=== PATIENT | male | born 1945 | race Caucasian/White ===

== ENCOUNTER 2023-10-08 08:02 | Outpatient (CLI) | payer MEDICARE, SELFPAY ==
--- NOTE | ~2023-10-08 | CT_ITS ---
EXAMINATION: CT abdomen pelvis wo/w con DATE: 10/08/2023 08:53 INDICATION: Kidney mass. TECHNIQUE: Computed tomography (CT) of the abdomen and pelvis was performed without and with 100 mL O mnipaque 350 intravenous contrast. Automated exposure control and iterative reconstruction technique were employed. The dose-length product was 1309.38 mGy-cm. COMPARISON: None. FINDINGS: The visualized portions of the lung bases demonstrate mild atelectasis. No pleural effusion . The heart is normal. There are coronary artery calcifications. No pericardial effusion. There is a small sliding hiatal hernia. There are cysts in the liver measuring up to 10 mm. There are gallstones in the gallbladder, which is normal in size. The spleen, pancreas, and right adrenal gland are maxx l. There is a 17 mm mass in left adrenal gland measuring low attenuation, consistent with an adenoma. Right kidney is normal. There is a 4.9 cm enhancing mass in left kidney. There is no urolithiasis. A penile prosthesis is noted. There is diverticulosis of the colon without evidence of diverticulitis. There are changes of appendectomy. There are no pathologically enlarged lymph nodes. There is no denia e intraperitoneal fluid. There are likely changes of left inguinal hernia repair. There is moderate l umbar stenosis. IMPRESSION: 1. 4.9 cm enhancing mass in left kidney, consistent with renal cell carcinoma versus urothelial carci noma. Reviewed, dictated and finalized at location A. IMPRESSION: 1. 4.9 cm enhancing mass in left kidney, consistent with renal cell carcinoma v ersus urothelial carcinoma.
[2023-10-08 08:37] LABS: Estimated Glomerular Filt Rate 49
== END 2023-10-08 08:03 | disposition home or self-care (01) ==
PROVIDERS: PCP Pediatrics; Visit Provider Urology
DX: N28.89 Other specified disorders of kidney and ureter (principal)
CPT/HCPCS: 74178; Q9967

== ENCOUNTER 2023-10-26 13:07 | Outpatient (CLI) | payer MEDICARE, SELFPAY ==
--- NOTE | 2023-10-26 14:28 | ECG_ITS ---
Test Date: 2023-10-26 14:44:33 Measurements Intervals [place] Rate: 71 P: 1 [place]: 195 QRS: -4 QRSD: 101 T: 28 QT: 378 QTc: 411 Interpretive Statements SINUS RHYTHM BORDERLINE R WAVE PROGRESSION, ANTERIOR LEADS CONSIDER INFERIOR INFARCT, AGE INDETERMINATE ABNORMAL ECG No previous ECG available for comparison Electronically Signed On 10-26-2023 14:54:32 CDT by Colton Boles D.O.
[2023-10-26 15:20] LABS: Hematocrit 50.9 % (42.0-52.0); Hemoglobin 17.2 g/dL (14.0-18.0); Mean Corpuscular HGB Conc 33.8 g/dl (32-36); Mean Corpuscular Volume 85.7 fl (80-100); Platelet Count Result 222 k/mm3 (150-375); Red Blood Count 5.94 M/mm3 (4.6-6.20); Red Cell Distribution Width 14.5 % (11.5-14.5); White Blood Count 8.4 K/mm3 (4.5-10.0)
[2023-10-26 15:21] LABS: Basophils Absolute Auto 0.1 K/mm3 (0.0-0.1); Basophils Percent Auto 0.8 % (0.2-1.2); Eosinophils Absolute Auto 0.2 K/mm3 (0-0.3); Eosinophils Percent Auto 2.1 % (0-4.4); Immature Granulocyte Absolute 0.05 K/mm3 (0.00-0.031); Immature Granulocyte Percent A 0.6 % (0-0.5); Lymphocytes Absolute Auto 2.68 K/mm3 (0.9-3.2); Mean Platelet Volume 10.4 fl (7.4-10.4); Monocytes Absolute Auto 0.9 K/mm3 (0.1-0.6); Monocytes Percent Auto 10.4 % (2.6-8.5); Neutrophils Absolute Auto 4.5 K/mm3 (1.3-6.7); Neutrophils Percent Auto 54.1 % (45.5-73.1)
[2023-10-26 15:28] LABS: Prothrombin Time 13.7 Seconds (11.1-14.7)
[2023-10-26 15:29] LABS: Partial Thromboplastin Time 28.2 Seconds (22.3-36.8)
[2023-10-26 15:39] LABS: Alanine Aminotransferase 22 U/L (6-50); Albumin Level 4.3 g/dL (3.5-5.1); Alkaline Phosphatase 71 U/L (38-126); Anion Gap 12 mmol/L (4-12); Aspartate Amino Transferase 26 U/L (17-59); Bilirubin,Total 1.6 mg/dL (0.2-1.3); Blood Urea Nitrogen 15 mg/dL (9-20); Calcium 9.1 mg/dL (8.4-10.2); Carbon Dioxide 24 mmol/L (22-30); Chloride 102 mmol/L (98-107); Estimated Glomerular Filt Rate > 60; Glucose 110 mg/dL (65-110); Potassium 3.4 mmol/L (3.4-5.0); Sodium 138 mmol/L (137-145)
== END 2023-10-26 13:08 | disposition home or self-care (01) ==
PROVIDERS: PCP Pediatrics; Visit Provider Urology
DX: Z01.818 Encounter for other preprocedural examination (principal); N28.89 Other specified disorders of kidney and ureter; I10 Essential (primary) hypertension; R94.31 Abnormal electrocardiogram [ECG] [EKG]
CPT/HCPCS: 36415; 80053; 85025; 85610; 85730; 86850; 86900; 86901; 87086; 93005

== ENCOUNTER 2023-11-02 12:59 | Inpatient (IN) | payer MEDICARE, SELFPAY ==
[2023-10-26 13:21] VITALS: BP 127/80; PULSE 94; RESP 16; TEMP 36.7; O2SAT 94
[2023-10-26 13:31] VITALS: BMI 27.8
--- NOTE | 2023-10-26 14:09 | PC.NURSE ---
Report to the Outpatient Waiting Room, entrance under the green pavilion located off [facility], at time __06:00am__on date 11/02/23 . Planned Procedure Time: __07:30am .? Time changes happen often and if your time is changed the preop area will call you the afternoon before. - You and your visitor will be asked to self-screen and do not enter if you have any COVID symptoms. Please call surgeon if you need to reschedule. - A mask is optional within the hospital at this time. Patients may have clear liquids (water, carbonated beverages, clear teas, apple juice) until 3 hours prior to surgery with a maximum of 20 ounces. - No food from midnight until time of surgery and no smoking - Infants may have breast milk until 4 hours before surgery, infant formula 6 hours prior to surgery. - Children will be allowed to drink immediately following surgery.? If applicable, please bring a bottle or sippy cup to assist with drinking. Juice, water, soda, and popsicles are readily available.? For infants on formula, please bring formula the day of surgery.? Pacifiers are allowed. Take only the following medications with a SIP of water on the morning of surgery: __Levothyroxine DO NOT STOP ANY OF YOUR OTHER PRESCRIPTION MEDICATIONS PRIOR TO SURGERY EXCEPT THE FOLLOWING Medications to discontinue per physician Hold all vitamins and Aspirin for [address] Ivory Date to take last dose___10/24/23 Please no make-up, nail citizen of [place], hairspray, perfume, deodorant, or body powder the day of surgery.? No jewelry (including any body piercings) or valuables the day of surgery, leave them at home.? Please take a shower or bath the night before, or the morning of, surgery with an antibacterial soap.? Wear comfortable, loose fitting clothing.? - Jewelry must be removed prior to entering the operating room.? Rings and piercings that are not removed may be cut off. - The hospital will not accept responsibility for valuables.? - Please leave all valuables, including medications, at home the day of surgery. If you are going home after surgery, a licensed limousine driver must drive you home.? - NO public transportation without another adult if you receive anesthesia. - We recommend that an adult stay with you for 24 hours following discharge. - We also recommend that you do not drive, make important decision, drink alcoholic beverages, or take any drugs that were not prescribed by your health care provider for at least 24 hours after your discharge time. Follow any additional instructions given to you from your surgeon. Pt to get a copy of Prep from Dr summers upon leaving here. Telephone instructions given to ___patient and asked if any additional questions and then verbalized understanding. Patient advised to call surgeon office or pre surgery nurse liaison [phone] if any additional questions.
[2023-11-02] VITALS (15 sets, daily range): BP systolic 124–155; BP diastolic 61–97; PULSE 67–98; RESP 11–19; TEMP 36.3–37.7; O2SAT 91–98
--- NOTE | ~2023-11-02 | US_ITS ---
US renal BI Ordering provider: Pasha Parsons MD History: . HUGH; s/p left nephrectomy . Comparison: None. Technique: Ultrasound bilateral kidneys. Findings: RIGHT KIDNEY: Measures 11.9x 5.1x 5.3 cm in length which is normal in size. No renal cysts. No renal mass or visualized echogenic stones. Otherwise, normal echotexture and contour. No hydronephrosis. No rmal renal cortical thickness. LEFT KIDNEY: Surgically removed. BLADDER: Not well distended. Penile reservoir is noted. IMPRESSION: No abnormality seen in the right kidney. Reviewed, dictated and finalized at location A.
--- NOTE | ~2023-11-02 | XR_ITS ---
EXAMINATION: XR chest 1V portable DATE: 11/04/2023 13:25 INDICATION: Acute kidney injury. TECHNIQUE: A single frontal view of the chest was obtained. COMPARISON: CT abdomen and pelvis 10/08/2023 FINDINGS: There is a small left pleural effusion. There are airspace opacities in the lower lung zone s. No pneumothorax. The heart size is normal. IMPRESSION: 1. Small left pleural effusion. 2. Airspace opacities in the lower lung zones, likely atelectasis. Reviewed, dictated and finalized at location A.
--- NOTE | 2023-11-02 07:09 | WPDHPUPDATE1 ---
History and Physical Update Update Date/Time: 11/02/23 07:09 History and Physical has been reviewed, including an updated exam of the patient. There are NO changes in the patient's condition. Risks, benefits, and alternatives have been discussed and questions answered. Patient agrees to proceed with procedure. Proceed with hand assist left nephrectomy, possible tur of orifice, ureteroscopy.
--- NOTE | 2023-11-02 07:33 | WPDANESEPP ---
Anes - Eval Pre Procedure Procedure: Operation Date: 11/02/23 07:30 Proposed Procedures p Hand-Assisted Laparoscopic Left Nephrectomy, Possible Left Nephroureterectomy with Trans Uretheral Resection of Orifice, Left Ureteroscopy - Jairon Ivory MD Date/Time: 11/02/23 07:33 Surgeon: Dianelys Pre Op Diagnosis: left renal mass Patient Data Age: 78 Gender: M Height: 1.75 m Weight: 85.7 kg Last Vital Signs Temp 36.7 C 10/26/23 13:21 Pulse 94 10/26/23 13:21 Resp 16 10/26/23 13:21 BP 127/80 10/26/23 13:21 Pulse Ox 94 10/26/23 13:21 O2 Del Method Room Air 10/26/23 13:21 Allergies Allergy/AdvReac Type Severity Reaction Status Date / Time cyclobenzaprine AdvReac Intermediate Diarrhea Verified 10/26/23 13:29 Home Medications Medication Instructions Recorded Confirmed Type Baby Aspirin 81 mg PO DAILY 10/26/23 10/26/23 History enalapril maleate 20 mg tablet 20 mg PO DAILY 10/26/23 10/26/23 History levothyroxine 75 mcg tablet 75 mcg PO DAILY 10/26/23 10/26/23 History omeprazole 40 mg capsule,delayed 40 mg PO DAILY 10/26/23 10/26/23 History release rosuvastatin 10 mg tablet 10 mg PO DAILY 10/26/23 10/26/23 History ECG: [id number] Patient hx anesthesia problems: none Family hx anesthesia problems: none Prior surgeries: prostatectomy Results Review: All pre-operative results and documents have been reviewed as part of the pre-operative evaluation. [facility] Social History Social History Smoking status: Never smoker Alcohol intake: current Drinks per week: 1 Substance use: never Living arrangements: alone Spiritual care concerns: No Comments HTN, HLD, GERD, hypothyroid, hiatal hernia, hx of TIA (no residual) Exam Day of Procedure 11/02/23 07:33 Heart: regular rate and rhythm Lungs: normal air movement Airway: Mallampati scale class II Neurological: alert and oriented
[2023-11-02] MEDS: ceFAZolin 2 GM/D5W 50 ML 2 GM/50 ML BAG IVPB (07:43)
[2023-11-02] MEDS: BUPivacaine HCL 0.5% PF 30 ML VIAL INFILTRATE (08:47)
--- NOTE | 2023-11-02 10:41 | W.PM.PROC2 ---
Procedure Note - Detailed Date of Procedure 11/02/23 Pre-op Diagnosis left renal mass Post-op Diagnosis Same Procedure Performed Hand assisted laparoscopic left nephrectomy Surgeon Jairon Ivory MD Anesthesia General Description of Procedure Patient was taken to the operative suite correctly identified. Once anesthesia was obtained was placed in a decubitus position with all pressure points padded. Saavedra catheter had been placed. Incision was made just lateral to the midline and carried down to the rectus fascia. The peritoneum was entered. GelPort was inserted. Working ports were then placed in standard fashion. White line of [place] was taken down. The colon was reflected. The gonadal vein was visualized and tracked up to the renal hilar area. The ureter was also visualized. Patient also has a 17 mm lesion in the left adrenal. Although it states it is an adenoma the adrenal was very adhered to the kidney. It was decided to take it with the specimen. At this point the renal vein was dissected out. Was transected with the endovascular stapler. The artery was also transected with endovascular stapler. Ureter was dissected down as far as I could take it. Patient does have a penile prosthesis with a reservoir present. I did not want to run the risk of disrupting anything anything in the pelvis where his reservoir was. The kidney was freed posteriorly and laterally. Hemostasis was adequate. We did place Tisseel along the renal hilar area. Surgicel was placed on top of it. All lap counts needle counts were correct. Specimen was then brought out through the hand port. The wound was irrigated. Peritoneum was closed using 3-0 chromic. Fascia was closed using 0 PDS double looped in a running fashion. Skin was closed using Monocryl. 3-0 chromic was also placed underneath the skin in the midline incision. Patient tolerated procedure well without any complications was taken recovery stable condition. This completes dictation. Please send a copy of note to my office. Estimated Blood Loss 100 Drains Yes (Saavedra) Packing No Pathology Yes Complications No immediate complications Condition Stable Disposition PACU
[2023-11-02] MEDS: LACTATED RINGERS 1,000 ML 30 ML IV CONT ×2 (11:01)
[2023-11-02 11:43] LABS: Hematocrit 48.4 % (42.0-52.0); Hemoglobin 16.1 g/dL (14.0-18.0)
[2023-11-02 11:56] LABS: Anion Gap 9 mmol/L (4-12); Blood Urea Nitrogen 11 mg/dL (9-20); Calcium 8.9 mg/dL (8.4-10.2); Carbon Dioxide 25 mmol/L (22-30); Chloride 103 mmol/L (98-107); Estimated CRCL calculation 38 ml/min; Estimated Glomerular Filt Rate 49; Glucose 147 mg/dL (65-110); Potassium 4.5 mmol/L (3.4-5.0); Sodium 137 mmol/L (137-145)
[2023-11-02] MEDS: fentaNYL CITRATE INJ (*CRX) 100 MCG/2 ML VIAL 25 MCG IV PUSH ×4 (12:36→12:52)
--- NOTE | 2023-11-02 13:11 | PC.NURSE ---
This patient, Helder Concepcion, was admitted to [facility] Surg Room 300-01 at 13:05. Patient/family oriented to hospital policies and general routines including ID bracelet, bed and alarms, visiting hours, pain management, procedures, bathroom and other care routines, personal items, smoking policy, room service/diet, and visiting hours. Information on how to activate the Rapid Response Team has been discussed. Patient/Family are encouraged to report perceived risks to care and to ask questions if they do not understand what they are told or what they should do.
[2023-11-02] MEDS: HYDROmorphone HCL INJ (*CRX) 1 MG/ML SYR 0.5 MG IV PUSH ×3 (13:44→22:23)
[2023-11-02] MEDS: SODIUM CHLORIDE 0.9% IV 1,000 ML 100 ML IV CONT (13:45)
[2023-11-02] MEDS: ONDANSETRON INJ 4 MG/2 ML VIAL IV PUSH (13:45)
[2023-11-02] MEDS: ceFAZolin 1 GM/NS 50 ML 1 GM/50 ML BAG IVPB ×2 (14:29→22:23)
[2023-11-02] MEDS: DOCUSATE SODIUM 100 MG CAPSULE PO (16:19)
[2023-11-02] MEDS: BENZOCAINE/MENTHOL (*BKC) 18 EA LOZENGE 1 LOZENGE PO (18:26)
[2023-11-02] MEDS: FAMOTIDINE 20 MG/2 ML VIAL IV PUSH (20:32)
[2023-11-02] MEDS: DEXTROSE 5%/LACTATED RINGERS 1,000 ML 150 ML IV CONT ×2 (20:32→20:40)
[2023-11-03 00:28] LABS: Glucose Point of Care 160 mg/dl (65-105)
[2023-11-03] MEDS: DEXTROSE 5%/LACTATED RINGERS 1,000 ML 150 ML IV CONT (04:55)
[2023-11-03 05:42] LABS: Basophils Percent Auto 0.2 % (0.2-1.2); Hematocrit 42.5 % (42.0-52.0); Immature Granulocyte Absolute 0.07 K/mm3 (0.00-0.031); Immature Granulocyte Percent A 0.5 % (0-0.5); Lymphocytes Absolute Auto 1.65 K/mm3 (0.9-3.2); Lymphocytes Percent Auto 12.7 % (18.3-44.2); Mean Corpuscular HGB Conc 32.9 g/dl (32-36); Mean Corpuscular Hemoglobin 28.3 pg (26-34); Mean Platelet Volume 10.6 fl (7.4-10.4); Monocytes Absolute Auto 1.5 K/mm3 (0.1-0.6); Monocytes Percent Auto 11.6 % (2.6-8.5); Neutrophils Absolute Auto 9.8 K/mm3 (1.3-6.7); Platelet Count Result 184 k/mm3 (150-375); Red Blood Count 4.94 M/mm3 (4.6-6.20); Red Cell Distribution Width 14.4 % (11.5-14.5)
[2023-11-03 05:53] LABS: Anion Gap 7 mmol/L (4-12); Blood Urea Nitrogen 17 mg/dL (9-20); Calcium 8.5 mg/dL (8.4-10.2); Carbon Dioxide 25 mmol/L (22-30); Chloride 102 mmol/L (98-107); Estimated CRCL calculation 28 ml/min; Estimated Glomerular Filt Rate 34; Glucose 114 mg/dL (65-110); Sodium 134 mmol/L (137-145)
[2023-11-03 05:56] VITALS: BP 114/69; PULSE 71; RESP 18; TEMP 37.4; O2SAT 97
[2023-11-03] MEDS: LEVOTHYROXINE SODIUM 75 MCG TABLET PO (06:03)
[2023-11-03] MEDS: ceFAZolin 1 GM/NS 50 ML 1 GM/50 ML BAG IVPB (06:04)
[2023-11-03 07:43] VITALS: BP 113/68; PULSE 73; RESP 16; TEMP 37.3; O2SAT 93
[2023-11-03] MEDS: DOCUSATE SODIUM 100 MG CAPSULE PO ×2 (08:23→16:06)
[2023-11-03] MEDS: ROSUVASTATIN 10 MG TABLET PO (08:23)
[2023-11-03] MEDS: FAMOTIDINE 20 MG/2 ML VIAL IV PUSH ×2 (08:23→20:47)
[2023-11-03] MEDS: ENALAPRIL MALEATE 10 MG TABLET 20 MG PO (08:24)
[2023-11-03 12:00] VITALS: BP 128/70; PULSE 84; RESP 16; TEMP 37; O2SAT 96
[2023-11-03] MEDS: HYDROcodone/acetaminophen (*CRX) 5-325 MG TABLET 2 TAB PO (12:02)
[2023-11-03 12:13] LABS: Glucose Point of Care 100 mg/dl (65-105)
--- NOTE | 2023-11-03 12:41 | P.PNUR_ITS ---
Progress Note: A&P Assessment and Plan (1) Left renal mass: Code(s): N28.89 - Other specified disorders of kidney and ureter Status: Acute Assessment and Plan: S/p left nephrectomy 11/02/23. POD#1 doing well. Continue to monitor. Advance diet. Plan for ayala removal tomorrow morning. Repeat BMP in morning. Subjective Subjective Date/Time Seen: 11/03/23 12:41 Interval history: Feeling fair today. Complains of some abdominal fullness. He is passing flatus b ut feels he needs to have a bowel movement. Denies flank pain or back pain. No incisional pain. Denies nausea, vomiting, fever, or chills. Tolerating his diet. No issues with ayala catheter. Review of Systems Review of Systems: All systems reviewed & are unremarkable except as noted in HPI and below Exam Narrative: General: Awake, alert, comfortable, no acute distress HEENT: Normocephalic, atraumatic, sclerae anicteric Respiratory: Normal respiratory effort, no accessory muscle use Abdomen: Nondistended, soft, nontender, incisions clean and dry : ayala catheter draining clear yellow urine Skin: Normal coloration, warm and dry Neurologic: No focal neuro deficits noted Psychiatric: Appropriate mood and affect, judgment and insight intact Objective Data Vital Signs Vital Signs: Vital Signs - 24 hr 11/02/23 12:50 11/02/23 13:15 11/02/23 13:30 Temperature 97.4 F L 98.0 F Pulse Rate 89 94 98 Respiratory Rate 11 L 12 14 Blood Pressure 150/88 H 141/90 H 127/89 Pulse Oximetry 95 96 95 Oxygen Delivery Nasal Cannula Oxygen Flow Rate 2 11/02/23 14:09 11/02/23 14:00 11/02/23 20:10 Temperature 98.5 F 99.8 F H Pulse Rate 97 91 Respiratory Rate 12 18 Blood Pressure 150/91 H 138/61 Pulse Oximetry 93 96 94 Oxygen Delivery Nasal Cannula Oxygen Flow Rate 2 11/02/23 23:40 11/03/23 05:56 11/03/23 07:43 Temperature 99.3 F 99.4 F 99.1 F Pulse Rate 97 71 73 Respiratory Rate 18 18 16 Blood Pressure 133/65 114/69 113/68 Pulse Oximetry 93 97 93 Oxygen Delivery Oxygen Flow Rate 11/03/23 08:23 11/03/23 12:00 Temperature 98.6 F Pulse Rate 84 Respiratory Rate 16 Blood Pressure 128/70 Pulse Oximetry 96 Oxygen Delivery Room Air Oxygen Flow Rate Intake/Output Intake/Output: Intake & Output 10/31/23 11/01/23 11/02/23 11/03/23 23:59 23:59 23:59 23:59 Intake Total 1046.7 1400 Output Total 775 Balance 1046.7 625 Meds/Results Medications: Active Medications Generic Name Dose Route Start Last Admin Trade Name Freq PRN Reason Stop Dose Admin Hydrocodone Bitart/Acetaminophen 1 tab 11/03/23 05:00 Hydrocodone/Acetaminophen (*Crx) 5-325 Mg Tablet PO Q4H PRN Pain Rated 1-3 Hydrocodone Bitart/Acetaminophen 2 tab 11/03/23 05:00 11/03/23 12:02 Hydrocodone/Acetaminophen (*Crx) 5-325 Mg Tablet PO 2 tab Q4H PRN Administration Pain Rated 4-6 Benzocaine 1 lozenge 11/02/23 18:04 11/02/23 18:26 Benzocaine/Menthol (*Bkc) 18 Ea Lozenge PO 1 lozenge PRN PRN Administration Sore Throat Docusate Sodium 100 mg 11/02/23 17:00 11/03/23 08:23 Docusate Sodium 100 Mg Capsule PO 100 mg BID JUANJO Administration Enalapril Maleate 20 mg 11/03/23 09:00 11/03/23 08:24 Enalapril Maleate 10 Mg Tablet PO 20 mg DAILY JUANJO Administration Famotidine 20 mg 11/02/23 21:00 11/03/23 08:23 Famotidine 20 Mg/2 Ml Vial IV PUSH 11/04/23 09:01 20 mg Q12HR JUANJO Administration Hydromorphone HCl 0.5 mg 11/02/23 12:59 11/02/23 22:23 Hydromorphone Hcl Inj (*Crx) 1 Mg/Ml Syr IV PUSH 0.5 mg Q4H PRN Administration Pain Rated 7-10 Dextrose/Lactated Ringer's 1,000 mls @ 150 mls/hr 11/02/23 12:59 11/03/23 04:55 Dextrose 5%/Lactated Ringers IV CONT 150 mls/hr .Q6H40M JUANJO Administration Sodium Chloride 1,000 mls @ 100 mls/hr 11/02/23 12:59 11/02/23 20:31 Normal Saline Iv IV CONT 0 mls/hr .Q10H JUANJO Infusion Levothyroxine Sodium 75 mcg 11/03/23 06:30 11/03/23 06:03 Levothyroxine Sodium 75 Mcg Tablet PO 75 mcg DAILY@0630 JUANJO Administration Morphine Sulfate 1 mg 11/02/23 12:59 Morphine Sulfate (*Crx) 2 Mg/Ml Inj IV PUSH Q2H PRN Pain Rated 4-6 Naloxone HCl 0.1 mg 11/02/23 12:59 Naloxone Hcl 0.4 Mg/Ml Vial IV PUSH Q2M PRN Opiate Reversal Ondansetron HCl 4 mg 11/02/23 12:59 11/02/23 13:45 Ondansetron Inj 4 Mg/2 Ml Vial IV PUSH 4 mg Q6H PRN Administration Nausea And Vomiting Rosuvastatin Calcium 10 mg 11/03/23 09:00 11/03/23 08:23 Rosuvastatin 10 Mg Tablet PO 10 mg DAILY JUANJO Administration Labs Labs: Laboratory Results - last 24 hr 11/02/23 11/03/23 11/03/23 23:43 05:15 12:11 WBC 13.0 H RBC 4.94 Hgb 14.0 Hct 42.5 MCV 86.0 MCH 28.3 MCHC 32.9 RDW 14.4 Plt Count 184 MPV 10.6 H Immature Gran % (Auto) 0.5 Neut % (Auto) 75.0 H Lymph % (Auto) 12.7 L [place] % (Auto) 11.6 H Eos % (Auto) 0.0 Baso % (Auto) 0.2 Lymph # (Auto) 1.65 [place] # (Auto) 1.5 H Eos # (Auto) 0.0 Baso # (Auto) 0.0 Abs Immat Gran (auto) 0.07 H Absolute Neuts (auto) 9.8 H Absolute Nucleated RBC 0.000 Nucleated RBC % 0.0 Sodium 134 L Potassium 4.0 Chloride 102 Carbon Dioxide 25 Anion Gap 7 BUN 17 Creatinine 1.90 H Estim Creat Clear Calc 28 Estimated GFR 34 L Glucose 114 H POC Capillary Glucose 160 H 100 Calcium 8.5
[2023-11-03 18:13] LABS: Glucose Point of Care 109 mg/dl (65-105)
[2023-11-03 20:48] VITALS: BP 118/70; PULSE 88; RESP 16; TEMP 37.4; O2SAT 94
[2023-11-04 01:16] VITALS: BP 117/66; PULSE 96; RESP 16; TEMP 37.7; O2SAT 93
[2023-11-04] MEDS: DEXTROSE 5%/LACTATED RINGERS 1,000 ML 75 ML IV CONT ×2 (01:30→09:05)
[2023-11-04 03:26] LABS: Glucose Point of Care 123 mg/dl (65-105)
[2023-11-04 05:00] VITALS: BP 136/68; PULSE 87; RESP 16; TEMP 37.5; O2SAT 93
[2023-11-04] MEDS: LEVOTHYROXINE SODIUM 75 MCG TABLET PO (06:32)
[2023-11-04] MEDS: HYDROcodone/acetaminophen (*CRX) 5-325 MG TABLET 2 TAB PO (06:36)
[2023-11-04 07:08] LABS: Hematocrit 40.6 % (42.0-52.0); Hemoglobin 13.8 g/dL (14.0-18.0); Mean Corpuscular Hemoglobin 29.2 pg (26-34); Mean Platelet Volume 10.8 fl (7.4-10.4); Platelet Count Result 153 k/mm3 (150-375); Red Blood Count 4.72 M/mm3 (4.6-6.20); Red Cell Distribution Width 14.4 % (11.5-14.5); White Blood Count 10.4 K/mm3 (4.5-10.0)
[2023-11-04 07:19] LABS: Anion Gap 6 mmol/L (4-12); Blood Urea Nitrogen 15 mg/dL (9-20); Calcium 8.3 mg/dL (8.4-10.2); Carbon Dioxide 24 mmol/L (22-30); Chloride 103 mmol/L (98-107); Estimated CRCL calculation 24 ml/min; Estimated Glomerular Filt Rate 29; Glucose 109 mg/dL (65-110); Potassium 3.6 mmol/L (3.4-5.0); Sodium 133 mmol/L (137-145)
[2023-11-04 08:00] VITALS: BP 134/76; PULSE 83; RESP 18; TEMP 37.3; O2SAT 91
[2023-11-04] MEDS: DOCUSATE SODIUM 100 MG CAPSULE PO ×2 (09:05→16:51)
[2023-11-04] MEDS: ENALAPRIL MALEATE 10 MG TABLET 20 MG PO (09:05)
[2023-11-04] MEDS: ROSUVASTATIN 10 MG TABLET PO (09:05)
[2023-11-04] MEDS: FAMOTIDINE 20 MG/2 ML VIAL IV PUSH (09:05)
--- NOTE | 2023-11-04 09:31 | P.PNUR_ITS ---
Progress Note: A&P Assessment and Plan (1) Left renal mass: Code(s): N28.89 - Other specified disorders of kidney and ureter Status: Acute Assessment and Plan: S/p left nephrectomy 11/02/23. POD#2, doing well. Continue to monitor. Will plan for ayala removal today. Urine output is good. (2) Acute kidney injury: Code(s): N17.9 - Acute kidney failure, unspecified Status: Acute Assessment and Plan: Creatinine trending up to 2.2 today. Will request nephrology consultation for further evaluation; appreciate recommendations. (3) Constipation: Code(s): K59.00 - Constipation, unspecified Status: Acute Assessment and Plan: Will continue miralax and stool softeners Subjective Subjective Date/Time Seen: 11/04/23 09:31 Interval history: Doing well today. Complains of constipation. Denies abdominal fullness/distension. Denies flank pain or back pain. No nausea, vomiting, fever, or chills. Tolerating his diet. Review of Systems Review of Systems: All systems reviewed & are unremarkable except as noted in HPI and below Exam 2 Narrative: General: Awake, alert, comfortable, no acute distress HEENT: Normocephalic, atraumatic, sclerae anicteric Respiratory: Normal respiratory effort, no accessory muscle use Abdomen: Nondistended, soft, nontender, incisions clean and dry : ayala catheter draining clear yellow urine Skin: Normal coloration, warm and dry Neurologic: No focal neuro deficits noted Psychiatric: Appropriate mood and affect, judgment and insight intact Objective Data Vital Signs Vital Signs: Vital Signs - 24 hr 11/03/23 12:00 11/03/23 20:48 11/04/23 01:16 Temperature 98.6 F 99.4 F 99.8 F H Pulse Rate 84 88 96 Respiratory Rate 16 16 16 Blood Pressure 128/70 118/70 117/66 Pulse Oximetry 96 94 93 Oxygen Delivery 11/04/23 05:00 11/04/23 08:00 11/04/23 08:00 Temperature 99.5 F 99.1 F Pulse Rate 87 83 Respiratory Rate 16 18 Blood Pressure 136/68 134/76 Pulse Oximetry 93 91 Oxygen Delivery Room Air Intake/Output Intake/Output: Intake & Output 11/01/23 11/02/23 11/03/23 11/04/23 23:59 23:59 23:59 23:59 Intake Total 1046.7 1760 2663.7 Output Total 775 1100 Balance 1046.7 985 1563.7 Meds/Results Medications: Active Medications Generic Name Dose Route Start Last Admin Trade Name Freq PRN Reason Stop Dose Admin Hydrocodone Bitart/Acetaminophen 1 tab 11/03/23 05:00 Hydrocodone/Acetaminophen (*Crx) 5-325 Mg Tablet PO Q4H PRN Pain Rated 1-3 Hydrocodone Bitart/Acetaminophen 2 tab 11/03/23 05:00 11/04/23 06:36 Hydrocodone/Acetaminophen (*Crx) 5-325 Mg Tablet PO 2 tab Q4H PRN Administration Pain Rated 4-6 Benzocaine 1 lozenge 11/02/23 18:04 11/02/23 18:26 Benzocaine/Menthol (*Bkc) 18 Ea Lozenge PO 1 lozenge PRN PRN Administration Sore Throat Docusate Sodium 100 mg 11/02/23 17:00 11/04/23 09:05 Docusate Sodium 100 Mg Capsule PO 100 mg BID JUANJO Administration Enalapril Maleate 20 mg 11/03/23 09:00 11/04/23 09:05 Enalapril Maleate 10 Mg Tablet PO 20 mg DAILY JUANJO Administration Hydromorphone HCl 0.5 mg 11/02/23 12:59 11/02/23 22:23 Hydromorphone Hcl Inj (*Crx) 1 Mg/Ml Syr IV PUSH 0.5 mg Q4H PRN Administration Pain Rated 7-10 Dextrose/Lactated Ringer's 1,000 mls @ 75 mls/hr 11/02/23 12:59 11/04/23 09:05 Dextrose 5%/Lactated Ringers IV CONT 75 mls/hr .[id number] JUANJO Administration Sodium Chloride 1,000 mls @ 100 mls/hr 11/02/23 12:59 11/02/23 20:31 Normal Saline Iv IV CONT 0 mls/hr .Q10H JUANJO Infusion Levothyroxine Sodium 75 mcg 11/03/23 06:30 11/04/23 06:32 Levothyroxine Sodium 75 Mcg Tablet PO 75 mcg DAILY@0630 JUANJO Administration Morphine Sulfate 1 mg 11/02/23 12:59 Morphine Sulfate (*Crx) 2 Mg/Ml Inj IV PUSH Q2H PRN Pain Rated 4-6 Naloxone HCl 0.1 mg 11/02/23 12:59 Naloxone Hcl 0.4 Mg/Ml Vial IV PUSH Q2M PRN Opiate Reversal Ondansetron HCl 4 mg 11/02/23 12:59 11/02/23 13:45 Ondansetron Inj 4 Mg/2 Ml Vial IV PUSH 4 mg Q6H PRN Administration Nausea And Vomiting Polyethylene Glycol 17 gm 11/03/23 12:57 Polyethylene Glycol 3350 17 Gm Powd.Pack PO QAM PRN Constipation Rosuvastatin Calcium 10 mg 11/03/23 09:00 11/04/23 09:05 Rosuvastatin 10 Mg Tablet PO 10 mg DAILY JUANJO Administration Labs Labs: Laboratory Results - last 24 hr 11/03/23 11/03/23 11/04/23 12:11 18:08 01:09 WBC RBC Hgb Hct MCV MCH MCHC RDW Plt Count MPV Sodium Potassium Chloride Carbon Dioxide Anion Gap BUN Creatinine Estim Creat Clear Calc Estimated GFR Glucose POC Capillary Glucose 100 109 H 123 H Calcium 11/04/23 06:18 WBC 10.4 H RBC 4.72 Hgb 13.8 L Hct 40.6 L MCV 86.0 MCH 29.2 MCHC 34.0 RDW 14.4 Plt Count 153 MPV 10.8 H Sodium 133 L Potassium 3.6 Chloride 103 Carbon Dioxide 24 Anion Gap 6 BUN 15 Creatinine 2.20 H Estim Creat Clear Calc 24 Estimated GFR 29 L Glucose 109 POC Capillary Glucose Calcium 8.3 L
[2023-11-04] MEDS: polyethylene glycoL 3350 17 GM POWD.PACK PO (10:09)
[2023-11-04 12:00] VITALS: BP 118/74; PULSE 69; RESP 18; TEMP 36.8; O2SAT 94
--- NOTE | 2023-11-04 12:05 | PM.CNNEP ---
Assessment and Plan Assessment and plan (1) Acute kidney injury: Code(s): N17.9 - Acute kidney failure, unspecified Status: Acute Assessment and Plan: baseline creatinine seems to run ~ 1.1 - 1.4mg/dl up to 1.9 yesterday, and now 2.2mg/dl by AM labs no associated critical electrolytes, acid-base disorder or volume overload making good urine output etiology not clear... no apparent issues with hypotension post procedure or during operation check UA, urine studies, CPK and renal ultrasound hold SATISH-I follow trend of repeat labs and UOP (2) Left renal mass: Code(s): N28.89 - Other specified disorders of kidney and ureter Status: Acute Assessment and Plan: s/p hand assisted laparoscopic left nephrectomy (on 11/02/23) Urology following (3) Hypertension: Code(s): I10 - Essential (primary) hypertension Status: Chronic Assessment and Plan: reasonable control at this time plan on holding SATISH-I may need another temporary BP agent (i.e. hydralazine or amlodipine) if BP rises off enalapril follow trend of hemodynamics I will continue to follow the patient with you while he remains hospitalized and make further recommendations as deemed necessary. Thank you for allowing me to participate in the care of this patient. History of Present Illness Reason for Consult Consult date: 11/04/23 Reason for consult: acute renal failure Chief Complaint Chief complaint: left renal mass History of Present Illness Narrative: The patient is an 78-year-old male with a past medical history as outlined below who was directly admitted to [facility] following his scheduled left nephrectomy done on 11/02/2023. The patient was noted to have a left renal mass by outpatient testing that was concerning for possible malignancy. He was referred to Urology for further evaluation of this issue and options were discussed with the patient in terms of treatment and he elected to proceed with a hand assisted laparoscopic left nephrectomy for definitive treatment of this issue. He underwent this procedure on 11/02/2023 without any issues or problems and was admitted to the hospital for routine postoperative care. It was noted by labs the following day after his surgery that his creatinine increased to 1.9 and subsequently up to 2.2 mg/dL by labs done this morning. In spite of this change in his renal function, he has no critical electrolyte abnormalities and continues to make fairly good urine output as well. He was initially on IV fluids but he has been eating and drinking reasonably well so these were discontinued today. Renal consultation was requested due to his acute kidney injury/acute renal failure. From review his records, his baseline creatinine seems run around 1.1 - 1.4mg/dl. His creatinine on admission was 1.4 mg/dL prior to the recent decline. As already mentioned, despite the rise in his creatinine, he continues to make fairly good urine output and has not had any issues or problems with critical electrolyte abnormalities, metabolic acidosis, or volume overload. His IV fluids were discontinued today as he has been eating and drinking reasonably well and has not had any issues or problems with postoperative nausea/vomiting. Currently, at the time my visit, he feels reasonably well. Review of Systems Review of Systems: As per HPI. [facility] Past Medical History Medical History (Updated 11/05/23 @ 10:13 by Pasha Parsons MD) Benign hypertension with chronic kidney disease GERD (gastroesophageal reflux disease) Hyperlipidemia Hypothyroidism Social History Social History Smoking status: Never smoker Alcohol intake: current Drinks per week: 0 Substance use: never Do You Feel Safe in your Home?: Yes Lack of Transportation: No Lack of Food: Never True Current Housing: I Have Housing Concerned About Future Housing: No Difficulty Paying Gas/Electric Bills: No Difficulty Paying for Meds: No Currently Unemployed: No Education: Decline to Answer Difficulty w/ Childcare or Family Care: No Living arrangements: alone Spiritual care concerns: No Meds Home Medications and Allergies Home Medications Medication Instructions Recorded Confirmed Type Baby Aspirin 81 mg PO DAILY 10/26/23 10/26/23 History enalapril maleate 20 mg tablet 20 mg PO DAILY 10/26/23 10/26/23 History levothyroxine 75 mcg tablet 75 mcg PO DAILY 10/26/23 11/02/23 History omeprazole 40 mg capsule,delayed 40 mg PO DAILY 10/26/23 10/26/23 History release rosuvastatin 10 mg tablet 10 mg PO DAILY 10/26/23 10/26/23 History Allergies Allergy/AdvReac Type Severity Reaction Status Date / Time cyclobenzaprine AdvReac Intermediate Diarrhea Verified 11/02/23 07:43 Vital Signs Vital Signs Temp Pulse Resp BP Pulse Ox O2 Del Method 11/04/23 12:00 98.3 F 69 18 118/74 94 11/04/23 08:00 Room Air 11/04/23 08:00 99.1 F 83 18 134/76 91 11/04/23 05:00 99.5 F 87 16 136/68 93 11/04/23 01:16 99.8 F H 96 16 117/66 93 11/03/23 20:48 99.4 F 88 16 118/70 94 Exam Narrative: GENERAL APPEARANCE: elderly but well developed well nourished male in no acute distress HEENT: normocephalic, atraumatic, normal conjunctiva and sclera, nares patient NECK: no lymphadenopathy, thyromegaly, or JVD MOUTH: normal lips, teeth, and gums CARDIOVASCULAR: RRR, normal S1 and S2, no rub RESPIRATORY: clear to auscultation bilaterally ABDOMEN: soft, nontender, nondistended, positive bowel sounds present; incision c/d/i EXTREMITIES: no evidence of cyanosis, clubbing, or edema NEUROLOGICAL: alert and oriented x 3; CN II - XII intact bilaterally; no focal deficits noted Results Lab Results 11/05/23 05:30 11/05/23 05:30 Lab results: Most recent lab results Calcium 8.3 mg/dL (8.4-10.2) L 11/04/23 06:18 Urine Creatinine 63.3 mg/dL 11/04/23 14:07
[2023-11-04 14:50] LABS: Creatinine Urine 63.3 mg/dL; Total Protein Urine Random 48 mg/dL; Urea Random Urine 243 MG/DL
[2023-11-04 14:52] LABS: Creatinine Urine 63.1 mg/dL; Total Protein Urine Random 48 mg/dL; Ur Ttl Prot Creatinine Ratio 0.76 mg/mg (0-0.20)
[2023-11-04 14:53] LABS: Sodium Urine Random 26 meq/L
[2023-11-04 15:08] LABS: Bacteria Urine None Seen /hpf; Bilirubin Urine Negative (Negative); Blood Urine 2+ (Negative); Color Urine Yellow (Yellow); Glucose Urine UA Negative (Negative); Ketones Urine Negative (Negative); Leukocyte Esterase Ur Trace LEU/UL (Negative); Nitrate Urine Negative (Negative); Non Pathogenic Casts 0-2; Protein Urine Trace mg/dL (Negative); Specific Grav Ur 1.006 (1.001-1.035); Squamous Epithelial Cell Urine None Seen /hpf (Few); Urobilinogen Urine 0.2 mg/dL (<2.0); WBC Urine 0-5 /hpf (0-3); pH Urine 6.5 (5.0-9.0)
[2023-11-04 15:20] LABS: Eosinophil Urine None Seen % (None Seen); Urine Eos QC 2nd Tech Confirmed
[2023-11-04 15:22] LABS: Add Urine Microscopic? YES; Appearance Urine Clear (Clear)
[2023-11-04 16:00] VITALS: BP 124/68; PULSE 74; RESP 18; TEMP 36.8; O2SAT 96
[2023-11-04 20:00] VITALS: BP 150/84; PULSE 84; RESP 16; TEMP 36.8; O2SAT 94
[2023-11-04] MEDS: HYDROcodone/acetaminophen (*CRX) 5-325 MG TABLET 1 TAB PO (21:40)
[2023-11-04] MEDS: SODIUM CHLORIDE 0.9% IV 1,000 ML 100 ML IV CONT (21:42)
[2023-11-05 00:40] VITALS: BP 115/62; PULSE 86; RESP 16; TEMP 36.7; O2SAT 94
[2023-11-05] MEDS: LEVOTHYROXINE SODIUM 75 MCG TABLET PO (05:44)
[2023-11-05 06:10] VITALS: BP 154/83; PULSE 71; RESP 16; TEMP 36.3; O2SAT 91
[2023-11-05 06:14] LABS: Basophils Percent Auto 0.4 % (0.2-1.2); Eosinophils Absolute Auto 0.2 K/mm3 (0-0.3); Eosinophils Percent Auto 2.6 % (0-4.4); Hematocrit 39.6 % (42.0-52.0); Hemoglobin 13.2 g/dL (14.0-18.0); Immature Granulocyte Absolute 0.05 K/mm3 (0.00-0.031); Immature Granulocyte Percent A 0.6 % (0-0.5); Lymphocytes Absolute Auto 1.51 K/mm3 (0.9-3.2); Lymphocytes Percent Auto 17.6 % (18.3-44.2); Mean Corpuscular HGB Conc 33.3 g/dl (32-36); Mean Corpuscular Hemoglobin 28.9 pg (26-34); Mean Corpuscular Volume 86.7 fl (80-100); Mean Platelet Volume 10.5 fl (7.4-10.4); Monocytes Percent Auto 11.3 % (2.6-8.5); Neutrophils Absolute Auto 5.8 K/mm3 (1.3-6.7); Neutrophils Percent Auto 67.5 % (45.5-73.1); Platelet Count Result 152 k/mm3 (150-375); Red Blood Count 4.57 M/mm3 (4.6-6.20); Red Cell Distribution Width 14.4 % (11.5-14.5); White Blood Count 8.6 K/mm3 (4.5-10.0)
[2023-11-05 06:27] LABS: Alanine Aminotransferase 11 U/L (6-50); Alkaline Phosphatase 50 U/L (38-126); Anion Gap 1 mmol/L (4-12); Aspartate Amino Transferase 30 U/L (17-59); Bilirubin,Total 2.6 mg/dL (0.2-1.3); Blood Urea Nitrogen 17 mg/dL (9-20); Calcium 8.3 mg/dL (8.4-10.2); Carbon Dioxide 24 mmol/L (22-30); Chloride 103 mmol/L (98-107); Creatine Kinase 332 U/L (55-170); Estimated CRCL calculation 23 ml/min; Estimated Glomerular Filt Rate 27; Glucose 90 mg/dL (65-110); Potassium 3.8 mmol/L (3.4-5.0); Sodium 128 mmol/L (137-145)
[2023-11-05] MEDS: DOCUSATE SODIUM 100 MG CAPSULE PO ×2 (08:05→16:54)
[2023-11-05] MEDS: polyethylene glycoL 3350 17 GM POWD.PACK PO (08:05)
[2023-11-05] MEDS: ROSUVASTATIN 10 MG TABLET PO (08:05)
--- NOTE | 2023-11-05 09:18 | WPDUROPN2 ---
Progress Note: A&P Assessment and Plan (1) Left renal mass: Code(s): N28.89 - Other specified disorders of kidney and ureter Status: Acute Assessment and Plan: S/p left nephrectomy 11/02/23. POD#3, doing well. Continue to monitor. (2) Acute kidney injury: Code(s): N17.9 - Acute kidney failure, unspecified Status: Acute Assessment and Plan: Creatinine trending up to 2.3 today. Appreciate Nephrology consultation. Laboratory workup so for unrevealing. Continue to monitor renal function closely (3) Constipation: Code(s): K59.00 - Constipation, unspecified Status: Acute Assessment and Plan: Will continue miralax and stool softeners (4) Hyponatremia: Code(s): E87.1 - Hypo-osmolality and hyponatremia Status: Acute Assessment and Plan: Slight decline in sodium today to 128. Will request hospitalist consultation for further evaluation; appreciate recommendations Subjective Subjective Date/Time Seen: 11/05/23 09:18 Interval history: Doing well today. Has been up walking around the halls. Saavedra removed yesterday and he has been voiding without difficulty. Continues to complain of constipation but now passing flatus. Tolerating his diet. No N/V/F/C. No abdominal pain or flank pain. Review of Systems Review of Systems: All systems reviewed & are unremarkable except as noted in HPI and below Exam Narrative: General: Awake, alert, comfortable, no acute distress HEENT: Normocephalic, atraumatic, sclerae anicteric Respiratory: Normal respiratory effort, no accessory muscle use Abdomen: Nondistended, soft, nontender Skin: Normal coloration, warm and dry Neurologic: No focal neuro deficits noted Psychiatric: Appropriate mood and affect, judgment and insight intact Objective Data Vital Signs Vital Signs: Vital Signs - 24 hr 11/04/23 12:00 11/04/23 16:00 11/04/23 20:00 Temperature 98.3 F 98.3 F 98.2 F Pulse Rate 69 74 84 Respiratory Rate 18 18 16 Blood Pressure 118/74 124/68 150/84 H Pulse Oximetry 94 96 94 Oxygen Delivery 11/04/23 20:00 11/05/23 00:40 11/05/23 06:10 Temperature 98.0 F 97.4 F L Pulse Rate 86 71 Respiratory Rate 16 16 Blood Pressure 115/62 154/83 H Pulse Oximetry 94 91 Oxygen Delivery Room Air 11/05/23 08:05 Temperature Pulse Rate Respiratory Rate Blood Pressure Pulse Oximetry Oxygen Delivery Room Air Intake/Output Intake/Output: Intake & Output 11/02/23 11/03/23 11/04/23 11/05/23 23:59 23:59 23:59 23:59 Intake Total 1046.7 1760 3403.7 Output Total 775 1750 950 Balance 1046.7 985 1653.7 -950 Meds/Results Medications: Active Medications Generic Name Dose Route Start Last Admin Trade Name Freq PRN Reason Stop Dose Admin Hydrocodone Bitart/Acetaminophen 1 tab 11/03/23 05:00 11/04/23 21:40 Hydrocodone/Acetaminophen (*Crx) 5-325 Mg Tablet PO 1 tab Q4H PRN Administration Pain Rated 1-3 Hydrocodone Bitart/Acetaminophen 2 tab 11/03/23 05:00 11/04/23 06:36 Hydrocodone/Acetaminophen (*Crx) 5-325 Mg Tablet PO 2 tab Q4H PRN Administration Pain Rated 4-6 Benzocaine 1 lozenge 11/02/23 18:04 11/02/23 18:26 Benzocaine/Menthol (*Bkc) 18 Ea Lozenge PO 1 lozenge PRN PRN Administration Sore Throat Docusate Sodium 100 mg 11/02/23 17:00 11/05/23 08:05 Docusate Sodium 100 Mg Capsule PO 100 mg BID JUANJO Administration Enalapril Maleate 20 mg 11/03/23 09:00 11/04/23 09:05 Enalapril Maleate 10 Mg Tablet PO 20 mg DAILY JUANJO Administration Hydromorphone HCl 0.5 mg 11/02/23 12:59 11/02/23 22:23 Hydromorphone Hcl Inj (*Crx) 1 Mg/Ml Syr IV PUSH 0.5 mg Q4H PRN Administration Pain Rated 7-10 Sodium Chloride 1,000 mls @ 100 mls/hr 11/02/23 12:59 11/02/23 20:31 Normal Saline Iv IV CONT 0 mls/hr .Q10H JUANJO Infusion Levothyroxine Sodium 75 mcg 11/03/23 06:30 11/05/23 05:44 Levothyroxine Sodium 75 Mcg Tablet PO 75 mcg DAILY@0630 JUANJO Administration Morphine Sulfate 1 mg 11/02/23 12:59 Morphine Sulfate (*Crx) 2 Mg/Ml Inj IV PUSH Q2H PRN Pain Rated 4-6 Naloxone HCl 0.1 mg 11/02/23 12:59 Naloxone Hcl 0.4 Mg/Ml Vial IV PUSH Q2M PRN Opiate Reversal Ondansetron HCl 4 mg 11/02/23 12:59 11/02/23 13:45 Ondansetron Inj 4 Mg/2 Ml Vial IV PUSH 4 mg Q6H PRN Administration Nausea And Vomiting Polyethylene Glycol 17 gm 11/04/23 09:45 11/05/23 08:05 Polyethylene Glycol 3350 17 Gm Powd.Pack PO 17 gm QAM JUANJO Administration Rosuvastatin Calcium 10 mg 11/03/23 09:00 11/05/23 08:05 Rosuvastatin 10 Mg Tablet PO 10 mg DAILY JUANJO Administration Radiology Results: ITS Impressions Chest X-Ray 11/04/23 14:04 IMPRESSION: 1. Small left pleural effusion. 2. Airspace opacities in the lower lung zones, likely atelectasis. Labs Labs: Laboratory Results - last 24 hr 11/04/23 11/04/23 11/05/23 14:06 14:07 05:30 WBC 8.6 RBC 4.57 L Hgb 13.2 L Hct 39.6 L MCV 86.7 MCH 28.9 MCHC 33.3 RDW 14.4 Plt Count 152 MPV 10.5 H Immature Gran % (Auto) 0.6 H Neut % (Auto) 67.5 Lymph % (Auto) 17.6 L [place] % (Auto) 11.3 H Eos % (Auto) 2.6 Baso % (Auto) 0.4 Lymph # (Auto) 1.51 [place] # (Auto) 1.0 H Eos # (Auto) 0.2 Baso # (Auto) 0.0 Abs Immat Gran (auto) 0.05 H Absolute Neuts (auto) 5.8 Absolute Nucleated RBC 0.000 Nucleated RBC % 0.0 Sodium 128 L Potassium 3.8 Chloride 103 Carbon Dioxide 24 Anion Gap 1 L BUN 17 Creatinine 2.30 H Estim Creat Clear Calc 23 Estimated GFR 27 L Glucose 90 Calcium 8.3 L Total Bilirubin 2.6 H AST 30 ALT 11 Alkaline Phosphatase 50 Total Creatine Kinase 332 H Total Protein 6.0 L Albumin 3.0 L Urine Color Yellow Urine Appearance Clear Urine pH 6.5 Ur Specific [place] 1.006 Urine Protein Trace Urine Glucose (UA) Negative Urine Ketones Negative Ur Blood (Man) 2+ H Urine Nitrate Negative Urine Bilirubin Negative Urine Urobilinogen 0.2 Leukocyte Esterase Rfl Trace H Urine RBC 3-5 H Urine WBC 0-5 Ur Squamous Epith Cells None seen Urine Bacteria None seen Urine Casts 0-2 Urine Eosinophils None seen U Random Total Protein 48 48 Ur Random Sodium 26 Ur Random Urea 243 Urine Creatinine 63.1 63.3 Protein/Creat Ratio 2 0.76 H
--- NOTE | 2023-11-05 09:33 | P.PNNP_ITS ---
Progress Note: A&P Assessment and Plan (1) Acute kidney injury: Code(s): N17.9 - Acute kidney failure, unspecified Status: Acute Assessment and Plan: * baseline creatinine seems to run ~ 1.1 - 1.4mg/dl * up to 1.9 day before yesterday, up to 2.2mg/dl yesterday, and now 2.3mg/dl * hence, rate of rise appears to be slowing... * continues to make good urine output * etiology not clear...evaluation to date: * no apparent issues with hypotension post procedure or during operation * UA not suggestive of infection * CPK normal * urine eosinophils negative * urine electrolytes look prerenal * renal ultrasound pending * holding SATISH-I at this time * follow trend of repeat labs and UOP (2) Hyponatremia: Code(s): E87.1 - Hypo-osmolality and hyponatremia Status: Acute Assessment and Plan: * noted by labs done this AM * possible causes: * acute kidney injury * pain * pain medications/narcotics * check TSH, cortisol, SPEP and UPEP along with serum/urine osmolality * follow trend of sodium (3) Hypertension: Code(s): I10 - Essential (primary) hypertension Status: Chronic Assessment and Plan: * reasonable control at this time * holding SATISH-I due to #1 * may need another temporary BP agent (i.e. 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 Subjective Date/time seen: 11/05/23 9:33 Interval history: Follow-up for acute kidney injury/acute renal failure. Renal function/creatinine a tad higher by labs done today; continues to make reasonably urine output; noted sodium a bit low by AM labs as well; tolerated trial of IVFs overnight and this AM; no apparent distress noted at the time of my visit; eating and drinking fairly well. Exam Narrative: General: elderly but WD/WN male in NAD Heart: normal S1 and S2; no rub Lungs: clear to auscultation Abdomen: soft, nontender, nondistended, positive bowel sounds; incision c/d/i Extremities: no cyanosis or clubbing; no edema Skin: warm and dry Objective Data Vital Signs Vital Signs: Vital Signs Temp Pulse Resp BP Pulse Ox O2 Del Method 11/05/23 08:05 Room Air 11/05/23 06:10 97.4 F L 71 16 154/83 H 91 11/05/23 00:40 98.0 F 86 16 115/62 94 11/04/23 20:00 Room Air 11/04/23 20:00 98.2 F 84 16 150/84 H 94 11/04/23 16:00 98.3 F 74 18 124/68 96 Intake/Output Intake/Output: Intake & Output 11/02/23 11/03/23 11/04/23 11/05/23 23:59 23:59 23:59 23:59 Intake Total 1046.7 1760 3403.7 1100 Output Total 775 1750 1525 Balance 1046.7 985 1653.7 -425 Meds/Results Medications: Active Medications Generic Name Dose Route Start Last Admin Trade Name Freq PRN Reason Stop Dose Admin Hydrocodone Bitart/Acetaminophen 1 tab 11/03/23 05:00 11/04/23 21:40 Hydrocodone/Acetaminophen (*Crx) 5-325 Mg Tablet PO 1 tab Q4H PRN Administration Pain Rated 1-3 Hydrocodone Bitart/Acetaminophen 2 tab 11/03/23 05:00 11/04/23 06:36 Hydrocodone/Acetaminophen (*Crx) 5-325 Mg Tablet PO 2 tab Q4H PRN Administration Pain Rated 4-6 Benzocaine 1 lozenge 11/02/23 18:04 11/02/23 18:26 Benzocaine/Menthol (*Bkc) 18 Ea Lozenge PO 1 lozenge PRN PRN Administration Sore Throat Docusate Sodium 100 mg 11/02/23 17:00 11/05/23 08:05 Docusate Sodium 100 Mg Capsule PO 100 mg BID JUANJO Administration Enalapril Maleate 20 mg 11/03/23 09:00 11/04/23 09:05 Enalapril Maleate 10 Mg Tablet PO 20 mg DAILY JUANJO Administration Hydromorphone HCl 0.5 mg 11/02/23 12:59 11/02/23 22:23 Hydromorphone Hcl Inj (*Crx) 1 Mg/Ml Syr IV PUSH 0.5 mg Q4H PRN Administration Pain Rated 7-10 Sodium Chloride 1,000 mls @ 100 mls/hr 11/02/23 12:59 11/02/23 20:31 Normal Saline Iv IV CONT 0 mls/hr .Q10H JUANJO Infusion Levothyroxine Sodium 75 mcg 11/03/23 06:30 11/05/23 05:44 Levothyroxine Sodium 75 Mcg Tablet PO 75 mcg DAILY@0630 JUANJO Administration Morphine Sulfate 1 mg 11/02/23 12:59 Morphine Sulfate (*Crx) 2 Mg/Ml Inj IV PUSH Q2H PRN Pain Rated 4-6 Naloxone HCl 0.1 mg 11/02/23 12:59 Naloxone Hcl 0.4 Mg/Ml Vial IV PUSH Q2M PRN Opiate Reversal Ondansetron HCl 4 mg 11/02/23 12:59 11/02/23 13:45 Ondansetron Inj 4 Mg/2 Ml Vial IV PUSH 4 mg Q6H PRN Administration Nausea And Vomiting Polyethylene Glycol 17 gm 11/04/23 09:45 11/05/23 08:05 Polyethylene Glycol 3350 17 Gm Powd.Pack PO 17 gm QAM JUANJO Administration Rosuvastatin Calcium 10 mg 11/03/23 09:00 11/05/23 08:05 Rosuvastatin 10 Mg Tablet PO 10 mg DAILY JUANJO Administration Radiology Results: ITS Impressions Chest X-Ray 11/04/23 14:04 IMPRESSION: 1. Small left pleural effusion. 2. Airspace opacities in the lower lung zones, likely atelectasis. Labs Labs: Laboratory Tests 11/05/23 05:30 11/05/23 05:30 Calcium 8.3 L Total Bilirubin 2.6 H AST 30 ALT 11 Alkaline Phosphatase 50 Total Creatine Kinase 332 H Total Protein 6.0 L Albumin 3.0 L
--- NOTE | 2023-11-05 12:12 | PC.NURSE ---
Pt is A&O4 male who participates and contributes in plan of care. Pt reports pain has gotten better and incisions have started itching. Pt reports that he is passing gas, but still no BM. Pt has been given miralax and colace to help stimulate BM. Pt ambulating well and walking around unit. Pt will continue to be monitored. Urology in with pt.
--- NOTE | 2023-11-05 12:20 | P.CONIM_ITS ---
Assessment and Plan Assessment and plan (1) Left renal mass: Code(s): N28.89 - Other specified disorders of kidney and ureter Status: Acute (2) Acute kidney injury: Code(s): N17.9 - Acute kidney failure, unspecified Status: Acute (3) Constipation: Code(s): K59.00 - Constipation, unspecified Status: Acute (4) Hyponatremia: Code(s): E87.1 - Hypo-osmolality and hyponatremia Status: Acute Plan Helder Concepcion is a 78 year old male presented for elective left nephrectomy which done on 11/02/2023. Post surgery his creatinine bumped up to 2.2. Nephrology has been consulted. He has also been complaining of constipation. He has been started on stool softeners however has not had any bowel movement yet. Because of abdominal discomfort because of the surgery. Overall feeling better compared to yesterday per hospice consulted for pleural effusion is sodium level dropped down to 127 today. Chest x-ray showed some small pleural effusion with airspace opacities. He denies any cough or shortness of breath. Left pleural effusion and airspace opacity likely due to atelectasis due to recent surgery left nephrectomy. Pleural effusion likely reactive related to eat. I do not suspect underlying pneumonia. His white cell count is also normal he needs to continue on spirometry which I recommended. HUGH on CKD stage 3 baseline creatinine 0.1. Bumped up to 2.3. 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 Approved on hold. Good urine output. Continue to monitor renal parameters. Hyponatremia likely due to HUGH which is being managed and monitored by Nephrol ogy team. Enalapril on hold. Urinalysis with 3-5 RBC no signs of infection. Urine sodium is 26. Constipation already on bowel regimen Hypothyroidism on levothyroxine Hyperlipidemia on rosuvastatin DVT prophylaxis SCDs Code status full code HPI Date of Consult Consult date: 11/05/23 Requesting Physician: Jairon Ivory MD Primary Care Provider: Jericho Dorsey MD Consult Narrative Narrative: Helder Concepcion is a 78 year old male presented for elective left nephrectomy which done on 11/02/2023. Post surgery his creatinine bumped up to 2.2. Nephrology has been consulted. He has also been complaining of constipation. He has been started on stool softeners however has not had any bowel movement yet. Because of abdominal discomfort because of the surgery. Overall feeling better compared to yesterday per hospice consulted for pleural effusion is sodium level dropped down to 127 today. Chest x-ray showed some small pleural effusion with airspace opacities. He denies any cough or shortness of breath. Review of Systems Review of Systems: - CONSTITUTIONAL: Denies weight loss, fe ricky and chills. - HEENT: Denies changes in vision and he aring - RESPIRATORY: Denies SOB and cough. - CV: Denies palpitations and CP. - GI: Reports abdominal pain, denies na usea, vomiting and diarrhea. Constipation - : Denies dysuria and urinary frequen cy. - MSK: Denies myalgia and joint pain. - SKIN: Denies rash and pruritus. - NEUROLOGICAL: Denies headache and sync ope. - PSYCHIATRIC: Denies recent changes in mood. Denies anxiety and depression. [facility] Past Medical History Medical History (Updated 11/05/23 @ 10:13 by Pasha Parsons MD) Benign hypertension with chronic kidney disease GERD (gastroesophageal reflux disease) Hyperlipidemia Hypothyroidism Social History Social History Smoking status: Never smoker Alcohol intake: current Drinks per week: 0 Substance use: never Do You Feel Safe in your Home?: Yes Lack of Transportation: No Lack of Food: Never True Current Housing: I Have Housing Concerned About Future Housing: No Difficulty Paying Gas/Electric Bills: No Difficulty Paying for Meds: No Currently Unemployed: No Education: Decline to Answer Difficulty w/ Childcare or Family Care: No Living arrangements: alone Spiritual care concerns: No Meds Home Medications and Allergies Home Medications Medication Instructions Recorded Confirmed Type Baby Aspirin 81 mg PO DAILY 10/26/23 10/26/23 History enalapril maleate 20 mg tablet 20 mg PO DAILY 10/26/23 10/26/23 History levothyroxine 75 mcg tablet 75 mcg PO DAILY 10/26/23 11/02/23 History omeprazole 40 mg capsule,delayed 40 mg PO DAILY 10/26/23 10/26/23 History release rosuvastatin 10 mg tablet 10 mg PO DAILY 10/26/23 10/26/23 History Allergies Allergy/AdvReac Type Severity Reaction Status Date / Time cyclobenzaprine AdvReac Intermediate Diarrhea Verified 11/02/23 07:43 Vital Signs Vital Signs - 24 hr 11/04/23 16:00 11/04/23 20:00 11/04/23 20:00 Temperature 98.3 F 98.2 F Pulse Rate 74 84 Respiratory Rate 18 16 Blood Pressure 124/68 150/84 H Pulse Oximetry 96 94 Oxygen Delivery Room Air 11/05/23 00:40 11/05/23 06:10 11/05/23 08:05 Temperature 98.0 F 97.4 F L Pulse Rate 86 71 Respiratory Rate 16 16 Blood Pressure 115/62 154/83 H Pulse Oximetry 94 91 Oxygen Delivery Room Air Exam Narrative: General: Awake, alert, comfortable, no acute distress HEENT: Normocephalic, atraumatic, sclerae anicteric Respiratory: Normal respiratory effort, no accessory muscle use Abdomen: Nondistended, soft, nontender incision site clean and dry Skin: Normal coloration, warm and dry Neurologic: No focal neuro deficits noted Psychiatric: Appropriate mood and affect, judgment and insight intact Results Labs 11/05/23 05:30 11/05/23 05:30 Labs: Short CBC 11/05/23 Range/Units 05:30 WBC 8.6 (4.5-10.0) K/mm3 Hgb 13.2 L (14.0-18.0) g/dL Hct 39.6 L (42.0-52.0) % Plt Count 152 (150-375) k/mm3 BMP 11/05/23 05:30 Sodium 128 L Potassium 3.8 Chloride 103 Carbon Dioxide 24 BUN 17 Creatinine 2.30 H Glucose 90 Calcium 8.3 L Cardiac Enzymes 11/05/23 Range/Units 05:30 Total Creatine Kinase 332 H (55-170) U/L Liver Function 11/05/23 Range/Units 05:30 Total Bilirubin 2.6 H (0.2-1.3) mg/dL AST 30 (17-59) U/L ALT 11 (6-50) U/L Alkaline Phosphatase 50 (38-126) U/L Albumin 3.0 L (3.5-5.1) g/dL Urine 11/04/23 Range/Units 14:07 Urine Color Yellow (Yellow) Urine Appearance Clear (Clear) Urine pH 6.5 (5.0-9.0) Ur Specific [place] 1.006 (1.001-1.035) Urine Protein Trace (Negative) mg/dL Urine Glucose (UA) Negative (Negative) mg/dL
[2023-11-05 14:00] VITALS: BP 146/91; PULSE 85; RESP 20; TEMP 36.9; O2SAT 95
[2023-11-05] MEDS: BISACODYL 10 MG SUPPOSITORY RECTAL (15:23)
[2023-11-05 20:52] VITALS: BP 164/85; PULSE 80; RESP 16; TEMP 37.4; O2SAT 94
[2023-11-06 01:03] VITALS: BP 140/77; PULSE 83; RESP 16; TEMP 37.5; O2SAT 94
[2023-11-06 05:46] LABS: Basophils Percent Auto 0.5 % (0.2-1.2); Eosinophils Absolute Auto 0.3 K/mm3 (0-0.3); Eosinophils Percent Auto 3.4 % (0-4.4); Hematocrit 39.9 % (42.0-52.0); Hemoglobin 13.5 g/dL (14.0-18.0); Immature Granulocyte Absolute 0.07 K/mm3 (0.00-0.031); Immature Granulocyte Percent A 0.8 % (0-0.5); Lymphocytes Absolute Auto 1.35 K/mm3 (0.9-3.2); Lymphocytes Percent Auto 16.4 % (18.3-44.2); Mean Corpuscular HGB Conc 33.8 g/dl (32-36); Mean Corpuscular Hemoglobin 28.8 pg (26-34); Mean Corpuscular Volume 85.3 fl (80-100); Mean Platelet Volume 10.4 fl (7.4-10.4); Monocytes Percent Auto 12.1 % (2.6-8.5); Neutrophils Absolute Auto 5.5 K/mm3 (1.3-6.7); Neutrophils Percent Auto 66.8 % (45.5-73.1); Platelet Count Result 176 k/mm3 (150-375); Red Blood Count 4.68 M/mm3 (4.6-6.20); Red Cell Distribution Width 14.2 % (11.5-14.5); White Blood Count 8.3 K/mm3 (4.5-10.0)
[2023-11-06 05:58] LABS: Alanine Aminotransferase 15 U/L (6-50); Albumin Level 3.2 g/dL (3.5-5.1); Alkaline Phosphatase 51 U/L (38-126); Anion Gap 8 mmol/L (4-12); Aspartate Amino Transferase 30 U/L (17-59); Bilirubin,Total 2.3 mg/dL (0.2-1.3); Blood Urea Nitrogen 17 mg/dL (9-20); Calcium 8.6 mg/dL (8.4-10.2); Carbon Dioxide 23 mmol/L (22-30); Chloride 103 mmol/L (98-107); Estimated CRCL calculation 26 ml/min; Estimated Glomerular Filt Rate 31; Glucose 101 mg/dL (65-110); Potassium 3.7 mmol/L (3.4-5.0); Sodium 134 mmol/L (137-145)
[2023-11-06 06:00] VITALS: BP 155/90; PULSE 70; RESP 16; TEMP 37.4; O2SAT 94
[2023-11-06 06:38] LABS: Thyroid Stimulating Hormone Reflex 0.801 uIU/mL (0.465-4.68)
[2023-11-06] MEDS: LEVOTHYROXINE SODIUM 75 MCG TABLET PO (06:44)
[2023-11-06 08:00] VITALS: BP 148/85; PULSE 70; RESP 16; TEMP 36.8; O2SAT 96
[2023-11-06] MEDS: DOCUSATE SODIUM 100 MG CAPSULE PO ×2 (10:20→17:56)
[2023-11-06] MEDS: ROSUVASTATIN 10 MG TABLET PO (10:20)
[2023-11-06 12:00] VITALS: BP 148/86; PULSE 68; RESP 16; TEMP 37.1; O2SAT 97
--- NOTE | 2023-11-06 13:36 | P.PNNP_ITS ---
Progress Note: A&P Assessment and Plan (1) Acute kidney injury: Code(s): N17.9 - Acute kidney failure, unspecified Status: Acute Assessment and Plan: * baseline creatinine seems to run ~ 1.1 - 1.4mg/dl * up to 1.9 day before yesterday, up to 2.2mg/dl then 2.3mg/dl and now down to 2.1 * continues to make good urine output * etiology not clear...evaluation to date: * no apparent issues with hypotension post procedure or during operation * UA not suggestive of infection * CPK normal * urine eosinophils negative * urine electrolytes look prerenal * renal ultrasound pending * it is unclear how much better that the creatinine will get. * It would be nice to see his creatinine tomorrow morning to make sure that it is getting better or at least the same. * Will check a renal panel in the morning * long discussion with the patient about how much better his kidney function will get since he had 1 kidney removed. We do not know what his new baseline is going to be. (2) Hyponatremia: Code(s): E87.1 - Hypo-osmolality and hyponatremia Status: Acute Assessment and Plan: * noted by labs done this AM * possible causes: * acute kidney injury * pain * pain medications/narcotics * TSH is okay. * cortisol is only 11.2. * Sodium level is better so if okay tomorrow then we do not need to do the Cortrosyn stim. * SPEP and UPEP along with serum/urine osmolality * If the sodium is persistently low then we will need to do a Cortrosyn stim test bubbly as an outpatient. (3) Hypertension: Code(s): I10 - Essential (primary) hypertension Status: Chronic Assessment and Plan: * Systolic running between 140 and 160. 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 He is feeling better. no shortness of breath. He is not hungry. He is very constipated Exam Narrative: General: elderly but WD/WN male in NAD Heart: normal S1 and S2; no rub or gallop Lungs: clear to auscultation Abdomen: soft, nontender, nondistended, positive bowel sounds; incision c/d/i Extremities: no cyanosis or clubbing; no edema Skin: no rash or subcu not Objective Data Vital Signs Vital Signs: Vital Signs - 24 hr 11/05/23 14:00 11/05/23 20:52 11/06/23 01:03 Temperature 98.4 F 99.4 F 99.5 F Pulse Rate 85 80 83 Respiratory Rate 20 16 16 Blood Pressure 146/91 H 164/85 H 140/77 Pulse Oximetry 95 94 94 11/06/23 06:00 11/06/23 08:00 11/06/23 12:00 Temperature 99.3 F 98.2 F 98.7 F Pulse Rate 70 70 68 Respiratory Rate 16 16 16 Blood Pressure 155/90 H 148/85 H 148/86 H Pulse Oximetry 94 96 97 Intake/Output Intake/Output: Intake & Output 11/03/23 11/04/23 11/05/23 11/06/23 23:59 23:59 23:59 23:59 Intake Total 1760 3403.7 1340 0 Output Total 775 1750 1725 400 Balance 985 1653.7 -385 -400 Meds/Results Medications: Active Medications Generic Name Dose Route Start Last Admin Trade Name Freq PRN Reason Stop Dose Admin Hydrocodone Bitart/Acetaminophen 1 tab 11/03/23 05:00 11/04/23 21:40 Hydrocodone/Acetaminophen (*Crx) 5-325 Mg Tablet PO 1 tab Q4H PRN Administration Pain Rated 1-3 Hydrocodone Bitart/Acetaminophen 2 tab 11/03/23 05:00 11/04/23 06:36 Hydrocodone/Acetaminophen (*Crx) 5-325 Mg Tablet PO 2 tab Q4H PRN Administration Pain Rated 4-6 Benzocaine 1 lozenge 11/02/23 18:04 11/02/23 18:26 Benzocaine/Menthol (*Bkc) 18 Ea Lozenge PO 1 lozenge PRN PRN Administration Sore Throat Docusate Sodium 100 mg 11/02/23 17:00 11/06/23 10:20 Docusate Sodium 100 Mg Capsule PO 100 mg BID JUANJO Administration Enalapril Maleate 20 mg 11/03/23 09:00 11/04/23 09:05 Enalapril Maleate 10 Mg Tablet PO 20 mg DAILY JUANJO Administration Hydromorphone HCl 0.5 mg 11/02/23 12:59 11/02/23 22:23 Hydromorphone Hcl Inj (*Crx) 1 Mg/Ml Syr IV PUSH 0.5 mg Q4H PRN Administration Pain Rated 7-10 Sodium Chloride 1,000 mls @ 100 mls/hr 11/02/23 12:59 11/02/23 20:31 Normal Saline Iv IV CONT 0 mls/hr .Q10H JUANJO Infusion Levothyroxine Sodium 75 mcg 11/03/23 06:30 11/06/23 06:44 Levothyroxine Sodium 75 Mcg Tablet PO 75 mcg DAILY@0630 JUANJO Administration Morphine Sulfate 1 mg 11/02/23 12:59 Morphine Sulfate (*Crx) 2 Mg/Ml Inj IV PUSH Q2H PRN Pain Rated 4-6 Naloxone HCl 0.1 mg 11/02/23 12:59 Naloxone Hcl 0.4 Mg/Ml Vial IV PUSH Q2M PRN Opiate Reversal Ondansetron HCl 4 mg 11/02/23 12:59 11/02/23 13:45 Ondansetron Inj 4 Mg/2 Ml Vial IV PUSH 4 mg Q6H PRN Administration Nausea And Vomiting Polyethylene Glycol 17 gm 11/04/23 09:45 11/05/23 08:05 Polyethylene Glycol 3350 17 Gm Powd.Pack PO 17 gm QAM JUANJO Administration Rosuvastatin Calcium 10 mg 11/03/23 09:00 11/06/23 10:20 Rosuvastatin 10 Mg Tablet PO 10 mg DAILY JUANJO Administration Radiology Results: ITS Impressions Chest X-Ray 11/04/23 14:04 IMPRESSION: 1. Small left pleural effusion. 2. Airspace opacities in the lower lung zones, likely atelectasis. Renal Ultrasound 11/06/23 00:40 IMPRESSION: No abnormality seen in the right kidney. Labs Labs: Laboratory Results - last 24 hr 11/06/23 05:31 WBC 8.3 RBC 4.68 Hgb 13.5 L Hct 39.9 L MCV 85.3 MCH 28.8 MCHC 33.8 RDW 14.2 Plt Count 176 MPV 10.4 Immature Gran % (Auto) 0.8 H Neut % (Auto) 66.8 Lymph % (Auto) 16.4 L [place] % (Auto) 12.1 H Eos % (Auto) 3.4 Baso % (Auto) 0.5 Lymph # (Auto) 1.35 [place] # (Auto) 1.0 H Eos # (Auto) 0.3 Baso # (Auto) 0.0 Abs Immat Gran (auto) 0.07 H Absolute Neuts (auto) 5.5 Absolute Nucleated RBC 0.000 Nucleated RBC % 0.0 Sodium 134 L Potassium 3.7 Chloride 103 Carbon Dioxide 23 Anion Gap 8 BUN 17 Creatinine 2.10 H Estim Creat Clear Calc 26 Estimated GFR 31 L Glucose 101 Calcium 8.6 Magnesium 2.0 Total Bilirubin 2.3 H AST 30 ALT 15 Alkaline Phosphatase 51 Total Protein 6.0 L Albumin 3.2 L TSH (Reflex) 0.801 Random Cortisol 11.20
--- NOTE | 2023-11-06 13:48 | P.PNIM_ITS ---
Progress Note: A&P Assessment and Plan (1) Left renal mass: Code(s): N28.89 - Other specified disorders of kidney and ureter Status: Acute (2) Acute kidney injury: Code(s): N17.9 - Acute kidney failure, unspecified Status: Acute (3) Constipation: Code(s): K59.00 - Constipation, unspecified Status: Acute (4) Hyponatremia: Code(s): E87.1 - Hypo-osmolality and hyponatremia Status: Acute Plan Helder Concepcion is a 78 year old male presented for elective left nephrectomy which done on 11/02/2023. Post surgery his creatinine bumped up to 2.2. Nephrology has been consulted. He has also been complaining of constipation. He has been started on stool softeners however has not had any bowel movement yet. Because of abdominal discomfort because of the surgery. Overall feeling better compared to yesterday per hospice consulted for pleural effusion is sodium level dropped down to 127 today. Chest x-ray showed some small pleural effusion with airspace opacities. He denies any cough or shortness of breath. Left pleural effusion and airspace opacity likely due to atelectasis due to recent surgery left nephrectomy. Pleural effusion likely reactive related to eat. I do not suspect underlying pneumonia. His white cell count is also normal he needs to continue on spirometry which I recommended. HUGH on CKD stage 3 baseline creatinine 0.1. Bumped up to 2.3. 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 Approved on hold. Good urine output. Continue to monitor renal parameters. Creatinine improving Hyponatremia likely due to HUGH which is being managed and monitored by Nephrology team. Enalapril on hold. Urinalysis with 3-5 RBC no signs of infection. Urine sodium is 26. Hyponatremia is Constipation already on bowel regimen. Will give enema today Hypothyroidism on levothyroxine Hyperlipidemia on rosuvastatin DVT prophylaxis SCDs Code status full code Subjective Date/time seen: 11/06/23 13:48 Interval history: No overnight events. Abdominal soreness present had a very small bowel movement today. No nausea vomiting Review of Systems Review of Systems: All systems reviewed & are unremarkable except as noted in HPI and below Exam Narrative: General: Awake, alert, comfortable, no acute distress HEENT: Normocephalic, atraumatic, sclerae anicteric Respiratory: Normal respiratory effort, no accessory muscle use Abdomen: Nondistended, soft, nontender incision site clean and dry Skin: Normal coloration, warm and dry Neurologic: No focal neuro deficits noted Psychiatric: Appropriate mood and affect, judgment and insight intact Objective Data Vital Signs Vital Signs: Vital Signs - 24 hr 11/05/23 14:00 11/05/23 20:52 11/06/23 01:03 Temperature 98.4 F 99.4 F 99.5 F Pulse Rate 85 80 83 Respiratory Rate 20 16 16 Blood Pressure 146/91 H 164/85 H 140/77 Pulse Oximetry 95 94 94 11/06/23 06:00 11/06/23 08:00 11/06/23 12:00 Temperature 99.3 F 98.2 F 98.7 F Pulse Rate 70 70 68 Respiratory Rate 16 16 16 Blood Pressure 155/90 H 148/85 H 148/86 H Pulse Oximetry 94 96 97 Intake/Output Intake/Output: Intake & Output 11/03/23 11/04/23 11/05/23 11/06/23 23:59 23:59 23:59 23:59 Intake Total 1760 3403.7 1340 0 Output Total 775 1750 1725 400 Balance 985 1653.7 -385 -400 Meds/Results Medications: Active Medications Generic Name Dose Route Start Last Admin Trade Name Freq PRN Reason Stop Dose Admin Hydrocodone Bitart/Acetaminophen 1 tab 11/03/23 05:00 11/04/23 21:40 Hydrocodone/Acetaminophen (*Crx) 5-325 Mg Tablet PO 1 tab Q4H PRN Administration Pain Rated 1-3 Hydrocodone Bitart/Acetaminophen 2 tab 11/03/23 05:00 11/04/23 06:36 Hydrocodone/Acetaminophen (*Crx) 5-325 Mg Tablet PO 2 tab Q4H PRN Administration Pain Rated 4-6 Benzocaine 1 lozenge 11/02/23 18:04 11/02/23 18:26 Benzocaine/Menthol (*Bkc) 18 Ea Lozenge PO 1 lozenge PRN PRN Administration Sore Throat Docusate Sodium 100 mg 11/02/23 17:00 11/06/23 10:20 Docusate Sodium 100 Mg Capsule PO 100 mg BID JUANJO Administration Enalapril Maleate 20 mg 11/03/23 09:00 11/04/23 09:05 Enalapril Maleate 10 Mg Tablet PO 20 mg DAILY JUANJO Administration Hydromorphone HCl 0.5 mg 11/02/23 12:59 11/02/23 22:23 Hydromorphone Hcl Inj (*Crx) 1 Mg/Ml Syr IV PUSH 0.5 mg Q4H PRN Administration Pain Rated 7-10 Sodium Chloride 1,000 mls @ 100 mls/hr 11/02/23 12:59 11/02/23 20:31 Normal Saline Iv IV CONT 0 mls/hr .Q10H JUANJO Infusion Levothyroxine Sodium 75 mcg 11/03/23 06:30 11/06/23 06:44 Levothyroxine Sodium 75 Mcg Tablet PO 75 mcg DAILY@0630 JUANJO Administration Morphine Sulfate 1 mg 11/02/23 12:59 Morphine Sulfate (*Crx) 2 Mg/Ml Inj IV PUSH Q2H PRN Pain Rated 4-6 Naloxone HCl 0.1 mg 11/02/23 12:59 Naloxone Hcl 0.4 Mg/Ml Vial IV PUSH Q2M PRN Opiate Reversal Ondansetron HCl 4 mg 11/02/23 12:59 11/02/23 13:45 Ondansetron Inj 4 Mg/2 Ml Vial IV PUSH 4 mg Q6H PRN Administration Nausea And Vomiting Polyethylene Glycol 17 gm 11/04/23 09:45 11/05/23 08:05 Polyethylene Glycol 3350 17 Gm Powd.Pack PO 17 gm QAM JUANJO Administration Rosuvastatin Calcium 10 mg 11/03/23 09:00 11/06/23 10:20 Rosuvastatin 10 Mg Tablet PO 10 mg DAILY JUANJO Administration Radiology Results: ITS Impressions Chest X-Ray 11/04/23 14:04 IMPRESSION: 1. Small left pleural effusion. 2. Airspace opacities in the lower lung zones, likely atelectasis. Renal Ultrasound 11/06/23 00:40 IMPRESSION: No abnormality seen in the right kidney. Labs Labs: Laboratory Results - last 24 hr 11/06/23 05:31 WBC 8.3 RBC 4.68 Hgb 13.5 L Hct 39.9 L MCV 85.3 MCH 28.8 MCHC 33.8 RDW 14.2 Plt Count 176 MPV 10.4 Immature Gran % (Auto) 0.8 H Neut % (Auto) 66.8 Lymph % (Auto) 16.4 L [place] % (Auto) 12.1 H Eos % (Auto) 3.4 Baso % (Auto) 0.5 Lymph # (Auto) 1.35 [place] # (Auto) 1.0 H Eos # (Auto) 0.3 Baso # (Auto) 0.0 Abs Immat Gran (auto) 0.07 H Absolute Neuts (auto) 5.5 Absolute Nucleated RBC 0.000 Nucleated RBC % 0.0 Sodium 134 L Potassium 3.7 Chloride 103 Carbon Dioxide 23 Anion Gap 8 BUN 17 Creatinine 2.10 H Estim Creat Clear Calc 26 Estimated GFR 31 L Glucose 101 Calcium 8.6 Magnesium 2.0 Total Bilirubin 2.3 H AST 30 ALT 15 Alkaline Phosphatase 51 Total Protein 6.0 L Albumin 3.2 L TSH (Reflex) 0.801 Random Cortisol 11.20
--- NOTE | 2023-11-06 14:29 | P.PNUR_ITS ---
Progress Note: A&P Assessment and Plan (1) Left renal mass: Code(s): N28.89 - Other specified disorders of kidney and ureter Status: Acute Assessment and Plan: Doing well pathology reviewed Likely home in am (2) Acute kidney injury: Code(s): N17.9 - Acute kidney failure, unspecified Status: Acute Assessment and Plan: stable and recheck tomorrow am Nephrology following Likely home in am if renal function stable (3) Constipation: Code(s): K59.00 - Constipation, unspecified Status: Acute Assessment and Plan: Passing flatus--no nausea--regular diet bowel regimen noted (4) Hyponatremia: Code(s): E87.1 - Hypo-osmolality and hyponatremia Status: Acute Assessment and Plan: per nephrology Plan SP hand assi Subjective Subjective Date/Time Seen: 11/06/23 14:29 Exam Narrative: Incision intact abdomen soft Const: General: cooperative, healthy appearing and comfortable Eyes: General: appearance normal, both eyes and all related structures Chest: Chest palpation & inspection: normal inspection of the chest Resp: Effort & Inspection: normal respiratory effort GI: Inspection: normal to inspection GI Palp: Yes abdominal tenderness (minimal at incision) Objective Data Vital Signs Vital Signs: Vital Signs - 24 hr 11/05/23 20:52 11/06/23 01:03 11/06/23 06:00 Temperature 37.4 C 37.5 C 37.4 C Pulse Rate 80 83 70 Respiratory Rate 16 16 16 Blood Pressure 164/85 H 140/77 155/90 H Pulse Oximetry 94 94 94 11/06/23 08:00 11/06/23 12:00 Temperature 36.8 C 37.1 C Pulse Rate 70 68 Respiratory Rate 16 16 Blood Pressure 148/85 H 148/86 H Pulse Oximetry 96 97 Intake/Output Intake/Output: Intake & Output 11/03/23 11/04/23 11/05/23 11/06/23 23:59 23:59 23:59 23:59 Intake Total 1760 3403.7 1340 0 Output Total 775 1750 1725 400 Balance 985 1653.7 -385 400 Meds/Results Medications: Active Medications Generic Name Dose Route Start Last Admin Trade Name Freq PRN Reason Stop Dose Admin Hydrocodone Bitart/Acetaminophen 1 tab 11/03/23 05:00 11/04/23 21:40 Hydrocodone/Acetaminophen (*Crx) 5-325 Mg Tablet PO 1 tab Q4H PRN Administration Pain Rated 1-3 Hydrocodone Bitart/Acetaminophen 2 tab 11/03/23 05:00 11/04/23 06:36 Hydrocodone/Acetaminophen (*Crx) 5-325 Mg Tablet PO 2 tab Q4H PRN Administration Pain Rated 4-6 Benzocaine 1 lozenge 11/02/23 18:04 11/02/23 18:26 Benzocaine/Menthol (*Bkc) 18 Ea Lozenge PO 1 lozenge PRN PRN Administration Sore Throat Docusate Sodium 100 mg 11/02/23 17:00 11/06/23 10:20 Docusate Sodium 100 Mg Capsule PO 100 mg BID JUANJO Administration Enalapril Maleate 20 mg 11/03/23 09:00 11/04/23 09:05 Enalapril Maleate 10 Mg Tablet PO 20 mg DAILY JUANJO Administration Hydromorphone HCl 0.5 mg 11/02/23 12:59 11/02/23 22:23 Hydromorphone Hcl Inj (*Crx) 1 Mg/Ml Syr IV PUSH 0.5 mg Q4H PRN Administration Pain Rated 7-10 Sodium Chloride 1,000 mls @ 100 mls/hr 11/02/23 12:59 11/02/23 20:31 Normal Saline Iv IV CONT 0 mls/hr .Q10H JUANJO Infusion Levothyroxine Sodium 75 mcg 11/03/23 06:30 11/06/23 06:44 Levothyroxine Sodium 75 Mcg Tablet PO 75 mcg DAILY@0630 JUANJO Administration Morphine Sulfate 1 mg 11/02/23 12:59 Morphine Sulfate (*Crx) 2 Mg/Ml Inj IV PUSH Q2H PRN Pain Rated 4-6 Naloxone HCl 0.1 mg 11/02/23 12:59 Naloxone Hcl 0.4 Mg/Ml Vial IV PUSH Q2M PRN Opiate Reversal Ondansetron HCl 4 mg 11/02/23 12:59 11/02/23 13:45 Ondansetron Inj 4 Mg/2 Ml Vial IV PUSH 4 mg Q6H PRN Administration Nausea And Vomiting Polyethylene Glycol 17 gm 11/04/23 09:45 11/05/23 08:05 Polyethylene Glycol 3350 17 Gm Powd.Pack PO 17 gm QAM JUANJO Administration Rosuvastatin Calcium 10 mg 11/03/23 09:00 11/06/23 10:20 Rosuvastatin 10 Mg Tablet PO 10 mg DAILY JUANJO Administration Radiology Results: ITS Impressions Chest X-Ray 11/04/23 14:04 IMPRESSION: 1. Small left pleural effusion. 2. Airspace opacities in the lower lung zones, likely atelectasis. Renal Ultrasound 11/06/23 00:40 IMPRESSION: No abnormality seen in the right kidney. Labs Labs: Laboratory Results - last 24 hr 11/06/23 05:31 WBC 8.3 RBC 4.68 Hgb 13.5 L Hct 39.9 L MCV 85.3 MCH 28.8 MCHC 33.8 RDW 14.2 Plt Count 176 MPV 10.4 Immature Gran % (Auto) 0.8 H Neut % (Auto) 66.8 Lymph % (Auto) 16.4 L [place] % (Auto) 12.1 H Eos % (Auto) 3.4 Baso % (Auto) 0.5 Lymph # (Auto) 1.35 [place] # (Auto) 1.0 H Eos # (Auto) 0.3 Baso # (Auto) 0.0 Abs Immat Gran (auto) 0.07 H Absolute Neuts (auto) 5.5 Absolute Nucleated RBC 0.000 Nucleated RBC % 0.0 Sodium 134 L Potassium 3.7 Chloride 103 Carbon Dioxide 23 Anion Gap 8 BUN 17 Creatinine 2.10 H Estim Creat Clear Calc 26 Estimated GFR 31 L Glucose 101 Calcium 8.6 Magnesium 2.0 Total Bilirubin 2.3 H AST 30 ALT 15 Alkaline Phosphatase 51 Total Protein 6.0 L Albumin 3.2 L TSH (Reflex) 0.801 Random Cortisol 11.20
[2023-11-06 16:00] VITALS: BP 138/90; PULSE 76; RESP 14; TEMP 37.4; O2SAT 96
--- NOTE | 2023-11-06 18:40 | PC.NURSE ---
On 11/06/23, the SWITCHBOARD TROUBLESHOOTER, Jane, provided care and completed [employer] documentation on this patient. I have reviewed the SWITCHBOARD TROUBLESHOOTER's documentation and agree with the findings.
[2023-11-06 20:00] VITALS: BP 149/85; PULSE 77; RESP 16; TEMP 36.7; O2SAT 93
[2023-11-07] VITALS: BP 152/90; PULSE 72; RESP 16; TEMP 37.6; O2SAT 95
[2023-11-07 04:00] VITALS: BP 138/86; PULSE 72; RESP 18; TEMP 37.3; O2SAT 94
[2023-11-07] MEDS: LEVOTHYROXINE SODIUM 75 MCG TABLET PO (05:58)
[2023-11-07 06:27] LABS: Basophils Absolute Auto 0.1 K/mm3 (0.0-0.1); Basophils Percent Auto 0.6 % (0.2-1.2); Eosinophils Absolute Auto 0.3 K/mm3 (0-0.3); Immature Granulocyte Percent A 1.2 % (0-0.5); Lymphocytes Absolute Auto 1.99 K/mm3 (0.9-3.2); Lymphocytes Percent Auto 23.3 % (18.3-44.2); Mean Corpuscular HGB Conc 34.1 g/dl (32-36); Mean Corpuscular Hemoglobin 29.4 pg (26-34); Mean Platelet Volume 10.8 fl (7.4-10.4); Monocytes Percent Auto 11.5 % (2.6-8.5); Neutrophils Absolute Auto 5.1 K/mm3 (1.3-6.7); Neutrophils Percent Auto 59.4 % (45.5-73.1); Platelet Count Result 205 k/mm3 (150-375); Red Blood Count 4.77 M/mm3 (4.6-6.20); Red Cell Distribution Width 14.1 % (11.5-14.5); White Blood Count 8.6 K/mm3 (4.5-10.0)
[2023-11-07 06:41] LABS: Anion Gap 5 mmol/L (4-12); Blood Urea Nitrogen 17 mg/dL (9-20); Calcium 8.6 mg/dL (8.4-10.2); Carbon Dioxide 26 mmol/L (22-30); Chloride 104 mmol/L (98-107); Estimated CRCL calculation 26 ml/min; Estimated Glomerular Filt Rate 31; Glucose 99 mg/dL (65-110); Magnesium 2.1 mg/dL (1.6-2.3); Potassium 3.8 mmol/L (3.4-5.0); Sodium 135 mmol/L (137-145)
[2023-11-07 08:00] VITALS: BP 144/85; PULSE 61; RESP 16; TEMP 37.2; O2SAT 95
--- NOTE | 2023-11-07 08:30 | P.PNNP_ITS ---
Progress Note: A&P Assessment and Plan (1) Acute kidney injury: Code(s): N17.9 - Acute kidney failure, unspecified Status: Acute Assessment and Plan: * baseline creatinine seems to run ~ 1.1 - 1.4mg/dl * up to 1.9 day before yesterday, up to 2.2mg/dl then 2.3mg/dl and then 2.1 yesterday and now again 2.1 * continues to make good urine output * etiology not clear...evaluation to date: * no apparent issues with hypotension post procedure or during operation * UA not suggestive of infection * CPK normal * urine eosinophils negative * urine electrolytes look prerenal * renal ultrasound pending * it is unclear how much better that the creatinine will get. I suspect that this may be his new baseline. * Is okay from the renal standpoint that he goes home today. * Long discussion with the patient. * Continue holding the enalapril until he sees Dr. Parsons. * Please order labs for Wednesday * I asked the patient to call on Wednesday for the results of the labs and also to make an appointment within 2-3 weeks. * we discussed that he should drink if thirsty and not if not thirsty. Do not push the fluids. * He should avoid salt and salty foods. Do not use a salt shaker at all. Watch the content of the sodium in foods that you eat. Limit sodium to about 2400mg per day or 800mg per meal. * He does not need to be on a renal diet. (2) Hyponatremia: Code(s): E87.1 - Hypo-osmolality and hyponatremia Status: Acute Assessment and Plan: * noted by labs done this AM * possible causes: * acute kidney injury * pain * pain medications/narcotics * TSH is okay. * cortisol is only 11.2. * Sodium level is better so if okay tomorrow then we do not need to do the Cortrosyn stim. * SPEP and UPEP along with serum/urine osmolality * Sodium level continues to rise * will follow this up as an outpatient (3) Hypertension: Code(s): I10 - Essential (primary) hypertension Status: Chronic Assessment and Plan: * Systolic running between 140 and 160. * Holding SATISH-inhibitor due to acute kidney injury * will add amlodipine until he can get back on the SATISH-inhibitor. This starts today. 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 Eating well. He is up and around. He eager for discharge. Exam Narrative: General: elderly but WD/WN male in NAD Heart: normal S1 and S2; no rub or gallop Lungs: clear bilaterally Abdomen: soft, nontender, nondistended, positive bowel sounds; incision c/d/i Extremities: no cyanosis or clubbing; no edema Skin: no rash Objective Data Vital Signs Vital Signs: Vital Signs - 24 hr 11/06/23 12:00 11/06/23 10:20 11/06/23 16:00 Temperature 98.7 F 99.3 F Pulse Rate 68 76 Respiratory Rate 16 14 Blood Pressure 148/86 H 138/90 Pulse Oximetry 97 96 Oxygen Delivery Room Air 11/06/23 20:00 11/07/23 00:00 11/07/23 04:00 Temperature 98.1 F 99.7 F H 99.1 F Pulse Rate 77 72 72 Respiratory Rate 16 16 18 Blood Pressure 149/85 H 152/90 H 138/86 Pulse Oximetry 93 95 94 Oxygen Delivery 11/07/23 08:00 Temperature 99.0 F Pulse Rate 61 Respiratory Rate 16 Blood Pressure 144/85 H Pulse Oximetry 95 Oxygen Delivery Intake/Output Intake/Output: Intake & Output 11/04/23 11/05/23 11/06/23 11/07/23 23:59 23:59 23:59 23:59 Intake Total 3403.7 1340 1340 250 Output Total 1750 1725 1250 950 Balance 1653.7 -385 90 -700 Meds/Results Medications: Active Medications Generic Name Dose Route Start Last Admin Trade Name Freq PRN Reason Stop Dose Admin Hydrocodone Bitart/Acetaminophen 1 tab 11/03/23 05:00 11/04/23 21:40 Hydrocodone/Acetaminophen (*Crx) 5-325 Mg Tablet PO 1 tab Q4H PRN Administration Pain Rated 1-3 Hydrocodone Bitart/Acetaminophen 2 tab 11/03/23 05:00 11/04/23 06:36 Hydrocodone/Acetaminophen (*Crx) 5-325 Mg Tablet PO 2 tab Q4H PRN Administration Pain Rated 4-6 Benzocaine 1 lozenge 11/02/23 18:04 11/02/23 18:26 Benzocaine/Menthol (*Bkc) 18 Ea Lozenge PO 1 lozenge PRN PRN Administration Sore Throat Docusate Sodium 100 mg 11/02/23 17:00 11/06/23 17:56 Docusate Sodium 100 Mg Capsule PO 100 mg BID JUANJO Administration Enalapril Maleate 20 mg 11/03/23 09:00 11/04/23 09:05 Enalapril Maleate 10 Mg Tablet PO 20 mg DAILY JUANJO Administration Hydromorphone HCl 0.5 mg 11/02/23 12:59 11/02/23 22:23 Hydromorphone Hcl Inj (*Crx) 1 Mg/Ml Syr IV PUSH 0.5 mg Q4H PRN Administration Pain Rated 7-10 Sodium Chloride 1,000 mls @ 100 mls/hr 11/02/23 12:59 11/02/23 20:31 Normal Saline Iv IV CONT 0 mls/hr .Q10H JUANJO Infusion Levothyroxine Sodium 75 mcg 11/03/23 06:30 11/07/23 05:58 Levothyroxine Sodium 75 Mcg Tablet PO 75 mcg DAILY@0630 JUANJO Administration Morphine Sulfate 1 mg 11/02/23 12:59 Morphine Sulfate (*Crx) 2 Mg/Ml Inj IV PUSH Q2H PRN Pain Rated 4-6 Naloxone HCl 0.1 mg 11/02/23 12:59 Naloxone Hcl 0.4 Mg/Ml Vial IV PUSH Q2M PRN Opiate Reversal Ondansetron HCl 4 mg 11/02/23 12:59 11/02/23 13:45 Ondansetron Inj 4 Mg/2 Ml Vial IV PUSH 4 mg Q6H PRN Administration Nausea And Vomiting Polyethylene Glycol 17 gm 11/04/23 09:45 11/06/23 10:20 Polyethylene Glycol 3350 17 Gm Powd.Pack PO Not Given QAM JUANJO Rosuvastatin Calcium 10 mg 11/03/23 09:00 11/06/23 10:20 Rosuvastatin 10 Mg Tablet PO 10 mg DAILY JUANJO Administration Radiology Results: ITS Impressions Chest X-Ray 11/04/23 14:04 IMPRESSION: 1. Small left pleural effusion. 2. Airspace opacities in the lower lung zones, likely atelectasis. Renal Ultrasound 11/06/23 00:40 IMPRESSION: No abnormality seen in the right kidney. Labs Labs: Laboratory Results - last 24 hr 11/07/23 05:19 WBC 8.6 RBC 4.77 Hgb 14.0 Hct 41.0 L MCV 86.0 MCH 29.4 MCHC 34.1 RDW 14.1 Plt Count 205 MPV 10.8 H Immature Gran % (Auto) 1.2 H Neut % (Auto) 59.4 Lymph % (Auto) 23.3 [place] % (Auto) 11.5 H Eos % (Auto) 4.0 Baso % (Auto) 0.6 Lymph # (Auto) 1.99 [place] # (Auto) 1.0 H Eos # (Auto) 0.3 Baso # (Auto) 0.1 Abs Immat Gran (auto) 0.10 H Absolute Neuts (auto) 5.1 Absolute Nucleated RBC 0.000 Nucleated RBC % 0.0 Sodium 135 L Potassium 3.8 Chloride 104 Carbon Dioxide 26 Anion Gap 5 BUN 17 Creatinine 2.10 H Estim Creat Clear Calc 26 Estimated GFR 31 L Glucose 99 Calcium 8.6 Magnesium 2.1
[2023-11-07] MEDS: amLODIPine BESYLATE 2.5 MG TABLET PO (09:49)
[2023-11-07] MEDS: ROSUVASTATIN 10 MG TABLET PO (09:49)
[2023-11-07] MEDS: DOCUSATE SODIUM 100 MG CAPSULE PO (09:49)
--- NOTE | 2023-11-07 11:36 | P.PNIM_ITS ---
Progress Note: A&P Assessment and Plan (1) Left renal mass: Code(s): N28.89 - Other specified disorders of kidney and ureter Status: Acute (2) Acute kidney injury: Code(s): N17.9 - Acute kidney failure, unspecified Status: Acute (3) Constipation: Code(s): K59.00 - Constipation, unspecified Status: Acute (4) Hyponatremia: Code(s): E87.1 - Hypo-osmolality and hyponatremia Status: Acute Plan Helder Concepcion is a 78 year old male presented for elective left nephrectomy which done on 11/02/2023. Post surgery his creatinine bumped up to 2.2. Nephrology has been consulted. He has also been complaining of constipation. He has been started on stool softeners however has not had any bowel movement yet. Because of abdominal discomfort because of the surgery. Overall feeling better compared to yesterday per hospice consulted for pleural effusion is sodium level dropped down to 127 today. Chest x-ray showed some small pleural effusion with airspace opacities. He denies any cough or shortness of breath. Left pleural effusion and airspace opacity likely due to atelectasis due to recent surgery left nephrectomy. Pleural effusion likely reactive related to eat. I do not suspect underlying pneumonia. His white cell count is also normal he needs to continue on spirometry which I recommended. HUGH on CKD stage 3 baseline creatinine 0.1. Bumped up to 2.3. 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 Approved on hold. Good urine output. Continue to monitor renal parameters. Creatinine improving and settled at 2.1 Hyponatremia likely due to HUGH which is being managed and monitored by Nephrology team. Enalapril on hold. Urinalysis with 3-5 RBC no signs of infection. Urine sodium is 26. Hyponatremia is improved Constipation already on bowel regimen. Received an enema. Continue bowel regimen at discharge. Hypertension: Enalapril on hold due to renal dysfunction. Has been switched to amlodipine which will be ordered at discharge. Hypothyroidism on levothyroxine Hyperlipidemia on rosuvastatin DVT prophylaxis SCDs Code status full code Subjective Date/time seen: 11/07/23 11:36 Interval history: He had a good bowel movement yesterday. No nausea vomiting. Feels good. Labs reviewed. Planned to be discharged today. Review of Systems Review of Systems: All systems reviewed & are unremarkable except as noted in HPI and below Exam Narrative: General: Awake, alert, comfortable, no acute distress HEENT: Normocephalic, atraumatic, sclerae anicteric Respiratory: Normal respiratory effort, no accessory muscle use Abdomen: Nondistended, soft, nontender incision site clean and dry Skin: Normal coloration, warm and dry Neurologic: No focal neuro deficits noted Psychiatric: Appropriate mood and affect, judgment and insight intact Objective Data Vital Signs Vital Signs: Vital Signs - 24 hr 11/06/23 12:00 11/06/23 16:00 11/06/23 20:00 Temperature 98.7 F 99.3 F 98.1 F Pulse Rate 68 76 77 Respiratory Rate 16 14 16 Blood Pressure 148/86 H 138/90 149/85 H Pulse Oximetry 97 96 93 11/07/23 00:00 11/07/23 04:00 11/07/23 08:00 Temperature 99.7 F H 99.1 F 99.0 F Pulse Rate 72 72 61 Respiratory Rate 16 18 16 Blood Pressure 152/90 H 138/86 144/85 H Pulse Oximetry 95 94 95 Intake/Output Intake/Output: Intake & Output 11/04/23 11/05/23 11/06/23 11/07/23 23:59 23:59 23:59 23:59 Intake Total 3403.7 1340 1340 610 Output Total 1750 1725 1250 950 Balance 1653.7 -385 90 -340 Meds/Results Medications: Active Medications Generic Name Dose Route Start Last Admin Trade Name Freq PRN Reason Stop Dose Admin Hydrocodone Bitart/Acetaminophen 1 tab 11/03/23 05:00 11/04/23 21:40 Hydrocodone/Acetaminophen (*Crx) 5-325 Mg Tablet PO 1 tab Q4H PRN Administration Pain Rated 1-3 Hydrocodone Bitart/Acetaminophen 2 tab 11/03/23 05:00 11/04/23 06:36 Hydrocodone/Acetaminophen (*Crx) 5-325 Mg Tablet PO 2 tab Q4H PRN Administration Pain Rated 4-6 Amlodipine Besylate 2.5 mg 11/07/23 09:00 11/07/23 09:49 Amlodipine Besylate 2.5 Mg Tablet PO 2.5 mg QAM JUANJO Administration Benzocaine 1 lozenge 11/02/23 18:04 11/02/23 18:26 Benzocaine/Menthol (*Bkc) 18 Ea Lozenge PO 1 lozenge PRN PRN Administration Sore Throat Docusate Sodium 100 mg 11/02/23 17:00 11/07/23 09:49 Docusate Sodium 100 Mg Capsule PO 100 mg BID JUANJO Administration Enalapril Maleate 20 mg 11/03/23 09:00 11/04/23 09:05 Enalapril Maleate 10 Mg Tablet PO 20 mg DAILY JUANJO Administration Hydromorphone HCl 0.5 mg 11/02/23 12:59 11/02/23 22:23 Hydromorphone Hcl Inj (*Crx) 1 Mg/Ml Syr IV PUSH 0.5 mg Q4H PRN Administration Pain Rated 7-10 Sodium Chloride 1,000 mls @ 100 mls/hr 11/02/23 12:59 11/02/23 20:31 Normal Saline Iv IV CONT 0 mls/hr .Q10H [facility] Infusion Levothyroxine Sodium 75 mcg 11/03/23 06:30 11/07/23 05:58 Levothyroxine Sodium 75 Mcg Tablet PO 75 mcg DAILY@0630 [facility] Administration Morphine Sulfate 1 mg 11/02/23 12:59 Morphine Sulfate (*Crx) 2 Mg/Ml Inj IV PUSH Q2H PRN Pain Rated 4-6 Naloxone HCl 0.1 mg 11/02/23 12:59 Naloxone Hcl 0.4 Mg/Ml Vial IV PUSH Q2M PRN Opiate Reversal Ondansetron HCl 4 mg 11/02/23 12:59 11/02/23 13:45 Ondansetron Inj 4 Mg/2 Ml Vial IV PUSH 4 mg Q6H PRN Administration Nausea And Vomiting Polyethylene Glycol 17 gm 11/04/23 09:45 11/07/23 09:51 Polyethylene Glycol 3350 17 Gm Powd.Pack PO Not Given QAM [facility] Rosuvastatin Calcium 10 mg 11/03/23 09:00 11/07/23 09:49 Rosuvastatin 10 Mg Tablet PO 10 mg DAILY JUANJO Administration Radiology Results: ITS Impressions Chest X-Ray 11/04/23 14:04 IMPRESSION: 1. Small left pleural effusion. 2. Airspace opacities in the lower lung zones, likely atelectasis. Renal Ultrasound 11/06/23 00:40 IMPRESSION: No abnormality seen in the right kidney. Labs Labs: Laboratory Results - last 24 hr 11/07/23 05:19 WBC 8.6 RBC 4.77 Hgb 14.0 Hct 41.0 L MCV 86.0 MCH 29.4 MCHC 34.1 RDW 14.1 Plt Count 205 MPV 10.8 H Immature Gran % (Auto) 1.2 H Neut % (Auto) 59.4 Lymph % (Auto) 23.3 [place] % (Auto) 11.5 H Eos % (Auto) 4.0 Baso % (Auto) 0.6 Lymph # (Auto) 1.99 [place] # (Auto) 1.0 H Eos # (Auto) 0.3 Baso # (Auto) 0.1 Abs Immat Gran (auto) 0.10 H Absolute Neuts (auto) 5.1 Absolute Nucleated RBC 0.000 Nucleated RBC % 0.0 Sodium 135 L Potassium 3.8 Chloride 104 Carbon Dioxide 26 Anion Gap 5 BUN 17 Creatinine 2.10 H Estim Creat Clear Calc 26 Estimated GFR 31 L Glucose 99 Calcium 8.6 Magnesium 2.1
[2023-11-07 11:39] VITALS: BP 135/82; PULSE 68; RESP 16; TEMP 37.1; O2SAT 91
[2023-11-08 15:57] LABS: Creatinine, Random Urine 43 mg/dL (20-320); Total Prot/Creat ratio mg/mg 0.465 (0.025-0.148); Total Protein/Creatinine Ratio 465 mg/g creat (25-148)
[2023-11-09 04:19] LABS: Protein, Total 5.2 g/dL (6.1-8.1)
[2023-11-09 15:24] LABS: Osmolality, Urine 435 mOsm/kg (50-1200)
[2023-11-15 13:18] LABS: Albumin 2.7 g/dL (3.8-4.8); Alpha 1 Globulin 0.4 g/dL (0.2-0.3); Alpha 2 Globulin 0.8 g/dL (0.5-0.9); Beta 1 Globulin 0.4 g/dL (0.4-0.6); Gamma Globulin 0.7 g/dL (0.8-1.7)
--- NOTE | 2023-12-01 12:54 | P.DS_ITS ---
DS: Admitting Diagnosis Discharge Date 11/07/23 Admitting Diagnosis Left renal mass DS: Discharge Diagnosis Discharge Diagnosis Plan left renal mass. Proceed with left hand assisted laparoscopic nephrectomy DS: Summary Hospital Course Hospital Course: patient was admitted on 11/02/2023 for a hand assisted laparoscopic left radical nephrectomy. He did well postoperatively from a urologic standpoint although his renal function increased. Nephrology was consulted and is managing that at the present time. At the time of discharge patient ambulating tolerating a diet and having bowel movements. 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 Time Spent with Patient Time attestation: Total time spent providing and/or coordinating discharge services: DS: Data Data Completed and Pending Completed studies during hospitalization: Pending at discharge 11/02/23 10:28 Surgical [PTH] Routine Discharge Plan Discharge Consulting providers: Pasha Parsons; Nhan Azul; Teofilo Tejeda ; Rody Barkley; Edwardo Upton; Kaz Covington V.; Flory Jimenez Discharging Clinician: Burak Castillo Patient Disposition: Home, Self-Care Activity: may shower and no straining Diet: as tolerated Discharge Instructions: Do not lift more than 20lbs for [address] if not taking narcotic pain medication Nephrology discharge notes: *Continue holding the enalapril until he sees Dr. Parsons. *Drink if thirsty and not if not thirsty. Do not push the fluids. * Avoid salt and salty foods. Do not use a salt shaker at all. Watch the content of the sodium in foods that you eat. Limit sodium to about 2400mg per day or 800mg per meal. Patient Instructions: Low-Sodium Diet (DC), Nephrectomy (DC) Stand Alone Forms: General Discharge Information Follow-up/Referrals: Pasha Parsons MD [Physician] - Other (Call Dr. Parsons's office on Thursday 11/09 to obtain results from bloodwork and to schedule a follow-up appointment for 2-3 weeks) Jairon Ivory MD [Physician] - Call for Appointment Discharge Medications: New tramadol 50 mg tablet 50 mg PO Q6H PRN (Reason: pain) Qty: 20 0RF polyethylene glycol 3350 [Miralax] 17 gram Powder In Packet 17 g PO QAM PRN (Reason: Constipation) Qty: 30 0RF docusate sodium 100 mg Capsule 100 mg PO BID PRN (Reason: Constipation) Qty: 60 0RF Continued levothyroxine 75 mcg tablet 75 mcg PO DAILY omeprazole 40 mg capsule,delayed release(DR/EC) 40 mg PO DAILY rosuvastatin 10 mg tablet 10 mg PO DAILY Baby Aspirin 81 mg PO DAILY Patient Comments: pt stopped it 10/24/23 Discontinued enalapril maleate 20 mg tablet 20 mg PO DAILY No Action cholecalciferol (vitamin D3) 25 mcg (1,000 unit) capsule 25 mcg PO DAILY magnesium 250 mg tablet 250 mg PO DAILY omega 9-fjz-ecs-fish oil [Fish Oil] 300-1,000 mg capsule 1 cap PO BID vitamin B complex Capsule 1 cap PO DAILY coenzyme Q10 200 mg capsule 200 mg PO DAILY albuterol sulfate [Ventolin HFA] 90 mcg/actuation HFA aerosol inhaler 2 puff inhalation Q4-6H PRN triamcinolone acetonide 0.1 % cream 1 applic topical BID-TID zinc acetate 50 mg (zinc) capsule 50 mg PO DAILY amlodipine 2.5 mg tablet 2.5 mg PO QAM Qty: 90 3RF Date of admission: 11/02/23 12:59 Primary Care Provider: Jerciho oDrsey Admitting Provider: Jairon Ivory Attending physician on admission: Burak Castillo Condition: Improved
== END 2023-11-07 12:20 | disposition home or self-care (01) | DRG 657 ==
LOC: ANH3MEDSUR 13:04
PROVIDERS: Internal Medicine; Internal Medicine Nephrology; Physician Assistant; Admitting Provider Urology; PCP Pediatrics; Visit Provider Urology
PROC: 0TT14ZG Resection of Left Kidney, Percutaneous Endoscopic Approach, Hand-Assisted (ICD-10-PCS; principal; 2023-11-02 07:30)
DX: C64.2 Malignant neoplasm of left kidney, except renal pelvis (principal); E22.2 Syndrome of inappropriate secretion of antidiuretic hormone; N17.9 Acute kidney failure, unspecified; J91.8 Pleural effusion in other conditions classified elsewhere; J98.11 Atelectasis; J95.89 Other postprocedural complications and disorders of respiratory system, not elsewhere classified; K59.00 Constipation, unspecified; N18.30 Chronic kidney disease, stage 3 unspecified; I12.9 Hypertensive chronic kidney disease with stage 1 through stage 4 chronic kidney disease, or unspecified chronic kidney disease; E03.9 Hypothyroidism, unspecified; E78.5 Hyperlipidemia, unspecified
CPT/HCPCS: 36415; 71045; 76775; 80048; 80053; 81001; 81050; 82533; 82550; 82570; 82948; 83735; 83930; 83935; 84155; 84156; 84165; 84166; 84300; 84443; 84540; 85014; 85018; 85025; 85027; 85999; 88307; A9270; J0690; J1100; J1170; J2405; J2704; J3010; J7030; J7120; J7121

== ENCOUNTER 2023-11-09 11:10 | Outpatient (CLI) | payer MEDICARE, SELFPAY ==
[2023-11-09 12:02] LABS: Anion Gap 11 mmol/L (4-12); Blood Urea Nitrogen 21 mg/dL (9-20); Calcium 9.1 mg/dL (8.4-10.2); Carbon Dioxide 23 mmol/L (22-30); Chloride 103 mmol/L (98-107); Estimated Glomerular Filt Rate 31; Glucose 110 mg/dL (65-110); Potassium 4.1 mmol/L (3.4-5.0); Sodium 137 mmol/L (137-145)
== END 2023-11-09 11:11 | disposition home or self-care (01) ==
LOC: ANHLAB 11:14
PROVIDERS: PCP Pediatrics; Visit Provider Internal Medicine Nephrology
DX: N17.9 Acute kidney failure, unspecified (principal); E87.1 Hypo-osmolality and hyponatremia
CPT/HCPCS: 36415; 80048

== ENCOUNTER 2023-11-16 15:20 | Outpatient (CLI) | payer MEDICARE, SELFPAY ==
[2023-11-16 16:22] LABS: Albumin Level 4.4 g/dL (3.5-5.1); Anion Gap 13 mmol/L (4-12); Blood Urea Nitrogen 25 mg/dL (9-20); Calcium 9.4 mg/dL (8.4-10.2); Carbon Dioxide 22 mmol/L (22-30); Chloride 103 mmol/L (98-107); Estimated Glomerular Filt Rate 29; Glucose 114 mg/dL (65-110); Phosphorus 4.1 mg/dL (2.5-4.5); Potassium 4.3 mmol/L (3.4-5.0); Sodium 138 mmol/L (137-145)
== END 2023-11-16 15:21 | disposition home or self-care (01) ==
LOC: ANHLAB 15:24
PROVIDERS: PCP Pediatrics; Visit Provider Internal Medicine Nephrology
DX: N17.9 Acute kidney failure, unspecified (principal)
CPT/HCPCS: 36415; 80069

== ENCOUNTER 2024-02-22 10:27 | Outpatient (RCR) | payer MEDICARE, SELFPAY ==
[2024-02-22 10:45] VITALS: BMI 27.8
[2024-02-22 10:47] VITALS: BMI 27.8
== END 2024-05-22 10:00 | disposition home or self-care (01) ==
LOC: ANHDMC 10:27
PROVIDERS: PCP Pediatrics; Visit Provider Internal Medicine Nephrology
DX: N18.32 Chronic kidney disease, stage 3b (principal); Z71.3 Dietary counseling and surveillance
CPT/HCPCS: 97802

== ENCOUNTER 2024-03-21 14:29 | Outpatient (CLI) | payer MEDICARE, SELFPAY ==
--- OUTSIDE RECORDS SUMMARY | 2024-03-21 14:37 | XMS_ITS | Referral Summary ---
Author Organization [facility] Address [address] [place] [address] Care Team Providers Care Veterinary Bacteriologist Name Role Phone Karlos Dorsey MD Primary Care Provider [phone] Source Comments [facility],non-owned Affiliates and Associated Physician Practices is amultiple site organization consisting of ambulatory clinics and hospital sitesin [place], [place], [place] and [place]. This disclosure is being madepursuant to the Care Everywhere program and may not contain all information available regarding this patient. Last updated 17.[facility] Encounters Date Type Department Care Team Description 01/07/2024 Lab Requisition [facility] - DermPath Lab [address], [place] [id number] Sergey Gonzalez MD Neoplasm of uncertain behavior of skin from Last 3 Months Allergies Active Allergy Reactions Criticality Noted Date Comments Doxycycline Diarrhea 06/29/2017 severe diarrhea -- I had to stop taking it Medications * Be aware that medications may not be up to date on this document. Alwaysverify current medications with the patient. Medication Sig Dispensed Refills Start Date End Date Status enalapril (VASOTEC) 20 MG tablet Take 20 mg by mouth 05/17/2017 Active omeprazole (PRILOSEC) 40 MG capsule Take 40 mg by mouth 1 05/08/2017 Active rosuvastatin (CRESTOR) 10 MG tablet Take 10 mg by mouth 04/08/2017 Active levothyroxine (SYNTHROID) 75 MCG tablet Take 75 mcg by mouth 04/08/2017 Active nabumetone (RELAFEN) 500 MG tablet Take 500 mg by mouth 2 times daily Active chlorthalidone (HYGROTON) 25 MG tablet Take 25 mg by mouth once daily Active Coenzyme Q10 (COQ10) 100 MG Take 100 mg by mouth Active Cholecalciferol (D3 ADULT PO) Take 1,000 mg by mouth Active vitamin C (ASCORBIC ACID) 1000 MG tablet Take 1,000 mg by mouth once daily Active aspirin (ASPIRIN) 81 MG tablet Take 81 mg by mouth once daily Active Tracy-3 Fatty Acids (FISH OIL) 1000 MG capsule Active HYDROcodone-acetaminop hen (NORCO) 5-325 MG tablet Take 1 tablet by mouth every 4 hours as needed for Pain 20 tablet 06/29/2017 Active doxycycline monohydrate 100 MG capsule 05/14/2017 Active Active Problems Problem Noted Date Diagnosed Date Malignant melanoma of left forearm 06/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 Cancer Staging:Clinical:Stage IA(cT1a, cN0, cM0) - Unsigned Pathologic stage from 05/14/2018:Stage Unknown(pT1a, pNX, cM0) - Signed by Angelo Madrigal MD on 05/14/2018 Basal cell carcinoma, trunk Social History Tobacco Use Types Packs/Day Years Used Date Smoking Tobacco: Never Smokeless Tobacco: Never Alcohol Use Standard Drinks/Week Comments No 0 (1 standard drink = 0.6 oz pur e alcohol) Sex and Gender Information Value Date Recorded Sex Assigned at Not on file Gender Identity Not on file Sexual Orientation Not on file Last Filed Vital Signs Vital Sign Reading Time Taken Comments Blood Pressure 130/82 07/14/2017 12:50 PM CDT Pulse 54 07/14/2017 12:50 PM CDT Temperature 37.1 ??C (98.8 ??F) 06/29/2017 12:12 PM C DT Respiratory Rate 16 06/29/2017 2:45 PM CDT Oxygen Saturation 95% 06/29/2017 3:15 PM CDT Inhaled Oxygen Concentration - - Weight 83.9 kg (185 lb) 06/29/2017 12:12 PM CDT Height 175.3 cm (5' 9 ) 06/29/2017 12:12 PM CDT Body Mass Index 27.32 06/29/2017 12:12 PM CDT Plan of Treatment Not on file Procedures Procedure Name Priority Date/Time Associated Diagnosis Comments DERMATOPATHOLOGY Routine 01/07/2024 3:33 AM [facility] Neoplasm of uncertain behavior of skin from Last 3 Months Results * DERMATOPATHOLOGY (01/07/2024 3:33 AM [facility]) Case Report Dermatopathology Report ? Case: [id number] ? Authorizing Provider: ??Sergey Gonzalez MD ? Collected: ? 01/07/2024 03:33 AM ? Ordering Location: ? [facility] - ??Received: ?01/10/2024 12:00 PM ? DermPath Lab ? Pathologist: ? Chelo Kenyon, ? MD ? Specimen: ?Skin, left mid upper back ? 4 12:43 PM [facility] DERMATOPATHOLOGY LABORATORY Final Diagnosis Specimen A. SKIN, left mid upper back: JUNCTIONAL MELANOCYTIC PROLIFERATION, INFLAMED; NOT PRESENT AT SAMPLED MARGIN (D48.5) (see microscopic description and comment) 4 12:43 PM [facility] DERMATOPATHOLOGY LABORATORY Clinical History Malignant melanoma 12:43 PM [facility] DERMATOPATHOLOGY LABORATORY Gross Description Specimen A: Received is one formalin filled container labeled with the patient's name and designated left mid upper back. The specimen consists of a shave biopsy measuring 8x8x1 mm. Jar 0. 12:43 PM [facility] DERMATOPATHOLOGY LABORATORY Microscopic Description Specimen A. SKIN, left mid upper back: Sections show a junctional melanocytic proliferation. There is a lentiginous proliferation of melanocytes between irregular nests. Scattered melanocytes show evidence of upward migration within the epidermis. The melanocytes are large and have a jerzy cytoplasm. The melanocytes are highlighted by MART-1/Melan-A. PRAME demonstrates 1+ positivity. There is a lymphohistiocytic infiltrate within the dermis. This lesion is not present at the sampled margin of the specimen. COMMENT: Although the architecture of this lesion is reassuring, the cytology is worrisome. As this lesion appears completely excised in the sampled sections, clinicopathologic correlation is recommended as to complete removal. This case was also reviewed by Dr. Mandi Riddle who agrees with the diagnosis. 12:43 PM [facility] DERMATOPATHOLOGY LABORATORY Disclaimer An external and internal positive and negative controls are appropriate for the histochemical, immunohistochemical and immunofluorescence stain(s) in this case (if any), except where stated explicitly. The performance characteristics of the stain(s) cited in this report were developed and its performance characteristic determined by the Dermatopathology Laboratory at [facility], directed by Dr. Lobito Veliz. These tests need not be, and therefore are not, approved by the [place] Food and Drug Administration. The tests are used for clinical purposes. Billing Codes Specimen Charges Stain Charges 81342 1 [id number] 1 1 12:43 PM [facility] DERMATOPATHOLOGY LABORATORY Embedded Images 12:43 PM [facility] DERMATOPATHOLOGY LABORATORY Pathology/Cytolo gy TISSUE SPECIMEN FROM SKIN / Unknown 01/07/2024 3:33 AM [facility] 01/10/2024 12:00 PM [facility] Sergey Gonzalez MD LAB - PATHOLOGY/CYTO LOGY ORDERABLES DERMATOPATHOLOGY LABORATORY [facility] - Department of Dermatology [address], [address] [phone] from Last 3 Months Advance Directives * Full Code (Latest Code Status on File) Date Activated Date Inactivated Comments 06/29/2017 11:33 AM 06/29/2017 5:07 PM Care Teams Veterinary Bacteriologist Relationship Specialty Start Date End Date Karlos Dorsey MD [address] [place] [address] PCP - General 11/30/08
--- OUTSIDE RECORDS SUMMARY | 2024-03-21 14:37 | XMS_ITS | Clinical Summary ---
Author Organization [facility] Address [address] [place] [address] Care Team Providers Care Core Sticker Name Role Phone Jericho Dorsey MD Primary Care Provider [phone] Allergies Active Allergy Reactions Criticality Noted Date Comments Cyclobenzaprine Rash Medium 03/21/2022 Medications aspirin-calcium carbonate 81 mg-300 mg calcium(777 mg) tablet Take 81 mg by mouth daily. Active cholecalciferol , vitamin D3, (Vitamin D3) 1,000 unit tablet,chewable Take 1,000 mg by mouth daily Active coenzyme Q10 100 mg capsule Take 1 capsule (100 mg total) by mouth daily Active enalapril (VASOTEC) 20 mg tablet Take 1 tablet (20 mg total) by mouth daily 8 Active levothyroxine (SYNTHROID, LEVOTHROID) 75 mcg tablet Take 1 tablet (75 mcg total) by mouth daily 8 Active nabumetone (RELAFEN) 500 mg tablet Take 500 mg by mouth daily. Active omega-3 fatty acids (LOVAZA) 1 gram capsule Take by mouth daily. Active omeprazole (PriLOSEC) 40 mg capsule Take 1 capsule (40 mg total) by mouth daily 8 Active rosuvastatin (CRESTOR) 10 mg tablet Take 1 tablet (10 mg total) by mouth daily 8 Active ascorbic acid (VITAMIN C) 1,000 mg tablet Take 1 tablet (1,000 mg total) by mouth daily Active oxyCODONE-aceta minophen (PERCOCET) 5-325 mg per tabletIndicatio ns:Pain Take 1-2 tablets by mouth every 4 (four) hours as needed for pain. 20 tablet 07/14/201 8 Active Additional Information Patient not taking.Reported on 09/07/2023 hydroCHLOROthia zide 12.5 mg tablet Take 1 tablet (12.5 mg total) by mouth business applications analyst before breakfast Active magnesium oxide (MAG-OX) 250 mg (150.8 mg elemental) tablet Take 1 tablet (250 mg total) by mouth daily Active Active Problems Problem Noted Date Diagnosed Date Gastroesophageal reflux disease 09/07/2023 Personal history of colonic polyps 09/07/2023 Encounter for screening colonoscopy 09/07/2023 Gastroesophageal reflux disease without esophagi tis 06/05/2019 Overview (06/05/2019): Added automatically from request for surgery [id number] Screen for colon cancer 08/10/2018 Overview (08/10/2018): Added automatically from request for surgery [id number] Acute appendicitis with localized peritonitis Malignant neoplasm of prostate 12/31/2010 Overview (05/28/2017): Description: s/p RRP 2003 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 Overview (05/28/2017): Description: s/p IPP 2006 Male urinary stress incontinence 12/31/2010 Overview (05/28/2017): Description: s/p sling 2007 Surgical History Surgery Date Site/Laterality Comments [place] UNLISTED PROCEDURE ABDOME N PERITONEUM & OMENTUM Hernia Repair - x2 (Added by TW Conv) [place] HEMORRHOIDECTOMY INTERNAL RUBBER BAND LIGATIONS Hemorrhoidectomy - (Added by TW Conv) RADICAL PROSTATECTOMY Prostatect Retropubic Radical W/ Bilat Pelv Lymphadenectomy - 2002 Dr Mendoza in [place] (Added by TW Conv) [place] INSJ MULTI-COMPONENT INFLATABLE PENILE PROSTH Surg Penis Insertion Of Penile Prosthesis - Dr. Ramos 2006 (Added by TW Conv) BLADDER SUSPENSION Suprapubic Sling Operation - Dr Ramos 2006 (Added by TW Conv) SKIN BIOPSY APPENDECTOMY 08/28/2017 Dr. Stevenson Medical History Medical History Date Comments Anxiety disorder Anxiety - (Adde d by TW Conv) Personal history of other di seases of the circulatory system History of hypertension - (A dded by TW Conv) Personal history of other en docrine, nutritional and metabolic disease History of hypothyro idism - (Added by TW Conv) Personal history of transien t ischemic attack (TIA), and cerebral infarction without residual deficits History of transient cerebra l ischemia - (Added by TW Conv) Personal history of other me ntal and behavioral disorders History of depression - (Add ed by TW Conv) GERD (gastroesophageal reflux disease) Hypertension Hyperlipidemia Hypothyroidism Stroke (HCC) Social History Tobacco Use Types Packs/Day Years Used Date Smoking Tobacco: Never Smokeless Tobacco: Never Alcohol Use Standard Drinks/Week Comments No 0 (1 standard drink = 0.6 oz pur e alcohol) AUDIT-C Answer Date Recorded Q1: How often do you have a drink containing alc ohol? 2-4 times a month 09/07/2023 Q2: How many drinks containi ng alcohol do you have on a typical day when you are drinking? 1 or 2 09/07/2023 Q3: How often do you have si x or more drinks on one occasion? 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 Gender Identity Not on file Sexual Orientation Not on file Obstetrics History Last Filed Vital Signs Vital Sign Reading Time Taken Comments Blood Pressure 130/84 09/07/2023 2:18 PM CDT Pulse 66 09/07/2023 2:18 PM CDT Temperature 36.8 ??C (98.3 ??F) 08/21/2019 10:35 AM C DT Respiratory Rate 16 08/21/2019 10:35 AM CDT Oxygen Saturation 96% 09/07/2023 2:18 PM CDT Inhaled Oxygen Concentration - - Weight 85.4 kg (188 lb 4.8 oz) 09/07/2023 2:18 P M CDT Height 175.3 cm (5' 9 ) 08/21/2019 9:17 AM CDT Body Mass Index 27.81 08/21/2019 9:17 AM CDT Plan of Treatment Upcoming Encounters Date Type Department Care Team (Latest Contact Info) Description 05/31/2024 10:30 AM CDT Hospital Encounter [facility] [address] [place] [address] Harriet Grover MD [address] [place] [address] [address] 05/31/2024 10:30 AM CDT - 05/31/2024 11:00 AM CDT Surgery [facility] [address] [place] [address] Harriet Grover MD [address] [place] [address] [place] [address] ESOPHAGOGASTRODUODENOSCOPY Scheduled Procedures Name Priority Associated Diagnoses Date/Ti me ESOPHAGOGASTRODUODENOSCOPY Gastroesophageal reflux disease, unspecified whether esophagitis present Personal history of colonic polyps Encounter for screening colonoscopy 05/31/2024 10:30 AM CDT COLONOSCOPY Gastroesophageal reflux disease, unspecified whether esophagitis present Personal history of colonic polyps Encounter for screening colonoscopy 05/31/2024 10:30 AM CDT Health Maintenance Due Date Last Done Comments Depression Screening 1945 DTaP/Tdap/Td Vaccine (1 - Tdap) 10/31/1954 Zoster Vaccine (1 of 2) 10/31/1993 Pneumococcal vaccine 65+ (1 of 1 - PCV) 10/31/2008 Well Visit 65+ 10/31/2008 Fall Risk Assessment 08/20/2020 08/21/2019 Influenza Vaccine (#1) 2023 Colon Cancer Screening-CT Colonography Discontinued , 07/27/2013 Colon Cancer Screening-Colonoscopy Discontinued 2018, 07/27/2013 Colon Cancer Screening-DNA Stool Discontinued 09/27/19 19, 07/27/2013 Colon Cancer Screening-FIT Discontinued 09/26/2018, Colon Cancer Screening-FOBT Discontinued 09/26/2018, 0 07/27/2013 Colon Cancer Screening-Sigmoidoscopy Discontinued 09/15, 07/27/2013 Colorectal Cancer Screening Discontinued Procedures Procedure Name Priority Date/Time Associated Diagnosis Comments COLONOSCOPY 09/26/2018 11:06 AM CDT from Last 3 Months or Most Recently Relevant to Health Maintenance Results * COLONOSCOPY (09/26/2018 11:06 AM CDT) Anatomical Region Laterality Modality Other Narrative Procedure Note Gerald Romano MD - 09/26/2018 11:[address] [facility] Patient Name: Helder Concepcion Procedure Date: 09/26/2018 11:06 AM Date of : 1945 Admit Type: Outpatient Age: 72 Gender: Male Attending MD: Gerald Romano M.D. Room: [facility] ENDOSCOPY ROOM 2 Note Status: Finalized Patient Profile: Refer to note in patient chart for documentation of history and physical. Procedure: Colonoscopy Indications: High risk colon cancer surveillance: Personalhistory of colonic polyps, Last colonoscopy: July 2013 Referring MD: Jericho Dorsey M.D. Providers: Gerald Romano M.D. Impression: - Hemorrhoids found on perianal exam. - Diverticulosis in the sigmoid colon. - The examination was otherwise normal. - No specimens collected. Recommendation: - Discharge patient to home. - Resume previous diet. - Continue present medications. - Repeat colonoscopy in 5 years for surveillance. - Return to primary care physician as previously scheduled. Medicines: Propofol per Anesthesia Complications: No immediate complications. Estimated Blood Loss: Estimated blood loss: none. Procedure: Pre-Anesthesia Assessment: - This assessment was completed prior to the administration of sedation. The benefits, risks and alternatives of theprocedure and sedation were discussed and informed consent was obtained. All questions were answered. Please referto the signed informed consent document in the medical record. Bowel prep was administered using a single dose. The scope was passed under direct vision. The Colonoscope [id number] was introducedthrough the anus and advanced to the the cecum, identifiedby appendiceal orifice and ileocecal valve. The qualityof the bowel preparation was excellent. The bowel preparation used was polyethylene glycol (PEG). Findings: Hemorrhoids were found on perianal exam. Multiple small and large-mouthed diverticula were found in thesigmoid colon. The exam was otherwise without abnormality. Electronically signed by Gerald Romano M.D. Gerald Romano M.D. 09/26/2018 12:05:12 PM Number of Addenda: 0 Note Initiated On: 09/26/2018 11:06 AM Procedure Code(s): --- Professional --- G0105, Colorectal cancer screening; colonoscopy on individual at high risk Diagnosis Code(s): --- Professional --- K57.30, Diverticulosis of large intestine without perforation orabscess without bleeding K64.9, Unspecified hemorrhoids Z86.010, Personal history of colonic polyps CPT copyright 2017 [employer]. All rights reserved. The codes documented in this report are preliminary and upon sports broadcasting internship reviewmay be revised to meet current compliance requirements. Recognized by the [employer] [place] [employer] for promoting quality in endoscopy Gerald Romano MD ENDOSCOPY PROCEDURES Final Re sult from Last 3 Months or Most Recently Relevant to Health Maintenance Insurance [employer] MEDICARE MEDICARE Member Subscriber Plan / Payer (Ef fective 2017-Present) Name:Juan Jose Concepcionmarychuy [place] Member ID:[id number] Relation to Subscriber:Self Name:Juan Jose Concepcionmarychuy [place] Subscriber ID:[id number] Payer ID:[id number] ([facility]) Type:AETNA MEDICARE Address: [address] [address] MEDICARE Advance Directives For more information, please contact: [phone] * Full Code (Latest Code Status on File) Date Activated Date Inactivated Comments 08/21/2019 9:02 AM 08/21/2019 3:15 PM * Full Code Date Activated Date Inactivated Comments 09/26/2018 11:06 AM 09/26/2018 5:34 PM * Full Code Date Activated Date Inactivated Comments 09/26/2018 11:06 AM 09/26/2018 11:06 AM Care Teams Core Sticker Relationship Specialty Start Date End Date Jericho Dorsey MD [address] [place] [id number] PCP - General 08/28/17
--- OUTSIDE RECORDS SUMMARY | 2024-03-21 14:37 | XMS_ITS | Clinical Summary ---
Author Organization [facility] [employer] Address [address] [place] [address] Care Team Providers Care Biological Chemist Name Role Phone Karlos Dorsey MD Primary Care Provider [phone] Source Comments [facility] [employer],non-owned Affiliates and Associated Physician Practices is amultiple site organization consisting of ambulatory clinics and hospital sitesin [place], [place], [place] and [place]. This disclosure is being madepursuant to the Care Everywhere program and may not contain all information available regarding this patient. Last updated 17.[facility] [employer] Allergies Active Allergy Reactions Criticality Noted Date [...] 81 mg by mouth once daily Active Burnside-3 Fatty Acids (FISH OIL) 1000 MG capsule [...] MD on 05/14/2018 Basal cell carcinoma, trunk Encounters Date Type Department Care Team Description 01/07/2024 Lab Requisition [facility] - DermPath Lab [address] [place] [address] Sergey Gonzalez MD Neoplasm of uncertain behavior of skin from Last 3 Months Social History Tobacco Use Types Packs/Day Years [...] 06/29/2017 12:12 PM CDT Plan of Treatment Health Maintenance Due Date Last Done Comments DTAP/TDAP/TD VACCINES (1 - Tdap) 10/31/1962 PNEUMOCOCCAL VACCINE 50+ (1 of 1 - PCV) 10/31/1993 ZOSTER VACCINE (1 of 2) 10/31/1993 Respiratory Syncytial Virus (RSV) Vaccine Pt: or over 60 yrs (1 - 1-dose 75+ series) 10/31/2018 COVID-19 VACCINE (2023-2 5 season) 2023 INFLUENZA VACCINE (#1) 2023 DEPRESSION SCREENING 02/16/2024 MEDICARE AWV ? CALENDAR YEAR 2024 HEPATITIS B VACCINE Aged Out No longe r eligible based on patient's age to complete this topic HIB VACCINE Aged Out No longer eligi ble based on patient's age to complete this topic HPV VACCINE Aged Out No longer eligi ble based on patient's age to complete this topic MENINGOCOCCAL (Group B) VACCINE Aged Out No longer eligible based on patient's age to complete this topic MENINGOCOCCAL VACCINE Aged Out No keri pita eligible based on patient's age to complete this topic Procedures Procedure Name Priority Date/Time Associated Diagnosis Comments DERMATOPATHOLOGY Routine 01/07/2024 3:33 AM NAIL SETTER Neoplasm of uncertain behavior of skin from Last 3 Months Results * DERMATOPATHOLOGY (01/07/2024 3:33 AM NAIL SETTER) Case Report Dermatopathology Report ? Case: [id number] ? Authorizing Provider: ??Sergey Gonzalez MD ? Collected: ? 01/07/2024 03:33 AM ? Ordering Location: ? [facility] - ??Received: ?01/10/2024 12:00 PM ? DermPath Lab ? Pathologist: ? Chelo Kenyon, ? MD ? Specimen: ?Skin, left mid upper back ? 4 12:43 PM [facility] DERMATOPATHOLOGY LABORATORY Final Diagnosis Specimen A. SKIN, left mid upper back: JUNCTIONAL MELANOCYTIC PROLIFERATION, INFLAMED; NOT PRESENT AT SAMPLED MARGIN (D48.5) (see microscopic description and comment) 4 12:43 PM [facility] DERMATOPATHOLOGY LABORATORY Clinical History Malignant melanoma 4 12:43 PM [facility] DERMATOPATHOLOGY LABORATORY Gross Description Specimen A: Received is one formalin filled container labeled with the patient's name and designated left mid upper back. The specimen consists of a shave biopsy measuring 8x8x1 mm. Jar 0. 4 12:43 PM [facility] DERMATOPATHOLOGY LABORATORY Microscopic Description Specimen A. SKIN, [...] who agrees with the diagnosis. 12:43 PM [facility] DERMATOPATHOLOGY LABORATORY Disclaimer An external and internal positive and negative controls are appropriate for the histochemical, immunohistochemical and immunofluorescence stain(s) in this case (if any), except where stated explicitly. The performance characteristics of the stain(s) cited in this report were developed and its performance characteristic determined by the Dermatopathology Laboratory at [facility], directed by Dr. Lobito Veliz. These tests need not be, and therefore are not, approved by the [place] Food and Drug Administration. The tests are used for clinical purposes. Billing Codes Specimen Charges Stain Charges 87670 1 81535 85257 1 1 4 12:43 PM NAIL SETTER DERMATOPATHOLOGY LABORATORY Embedded Images 4 12:43 PM [facility]TER DERMATOPATHOLOGY LABORATORY Pathology/Cytolo gy TISSUE SPECIMEN FROM SKIN / Unknown 01/07/2024 3:33 AM NAIL SETTER 01/10/2024 12:00 PM NAIL SETTER Sergey Gonzalez MD LAB - PATHOLOGY/CYTO LOGY ORDERABLES DERMATOPATHOLOGY LABORATORY [facility] - Department of Dermatology [facility] Medicine [address] [place] [address], [address] [phone] from Last 3 Months Advance Directives * Full Code (Latest Code Status on File) Date Activated Date Inactivated Comments 06/29/2017 11:33 AM 06/29/2017 5:07 PM Care Teams Biological Chemist Relationship Specialty Start Date End Date Karlos Dorsey MD [address] [place] [address] PCP - General 11/30/08
--- OUTSIDE RECORDS SUMMARY | 2024-03-21 14:37 | XMS_ITS | Encounter Summary ---
Author Organization [facility] Address [address] [place] [address] Care Team Providers Care Tablet Machine Operator Name Role Phone Karlos Dorsey MD Primary Care Provider [phone] Encounter Details Date Type Department Care Team (Late st Contact Info) Description 12/31/2022 Lab Requisition [facility] - DermPath Lab [address] [facility] [place] [id number] Toan Du MD [address] [place] [address] Social History Tobacco Use Types Packs/Day Years Used Date Smoking Tobacco: Never Smokeless Tobacco: Never Alcohol Use Standard Drinks/Week Comments No 0 (1 standard drink = 0.6 oz pur e alcohol) Sex and Gender Information Value Date Recorded Sex Assigned at Not on file Gender Identity Not on file Sexual Orientation Not on file documented as of this encounter Plan of Treatment Not on file documented as of this encounter Procedures Procedure Name Priority Date/Time Associated Diagnosis Comments DERMATOPATHOLOGY Routine 12/29/2022 12:0 0 AM BACTERIOLOGY TECHNICIAN documented in this encounter Results * DERMATOPATHOLOGY (12/29/2022 12:00 AM BACTERIOLOGY TECHNICIAN) Case Report Dermatopathology Report ? Case: [id number] ? Authorizing Provider: ??Toan Du MD ?Collected: ? 12/29/2022 12:00 AM ? Ordering Location: ? [facility] DermPath Lab ? Received: ?12/31/2022 09:21 AM ? Pathologist: ? Hailey Swanson MD ? Specimen: ?Skin, right sup shoulder ? 3 3:17 PM [facility] DERMATOPATHOLOGY LABORATORY Final Diagnosis Specimen A. SKIN, right sup shoulder: DERMAL SCAR RESIDUAL BASAL CELL CARCINOMA NOT IDENTIFIED (L90.5) 3 3:17 PM [facility] DERMATOPATHOLOGY LABORATORY Clinical History Bx Proven BCC Check Margin and Prior Biopsy 3 3:17 PM [facility] DERMATOPATHOLOGY LABORATORY Gross Description Specimen A: Received is one formalin filled container labeled with the patient's name and designated right sup shoulder. The specimen consists of a non-oriented ellipse of skin measuring 69d82e1 mm. Also, there lesion measuring 4x2 mm. The margin is inked green. The 12 o'clock and 6 o'clock tips are submitted in cassette 1. The remainder of the ellipse is serially sectioned and submitted in cassette 2 - 3. Jar 0. 3 3:17 PM [facility] DERMATOPATHOLOGY LABORATORY Microscopic Description Specimen A. SKIN, right sup shoulder: There are fibroblasts and collagen bundles oriented parallel to the skin surface. There are elongated blood vessels, some of which are oriented perpendicular to the skin surface. No basal cell carcinoma is identified. 3 3:17 PM [facility] DERMATOPATHOLOGY LABORATORY Disclaimer An external and internal positive and negative controls are appropriate for the histochemical, immunohistochemical and immunofluorescence stain(s) in this case (if any), except where stated explicitly. The performance characteristics of the stain(s) cited in this report were developed and its performance characteristic determined by the Dermatopathology Laboratory at [facility], directed by Dr. Lobito Veliz. These tests need not be, and therefore are not, approved by the [place] Food and Drug Administration. The tests are used for clinical purposes. Billing Codes Specimen Charges Stain Charges 86210 1 3 3:17 PM BACTERIOLOGY TECHNICIAN DERMATOPATHOLOGY LABORATORY Embedded Images 3 3:17 PM BACTERIOLOGY TECHNICIAN DERMATOPATHOLOGY LABORATORY Pathology/Cytolog y TISSUE SPECIMEN FROM SKIN / Unknown 12/29/2022 12/31/2022 9:21 AM BACTERIOLOGY TECHNICIAN Toan Du MD LAB - PATHOLOGY/CYTO LOGY ORDERABLES DERMATOPATHOLOGY LABORATORY [facility] - Department of Dermatology [facility] Medicine [address] [place] [address], [address] [phone] documented in this encounter Visit Diagnoses Not on filedocumented in this encounter Care Teams Tablet Machine Operator Relationship Specialty Start Date End Date Karlos Dorsey MD [address] [place] [id number] PCP - General 11/30/08 documented as of this encounter
--- OUTSIDE RECORDS SUMMARY | 2024-03-21 14:37 | XMS_ITS | Encounter Summary ---
Author Organization [facility] Address [address] [facility] [place] [address] Care Team Providers Care Craft Artist Name Role Phone Karlos Dorsey MD Primary Care Provider [phone] Encounter Details Date Type Department Care Team (Late st Contact Info) Description 12/04/2022 Lab Requisition [facility] - DermPath Lab [address] [facility] [place] [id number] Toan Du MD [address] [place] [address] Social History Tobacco Use Types [...] Priority Date/Time Associated Diagnosis Comments DERMATOPATHOLOGY Routine 12/02/2022 12:0 0 AM CDT documented in this encounter Results * DERMATOPATHOLOGY (12/02/2022 12:00 AM CDT) Case Report Dermatopathology Report ? Case: [id number] ? Authorizing Provider: ??Toan Du MD ?Collected: ? 12/02/2022 12:00 AM ? Ordering Location: ? [facility] DermPath Lab ? Received: ?12/04/2022 09:21 AM ? Pathologist: ? Mandi Riddle MD ? Specimen: ?Skin, right sup shoulder ? 3 2:21 PM T DERMATOPATHOLOGY LABORATORY Final Diagnosis Specimen A. SKIN, right sup shoulder: BASAL CELL CARCINOMA, NODULAR TYPE (C44.612) PRESENT AT MARGIN 3 2:21 PM T DERMATOPATHOLOGY LABORATORY Clinical History R/O Sm BCC. Check Margins. 3 2:21 PM T DERMATOPATHOLOGY LABORATORY Gross Description Specimen A: Received is one formalin filled container labeled with the patient's name and designated right sup shoulder. The specimen consists of a shave biopsy measuring 6x5x1 mm. Jar 0. 3 2:21 PM CDT DERMATOPATHOLOGY LABORATORY Microscopic Description Specimen A. SKIN, right sup shoulder: Within the dermis there are aggregates of basaloid cells with a high nuclear to cytoplasmic ratio and peripheral palisading. This lesion is present at the margin of the specimen. 3 2:21 PM T DERMATOPATHOLOGY LABORATORY Disclaimer An external and internal positive and negative controls are appropriate for the histochemical, immunohistochemical and immunofluorescence stain(s) in this case (if any), except where stated explicitly. The performance characteristics of the stain(s) cited in this report were developed and its performance characteristic determined by the Dermatopathology Laboratory at [facility], directed by Dr. Lobito Veliz. These tests need not be, and therefore are not, approved by the [place] Food and Drug Administration. The tests are used for clinical purposes. Billing Codes Specimen Charges Stain Charges 22644 1 3 2:21 PM CDT DERMATOPATHOLOGY LABORATORY Embedded Images 3 2:21 PM CDT DERMATOPATHOLOGY LABORATORY Pathology/Cytolog y TISSUE SPECIMEN FROM SKIN / Unknown 12/02/2022 12/04/2022 9:21 AM CDT Toan Du MD LAB - PATHOLOGY/CYTO LOGY ORDERABLES DERMATOPATHOLOGY LABORATORY [facility] - Department of Dermatology [address], [address] [phone] documented in this encounter Visit Diagnoses Not on filedocumented in this encounter Care Teams Craft Artist Relationship Specialty Start Date End Date Karlos Dorsey MD [address] [place] [address] PCP - General 11/30/08 documented as of this encounter
--- OUTSIDE RECORDS SUMMARY | 2024-03-21 14:37 | XMS_ITS | Patient Health Summary ---
Author Organization [facility] ([facility]) Address [address] [place] [address] Care Team Providers Care Track Subway Repair Supervisor Name Role Phone Karlos Dorsey MD Primary Care Provider [phone] Note from [facility],non-owned Affiliates and Associated Physician Practices is amultiple site organization consisting of ambulatory clinics and hospital sitesin [place], [place], [place] and [place]. This disclosure is being madepursuant to the Care Everywhere program and may not contain all information available regarding this patient. Last updated 17.[facility] ([facility] Allergies * Doxycycline(Diarrhea) Medications * Be aware that medications may not be up to date on this document. Alwaysverify current medications with the patient. * enalapril (VASOTEC) 20 MG tablet(Started 05/17/2017) Take 20 mg by mouth * omeprazole (PRILOSEC) 40 MG capsule(Started 05/08/2017) Take 40 mg by mouth 1 refill left * rosuvastatin (CRESTOR) 10 MG tablet(Started 04/08/2017) Take 10 mg by mouth * levothyroxine (SYNTHROID) 75 MCG tablet(Started 04/08/2017) Take 75 mcg by mouth * nabumetone (RELAFEN) 500 MG tablet Take 500 mg by mouth 2 times daily * chlorthalidone (HYGROTON) 25 MG tablet Take 25 mg by mouth once daily * Coenzyme Q10 (COQ10) 100 MG Take 100 mg by mouth * Cholecalciferol (D3 ADULT PO) Take 1,000 mg by mouth * vitamin C (ASCORBIC ACID) 1000 MG tablet Take 1,000 mg by mouth once daily * aspirin (ASPIRIN) 81 MG tablet Take 81 mg by mouth once daily * [place]-3 Fatty Acids (FISH OIL) 1000 MG capsule * HYDROcodone-acetaminophen (NORCO) 5-325 MG tablet(Started 06/29/2017) Take 1 tablet by mouth every 4 hours as needed for Pain * doxycycline monohydrate 100 MG capsule(Started 05/14/2017) Active Problems Problem Noted Date Diagnosed Date [...] Mass Index 27.32 06/29/2017 12:12 PM CDT Procedures * DERMATOPATHOLOGY(Performed 01/07/2024) Performed for Neoplasm of uncertain behavior of skin * DERMATOPATHOLOGY(Performed 12/29/2022) * DERMATOPATHOLOGY(Performed 12/02/2022) * DERMATOPATHOLOGY(Performed 05/04/2019) * EXCISION LESION TRUNK BACK/FLANK/BUTTOCK(Performed 06/29/2017) Performed for Malignant melanoma of arm, left (HCC), Basal cell carcinoma (BCC) of upper back * EXCISION LESION ARM/SHOULDER(Performed 06/29/2017) Performed for Malignant melanoma of arm, left (HCC), Basal cell carcinoma (BCC) of upper back * PATHOLOGY TISSUE(Performed 06/29/2017) Performed for Malignant melanoma of arm, left (HCC), Basal cell carcinoma (BCC) of upper back * DERMPATH SLIDE CONSULT(Performed 05/28/2017) Results * DERMATOPATHOLOGY (01/07/2024 3:33 AM QUALITY ASSURANCE/R&D LAB TECHNICIAN) Only the most recent of4 resultswithin the time period is included. Case Report Dermatopathology Report ? Case: [id number] ? Authorizing Provider: ??Sergey Gonzalez MD ? Collected: ? 01/07/2024 03:33 AM ? Ordering Location: ? [facility] - ??Received: ?01/10/2024 12:00 PM ? DermPath Lab ? Pathologist: ? Chelo Kenyon, ? MD ? Specimen: ?Skin, left mid upper back ? 12:43 PM [facility] DERMATOPATHOLOGY LABORATORY Final Diagnosis Specimen A. SKIN, left mid upper back: JUNCTIONAL MELANOCYTIC PROLIFERATION, INFLAMED; NOT PRESENT AT SAMPLED MARGIN (D48.5) (see microscopic description and comment) 12:43 PM [facility] [...] characteristic determined by the Dermatopathology Laboratory at [facility], directed by Dr. Lobito Veliz. These tests need not be, and therefore are not, approved by the [place] Food and Drug Administration. The tests are used for clinical purposes. Billing Codes Specimen Charges Stain Charges 89819 1 82103 42068 1 1 4 12:43 PM QUALITY ASSURANCE/R&D LAB TECHNICIAN DERMATOPATHOLOGY LABORATORY Embedded Images 4 12:43 PM QUALITY ASSURANCE/R&D LAB TECHNICIAN DERMATOPATHOLOGY LABORATORY Pathology/Cytolo gy TISSUE SPECIMEN FROM SKIN / Unknown 01/07/2024 3:33 AM QUALITY ASSURANCE/R&D LAB TECHNICIAN 01/10/2024 12:00 PM QUALITY ASSURANCE/R&D LAB TECHNICIAN Sergey Gonzalez MD LAB - PATHOLOGY/CYTO LOGY ORDERABLES DERMATOPATHOLOGY LABORATORY [facility] - Department of Dermatology [facility] [address] [place] [address], [address] [phone] * PATHOLOGY TISSUE (06/29/2017 1:59 PM CDT) Case Report Surgical Pathology Report ? Case: [id number] ? Authorizing Provider: ??Angelo Madrigal MD ?Collected: ? 06/29/2017 01:59 PM ? Ordering Location: ? [facility] ? Received: ?06/29/2017 03:27 PM ? Pathologist: ? Jordana Alejandre MD ? Specimens: ?? A) - Skin, LEFT FOREARM MELANOMA STITCH @ 12 O'CLOCK ? B) - Skin, LEFT FOREARM MELANOMA SUPERIOR ? C) - Skin, LEFT FOREARM MELANOMA INFERIOR ? D) - Skin, RIGHT UPPER BACK BASAL CELL CANCER STITCH @ 12 O'CLOCK ? 06/30/2017 9:30 PM [facility] PATH[facility]Y LAB Final Diagnosis Skin, left forearm melanoma stitch at 12 o'clock , excision (A): - Scar and biopsy site changes Skin, left forearm melanoma superior , excision (B): - Benign solar lentigo - No evidence of malignancy or dysplasia Skin, left forearm melanoma inferior , excision (C): - No evidence of malignancy or dysplasia Skin, right upper back basal cell cancer stitch at 12 o'clock , excision (D): - No residual cancer 06/30/2017 9:30 PM [facility] Microscopic Description and Comment Hematoxylin and eosin-stained sections of the melanoma and basal cell cancer (A through D) do not show any residual melanoma or basal cell carcinoma. A segment of benign solar lentigo is seen on the left forearm melanoma superior (B). KS/TF/met 06/30/2017 9:30 PM [facility] Clinical History 71-year-old man who underwent excision of melanoma on left arm and basal cell carcinoma of upper back. 06/30/2017 9:30 PM [facility] Gross Description The specimen is received in four formalin-filled containers, each labeled with the patient's name, Helder Concepcion. Specimen A, left forearm melanoma stitch at 12 o'clock , consists of an ellipse of lightly pigmented, hairbearing skin partially oriented with a stitch at 12 o'clock as per the container label. The 12 o'clock nomenclature will be designated looking from superficial towards deep. The specimen measures 2.3 cm from 12 to 6 o'clock, 2.5 cm from 3 to 9 o'clock, and has attached soft yellow subcutaneous tissue excised to a depth of 0.6 cm. Identified in the approximate center of the specimen is a 0.6 x 0.6 cm red lesion which comes to within 0.7 cm from 12 o'clock, 0.9 from 3 o'clock, 0.8 cm from 6 o'clock and 1.1 cm from 9 o'clock. The specimen is inked as follows: 12-3 o'clock - green 3-6 o'clock - blue 6-9 o'clock - purple 9-12 o'clock - orange The specimen is serially sectioned in planes parallel to the 3-9 o'clock axis revealing soft, solid yellow cut surfaces and the lesion seen on the epithelial does not have a well-defined depth. The specimen is entirely submitted as follows: A1 - 12 o'clock shave margin A2-A3 - specimen submitted from 12 toward 6 o'clock A4 - 6 o'clock shave margin Specimen B, left forearm melanoma superior , consists of an unoriented triangularly-shaped portion of lightly pigmented, hairbearing skin measuring 1.5 x 1.2 cm, and soft yellow subcutaneous tissue excised to a depth of 0.6 cm. The external surface is inked blue. The specimen is bisected and entirely submitted in cassette B1. Specimen C, left forearm melanoma inferior , consists of a triangularly-shaped unoriented portion of lightly pigmented, hairbearing skin measuring 1.5 x 1.4 cm, and attached soft yellow subcutaneous tissue excised to a depth of 0.8 cm. The external surface is inked blue. The specimen is bisected and entirely submitted in cassette C1. Specimen D, right upper back basal cell cancer stitch at 12 o'clock , consists of an ellipse of lightly pigmented, hairbearing skin oriented with stitch at 12 o'clock as per the container label. The clock nomenclature is designated looking from superficial towards deep. The specimen measures 2.6 cm from 12-6 o'clock and 1.1 cm from 3 to 9 o'clock, and has 1.4 cm of attached soft yellow subcutaneous tissue. Identified in the approximate center of the specimen is a 0.7 x 0.3 cm pink lesion which comes to within 0.7 cm from 12 o'clock, 0.3 cm from 3 o'clock, 1.0 cm from 6 o'clock and 0.3 cm from 9 o'clock. The specimen is inked as follows: 12-6 o'clock - green 6-12 o'clock - blue The specimen is serially sectioned in planes parallel to the 3 to 9 o'clock axis revealing soft, solid yellow cut surfaces and the epithelial lesion to have a poorly defined depth. The specimen is entirely submitted as follows: D1 - 12 o'clock shave margin D2-D3 - specimen submitted from 12 towards 6 o'clock D4 - 6 o'clock shave margin TF/cmb 06/30/2017 9:30 PM [facility] Disclaimer The performance characteristics of all immunohistochemical and indirect immunofluorescence stains (if any) cited in this report were determined by the Histopathology Laboratory of [facility]. Some of these tests were developed by our own laboratory and have not been cleared or approved by the US Food and Drug Administration. The FDA does not require this test to go through premarket FDA review. These tests are used for clinical purposes. They should not be regarded as investigational or for research. This laboratory is certified under the Clinical Laboratory Improvement Amendments (CLIA) as qualified to perform high complexity clinical laboratory testing. This case has been personally reviewed and interpreted by the attending (teaching) pathologist. 06/30/2017 9:30 PM [facility] Embedded Images 06/30/2017 9:30 PM [facility] Biopsy, Excision TISSUE SPECIMEN FROM SKIN / Unknown 06/29/2017 1:59 PM CDT 06/29/2017 3:27 PM CDT Biopsy, Excision TISSUE SPECIMEN FROM SKIN / Unknown 06/29/2017 1:59 PM CDT 06/29/2017 3:25 PM CDT Biopsy, Excision TISSUE SPECIMEN FROM SKIN / Unknown 06/29/2017 1:59 PM CDT 06/29/2017 3:26 PM CDT Biopsy, Excision TISSUE SPECIMEN FROM SKIN / Unknown 06/29/2017 1:59 PM CDT 06/29/2017 3:26 PM CDT Angelo Madrigal MD LAB - PATHOLOGY/CYTO LOGY ORDERABLES [facility] [address] [place] [address], [facility] [phone] * DERMPATH SLIDE CONSULT (05/28/2017 12:00 AM CDT) Case Report Dermatopathology Report ? Case: [id number] ? Authorizing Provider: ??Toan Du ?Collected: ? 05/28/2017 12:00 AM ? Pathologist: ? Cliff Veliz MD ? Received: ?05/27/2017 04:29 PM ? Specimen: ?Slide(s), Left dorsal forearm, OSC# [id number] ? 2:31 PM CDT DERMATOPATHOLOGY LABORATORY Amended Report Adding the original biopsy date to the report. 2:31 PM CDT DERMATOPATHOLOGY LABORATORY Final Diagnosis Specimen A. Slide(s), Left dorsal forearm, OSC# [id number]: MALIGNANT MELANOMA, SUPERFICIAL SPREADING TYPE BRESLOW THICKNESS 0.5 MM, RAHEEL LEVEL III PRESENT AT MARGIN (C43.62) (see microscopic description, comment, and synoptic report) 2:31 PM CDT DERMATOPATHOLOGY LABORATORY Amendment electronically signed by Cliff Veliz MD on 06/24/2017 at 2:31 PM Clinical History Materials received from: Materials from: [employer] [address] [place] [address] Received are 1 slide(s) labeled [id number] R/O MM. Original Bx Date: 05/18/2017 All slides returned. Any additional sections, special stains or immunohistochemical stains performed by our laboratory will be kept here on file. 2:31 PM [facility] DERMATOPATHOLOGY LABORATORY Microscopic Description Specimen A. Slide(s), Left dorsal forearm, OSC# [id number]: There is a proliferation melanocytes distributed in an irregular pattern singly and in nests at all levels of the epidermis. In the dermis there are irregular nests and single scattered melanocytes. The melanocytes are large, and have dusky cytoplasm. There is a focally brisk lymphocytic inflammatory infiltrate associated with the lesion. Within the dermis, there is focal fibrosis and scattered melanophages, as well as solar elastosis. This lesion is present at the margin of the specimen. COMMENT: This case was also reviewed by Dr. Madhuri Willson who agrees with the diagnosis. 2:31 PM [facility] DERMATOPATHOLOGY LABORATORY Disclaimer An external and internal positive and negative controls are appropriate for the histochemical, immunohistochemical and immunofluorescence stain(s) in this case (if any), except where stated explicitly. The performance characteristics of the stain(s) cited in this report were developed and its performance characteristic determined by the Dermatopathology Laboratory at [facility]. These tests need not be, and therefore are not, approved by the [place] Food and Drug Administration. The tests are used for clinical purposes. Billing Codes Specimen Charges Stain Charges 02087 1 2:31 PM [facility] DERMATOPATHOLOGY LABORATORY Synoptic Report MELANOMA OF THE SKIN: Biopsy ??(Melanoma Bx - A) SPECIMEN ?? Procedure: ?Biopsy, shave ?? Specimen Laterality: ?Left TUMOR ?? Primary Tumor Site: ?Skin ? Primary Tumor Site: ?Skin of upper limb and shoulder ?? Invasiveness: ?Invasive Melanoma ? Histologic Type: ?Superficial spreading melanoma ? Maximum Tumor (Breslow) Thickness in Millimeters (mm): ?At least in Millimeters (mm): 0.5 ??mm ? Explain: ?Tumor is present at the surgical margin; therefore, final depth may exceed the current one. ? Anatomic (Raheel) Level: ?III (melanoma fills and expands papillary dermis) ? Ulceration: ?Not identified ? Mitotic Rate: ?None identified ? Lymphovascular Invasion: ?Not identified ? Neurotropism: ?Not identified ? Tumor Regression: ?Present ? Peripheral Margins: ?Uninvolved by invasive melanoma ? Status of Melanoma In Situ Involvement at Peripheral Margins: ?Involved by melanoma in situ ? Deep Margin: ?Uninvolved by invasive melanoma ? Primary Tumor (pT): ?pT1a: Melanoma 1.0 mm or less in thickness, no ulceration, < 1 mitoses / mm2 ADDITIONAL FINDINGS ?? Additional Pathologic Findings: ?Other (specify): Solar elastosis 8 2:31 PM CDT DERMATOPATHOLOGY LABORATORY Embedded Images 8 2:31 PM CDT DERMATOPATHOLOGY LABORATORY Pathology/Cytolog y SLIDE / Unknown 05/28/2017 05/27/2017 4:29 PM CDT Toan Du MD LAB - PATHOLOGY/CYTO LOGY ORDERABLES DERMATOPATHOLOGY LABORATORY [facility] - Department of Dermatology [address] 5th Floor Lab [address] [phone] Care Teams Track Subway Repair Supervisor Relationship Specialty Start Date End Date Karlos Dorsey MD [address] [place] [address] PCP - General 11/30/08
--- OUTSIDE RECORDS SUMMARY | 2024-03-21 14:37 | XMS_ITS | Referral Summary ---
Author Organization [facility] Address [address] [place] [address] Care Team Providers Care Director Long Term Care Name Role Phone Jericho Dorsey MD Primary Care Provider [phone] Allergies Active Allergy Reactions Criticality Noted Date [...] 1 tablet (12.5 mg total) by mouth mental health assistant before breakfast Active magnesium oxide (MAG-OX) 250 mg (150.8 mg elemental) tablet Take 1 tablet (250 mg total) by mouth daily Active Active Problems Problem Noted Date Diagnosed Date Gastroesophageal reflux disease 09/07/2023 Personal history of colonic polyps 09/07/2023 Encounter for screening colonoscopy 09/07/2023 Gastroesophageal reflux disease without esophagi tis 06/05/2019 Overview (06/05/2019): Added automatically from request for surgery [id number] Screen for colon cancer 08/10/2018 Overview (08/10/2018): Added automatically from request for surgery [id number] Acute appendicitis with localized peritonitis Malignant neoplasm of prostate 12/31/2010 Overview (05/28/2017): Description: s/p RRP 2003 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 Overview (05/28/2017): Description: s/p IPP 2006 Male urinary stress incontinence 12/31/2010 Overview (05/28/2017): Description: s/p flores 2006 Social History Tobacco Use Types Packs/Day Years [...] on file 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 Gender Identity Not on file Sexual Orientation [...] Description 05/31/2024 10:30 AM CDT Hospital Encounter [address] [address] Harriet Grover MD [address] [place] [address] [place] [address] 05/31/2024 10:30 AM CDT - 05/31/2024 11:00 AM CDT Surgery [address] [address] Harriet Grover MD [address] [place] [address] [place] [address] ESOPHAGOGASTRODUODENOSCOPY Scheduled Procedures Name Priority Associated Diagnoses Date/Ti me ESOPHAGOGASTRODUODENOSCOPY Gastroesophageal reflux disease, unspecified whether esophagitis present Personal history of colonic polyps Encounter for screening colonoscopy 05/31/2024 10:30 AM CDT COLONOSCOPY Gastroesophageal reflux disease, unspecified whether esophagitis present Personal history of colonic polyps Encounter for screening colonoscopy 05/31/2024 10:30 AM CDT Procedures Procedure Name Priority Date/Time Associated Diagnosis Comments COLONOSCOPY 09/26/2018 11:06 AM CDT from Last 3 Months or Most Recently Relevant to Health Maintenance Results * COLONOSCOPY (09/26/2018 11:06 AM CDT) Anatomical Region Laterality Modality Other Narrative Procedure Note Gerald Romano MD - 09/26/2018 11:06 AM CDT [facility] Patient Name: Helder Concepcion Procedure Date: 09/26/2018 11:06 AM Date of : 1945 Admit Type: Outpatient Age: 72 Gender: Male Attending MD: Gerald Romano M.D. Room: [facility] RO[facility] 2 Note Status: Finalized Patient [...] was passed under direct vision. The Colonoscope [id number] was introducedthrough the anus and advanced to [...] history of colonic polyps CPT copyright 2017 [employer]. All rights reserved. The codes documented in this report are preliminary and upon auditor/quality reviewmay be revised to meet current compliance requirements. Recognized by the [employer] for promoting quality in endoscopy us Gerald Romano MD ENDOSCOPY PROCEDURES Final Re sult from Last 3 Months or Most Recently Relevant to Health Maintenance Insurance [employer] MEDICARE MEDICARE MEDICARE Advance Directives For more information, please contact: [phone] * Full Code (Latest Code Status on File) Date Activated Date Inactivated Comments 08/21/2019 9:02 AM 08/21/2019 3:15 PM * Full Code Date Activated Date Inactivated Comments 09/26/2018 11:06 AM 09/26/2018 5:34 PM * Full Code Date Activated Date Inactivated Comments 09/26/2018 11:06 AM 09/26/2018 11:06 AM Care Teams Director Long Term Care Relationship Specialty Start Date End Date Jericho Dorsey MD [address] [place] [address] PCP - General 08/28/17
--- OUTSIDE RECORDS SUMMARY | 2024-03-21 14:37 | XMS_ITS | Encounter Summary ---
Author Organization [facility] Address [address] [place] [address] Care Team Providers Care Office Clerk Assistant Name Role Phone Karlos Dorsey MD Primary Care Provider [phone] Encounter Details Date Type Department Care Team (Late st Contact Info) Description 01/07/2024 Lab Requisition [facility] - DermPath Lab [address] [place] [address] Sergey Gonzalez MD [facility] DERMATOLOGY [address] [place] [phone] Neoplasm of uncertain behavior of skin Social History Tobacco Use Types Packs/Day Years [...] Diagnosis Comments DERMATOPATHOLOGY Routine 01/07/2024 3:33 AM [facility] Neoplasm of uncertain behavior of skin documented in this encounter Results * DERMATOPATHOLOGY (01/07/2024 3:33 AM [facility]) Case Report Dermatopathology Report ? Case: [id number] ? Authorizing Provider: ??Sergey Gonzalez MD ? Collected: ? 01/07/2024 03:33 AM ? Ordering Location: ? [facility] - ??Received: ?01/10/2024 12:00 PM ? DermPath Lab ? Pathologist: ? Chelo Kenyon, ? MD ? Specimen: ?Skin, left mid upper back ? 4 12:43 PM [facility] DERMATOPATHOLOGY LABORATORY Final Diagnosis Specimen A. SKIN, left mid upper back: JUNCTIONAL MELANOCYTIC PROLIFERATION, INFLAMED; NOT PRESENT AT SAMPLED MARGIN (D48.5) (see microscopic description and comment) 4 12:43 PM [facility] DERMATOPATHOLOGY LABORATORY Clinical History Malignant melanoma 4 12:43 PM [facility] DERMATOPATHOLOGY LABORATORY Gross Description Specimen A: Received is one formalin filled container labeled with the patient's name and designated left mid upper back. The specimen consists of a shave biopsy measuring 8x8x1 mm. Jar 0. 4 12:43 PM [facility] DERMATOPATHOLOGY LABORATORY Microscopic Description Specimen A. SKIN, [...] who agrees with the diagnosis. 12:43 PM [facility] DERMATOPATHOLOGY LABORATORY Disclaimer An external and internal positive and negative controls are appropriate for the histochemical, immunohistochemical and immunofluorescence stain(s) in this case (if any), except where stated explicitly. The performance characteristics of the stain(s) cited in this report were developed and its performance characteristic determined by the Dermatopathology Laboratory at [facility], directed by Dr. Lobito Veliz. These tests need not be, and therefore are not, approved by the [place] Food and Drug Administration. The tests are used for clinical purposes. Billing Codes Specimen Charges Stain Charges 48977 1 42431 19741 1 1 4 12:43 PM [facility] DERMATOPATHOLOGY LABORATORY Embedded Images 4 12:43 PM [facility] DERMATOPATHOLOGY LABORATORY Pathology/Cytolo gy TISSUE SPECIMEN FROM SKIN / Unknown 01/07/2024 3:33 AM [facility] 01/10/2024 12:00 PM [facility] Sergey Gonzalez MD LAB - PATHOLOGY/CYTO LOGY ORDERABLES DERMATOPATHOLOGY LABORATORY [facility] - Department of Dermatology [facility], 3rd Floor [address] [phone] documented in this encounter Visit Diagnoses Diagnosis Neoplasm of uncertain behavior of skin documented in this encounter Care Teams Office Clerk Assistant Relationship Specialty Start Date End Date Karlos Dorsey MD [address] [place] [address] PCP - General 11/30/08 documented as of this encounter
--- OUTSIDE RECORDS SUMMARY | 2024-03-21 14:37 | XMS_ITS | Encounter Summary ---
Author Organization [facility] Health Address [address] [facility] [place] [address] Care Team Providers Care Marker Shipments Name Role Phone Karlos oDrsey MD Primary Care Provider [phone] Encounter Details Date Type Department Care Team (Late st Contact Info) Description 05/27/2017 Lab Requisition [facility] Care DermPath Lab [address] [facility] [place] [address] Toan Du MD [address] [place] [address] Social History Tobacco Use Types Packs/Day Years Used Date Smoking Tobacco: Never Assessed Sex and Gender Information Value Date Recorded Sex Assigned at Not on file Gender Identity Not on file Sexual Orientation Not on file documented as of this encounter Plan of Treatment Not on file documented as of this encounter Procedures Procedure Name Priority Date/Time Associated Diagnosis Comments DERMPATH SLIDE CONSULT Routine 05/28/2017 12:00 AM CDT documented in this encounter Results * DERMPATH SLIDE CONSULT (05/28/2017 12:00 AM CDT) Case Report Dermatopathology Report ? Case: [id number] ? Authorizing Provider: ??Toan Du ?Collected: ? 05/28/2017 12:00 AM ? Pathologist: ? Cliff Veliz MD ? Received: ?05/27/2017 04:29 PM ? Specimen: ?Slide(s), Left dorsal forearm, OSC# [id number] ? 2:31 PM T DERMATOPATHOLOGY LABORATORY Amended Report Adding the original biopsy date to the report. 2:31 PM [facility] DERMATOPATHOLOGY LABORATORY Final Diagnosis Specimen A. Slide(s), Left dorsal forearm, OSC# [id number]: MALIGNANT MELANOMA, SUPERFICIAL SPREADING TYPE BRESLOW THICKNESS 0.5 MM, RAHEEL LEVEL III PRESENT AT MARGIN (C43.62) (see microscopic description, comment, and synoptic report) 2:31 PM [facility] DERMATOPATHOLOGY LABORATORY Amendment electronically signed by Cliff Veliz MD on 06/24/2017 at 2:31 PM Clinical History Materials received from: Materials from: [facility] [employer] [address] [place] [address] Received are 1 slide(s) labeled [id number] R/O MM. Original Bx Date: 05/18/2017 All slides returned. Any additional sections, special stains or immunohistochemical stains performed by our laboratory will be kept here on file. 2:31 PM [facility] DERMATOPATHOLOGY LABORATORY Microscopic Description Specimen A. Slide(s), Left dorsal forearm, OSC# [id number]: There is a proliferation melanocytes distributed in [...] Madhuri Willson who agrees with the diagnosis. 8 2:31 PM T DERMATOPATHOLOGY LABORATORY Disclaimer An external and internal positive and negative controls are appropriate for the histochemical, immunohistochemical and immunofluorescence stain(s) in this case (if any), except where stated explicitly. The performance characteristics of the stain(s) cited in this report were developed and its performance characteristic determined by the Dermatopathology Laboratory at [facility]. These tests need not be, and therefore are not, approved by the [place] Food and Drug Administration. The tests are used for clinical purposes. Billing Codes Specimen Charges Stain Charges 48469 1 8 2:31 PM T DERMATOPATHOLOGY LABORATORY Synoptic Report MELANOMA OF THE [...] 2:31 PM CDT DERMATOPATHOLOGY LABORATORY Embedded Images 2:31 PM CDT DERMATOPATHOLOGY LABORATORY Pathology/Cytolog y SLIDE / Unknown 05/28/2017 05/27/2017 4:29 PM CDT Toan uD MD LAB - PATHOLOGY/CYTO LOGY ORDERABLES DERMATOPATHOLOGY LABORATORY [facility] - Department of Dermatology [address] [place] [address] [address] [phone] documented in this encounter Visit Diagnoses Not on filedocumented in this encounter Care Teams Marker Shipments Relationship Specialty Start Date End Date Karlos Dorsey MD [address] [place] [address] PCP - General 11/30/08 documented as of this encounter
--- OUTSIDE RECORDS SUMMARY | 2024-03-21 14:37 | XMS_ITS | Encounter Summary ---
Author Organization [facility] Health Address [address] [facility] [place] [address] Care Team Providers Care Associate Trainer Name Role Phone Karlos Dorsey MD Primary Care Provider [phone] Encounter Details Date Type Department Care Team (Late st Contact Info) Description 05/05/2019 Lab Requisition [facility] Care DermPath Lab [address] [facility] [place] [id number] Toan Du MD [address] [place] [address] Social History Tobacco Use Types [...] Priority Date/Time Associated Diagnosis Comments DERMATOPATHOLOGY Routine 05/04/2019 12:0 0 AM CDT documented in this encounter Results * DERMATOPATHOLOGY (05/04/2019 12:00 AM CDT) Case Report Dermatopathology Report ? Case: [id number] ? Authorizing Provider: ??Toan Du MD ?Collected: ? 05/04/2019 12:00 AM ? Ordering Location: ? [facility] DermPath Lab ?Received: ?05/05/2019 10:07 AM ? Pathologist: ? Mandi Riddle MD ? Specimen: ?Skin, nasal tip ? 0 12:41 PM CDT DERMATOPATHOLOGY LABORATORY Final Diagnosis Specimen A. SKIN, nasal tip: BASAL CELL CARCINOMA, INFILTRATIVE PATTERN (C44.311) 0 12:41 PM T DERMATOPATHOLOGY LABORATORY Clinical History R/O neoplasm. 0 12:41 PM CDT DERMATOPATHOLOGY LABORATORY Gross Description Specimen A: Received is one formalin filled container labeled with the patient's name and designated nasal tip. The specimen consists of a shave biopsy measuring 7x6x2 mm. Jar 0. 0 12:41 PM CDT DERMATOPATHOLOGY LABORATORY Microscopic Description Specimen A. SKIN, nasal tip: Within the dermis there are nodular aggregates of basaloid cells associated with fibromyxoid stroma and epithelial-stromal clefts. At the advancing margin of the neoplasm, there are smaller angulated nests that infiltrate the dermis. 0 12:41 PM CDT DERMATOPATHOLOGY LABORATORY Disclaimer An external and internal positive and negative controls are appropriate for the histochemical, immunohistochemical and immunofluorescence stain(s) in this case (if any), except where stated explicitly. The performance characteristics of the stain(s) cited in this report were developed and its performance characteristic determined by the Dermatopathology Laboratory at [facility], directed by Dr. Lobito Veliz. These tests need not be, and therefore are not, approved by the [place] Food and Drug Administration. The tests are used for clinical purposes. Billing Codes Specimen Charges Stain Charges 87570 1 0 12:41 PM CDT DERMATOPATHOLOGY LABORATORY Embedded Images 0 12:41 PM CDT DERMATOPATHOLOGY LABORATORY Pathology/Cytolog y TISSUE SPECIMEN FROM SKIN / Unknown 05/04/2019 05/05/2019 10:07 AM CDT Toan Du MD LAB - PATHOLOGY/CYTO LOGY ORDERABLES DERMATOPATHOLOGY LABORATORY [facility] - Department of Dermatology [address] [place] [address] 5th Floor Lab [address] [phone] documented in this encounter Visit Diagnoses Not on filedocumented in this encounter Care Teams Associate Trainer Relationship Specialty Start Date End Date Karlos Dorsey MD [address] [place] [address] PCP - General 11/30/08 documented as of this encounter
[2024-03-21 15:22] LABS: Albumin Level 4.4 g/dL (3.5-5.1); Anion Gap 13 mmol/L (4-12); Blood Urea Nitrogen 23 mg/dL (9-20); Calcium 8.9 mg/dL (8.4-10.2); Carbon Dioxide 23 mmol/L (22-30); Chloride 105 mmol/L (98-107); Estimated Glomerular Filt Rate 35; Glucose 87 mg/dL (65-110); Magnesium 2.3 mg/dL (1.6-2.3); Phosphorus 4.1 mg/dL (2.5-4.5); Potassium 3.8 mmol/L (3.4-5.0); Sodium 141 mmol/L (137-145)
[2024-03-21 15:32] LABS: Parathyroid Intact 29.8 pg/mL (14.5-75.2)
[2024-03-21 15:46] LABS: Creatinine Urine 191.4 mg/dL; Total Protein Urine Random 16 mg/dL; Ur Ttl Prot Creatinine Ratio 0.08 mg/mg (0-0.20)
[2024-03-21 16:07] LABS: Vitamin D 25 Hydroxy 87.5 ng/mL
== END 2024-03-21 14:30 | disposition home or self-care (01) ==
PROVIDERS: PCP Pediatrics; Visit Provider Internal Medicine Nephrology
DX: I12.9 Hypertensive chronic kidney disease with stage 1 through stage 4 chronic kidney disease, or unspecified chronic kidney disease (principal); N18.32 Chronic kidney disease, stage 3b; N25.81 Secondary hyperparathyroidism of renal origin; E83.42 Hypomagnesemia
CPT/HCPCS: 36415; 80069; 82306; 82570; 83735; 83970; 84156

== ENCOUNTER 2024-03-30 11:37 | Outpatient (CLI) | payer MEDICARE, SELFPAY ==
--- NOTE | ~2024-03-30 | CT_ITS ---
CT of the Abdomen and Pelvis: Indication: Renal cancer Technique: 2.5 mm axial scans were obtained through the abdomen and pelvis prior to and following in travenous administration of 100 cc of Omnipaque 350. Dose reduction technique was used on this scan b y utilizing automated exposure control and iterative reconstruction technique. The dose-length produc t (DLP) was 762.85 mGy-cm. COMPARISON: 10/08/2023 Findings: Scans through the lung bases are unremarkable. The liver, spleen, pancreas, right adrenal gland, and right kidney are within normal limits. Small ga llstones are present. Status post left nephrectomy. Left adrenal gland not clearly seen. There are at herosclerotic calcifications of the aorta. No lymphadenopathy. No bowel obstruction or bowel wall thickening. There is no evidence to suggest acute appendicitis. Images through the pelvis were performed. Urinary bladder unremarkable. No pelvic mass seen. Penile p rosthesis with reservoir present. Impression: No evidence for active malignancy or metastatic disease. Status post left nephrectomy. Reviewed, dictated and finalized at location . OR CLERK Impression: No evidence for active malignancy or metastatic disease. Status post left nephrectomy.
--- OUTSIDE RECORDS SUMMARY | 2024-03-30 11:43 | XMS_ITS | Encounter Summary ---
Author Organization [facility] Address [address] [facility] [place] [address] Care Team Providers Care Field Adjuster Name Role Phone Karlos Dorsey MD Primary Care Provider Encounter Details Date Type Department Care Team (Late st Contact Info) Description 05/27/2017 Lab Requisition [facility] Care DermPath Lab [address] [facility] [place] [address] Toan Du MD [address] [place] [address] Social History Tobacco Use Types [...] 12:00 AM CDT) Case Report Dermatopathology Report Case: [id number] Authorizing Provider: Toan Du Collected: 05/28/2017 12:00 AM Pathologist: Cliff Veliz MD Received: 05/27/2017 04:29 PM Specimen: Slide(s), Left dorsal forearm, OSC# [id number] 8 2:31 PM CDT DERMATOPATHOLOGY LABORATORY Amended Report Adding the original biopsy date to the report. 8 2:31 PM CDT DERMATOPATHOLOGY LABORATORY Final Diagnosis Specimen A. Slide(s), Left dorsal forearm, OSC# [id number]: MALIGNANT MELANOMA, SUPERFICIAL SPREADING TYPE BRESLOW THICKNESS 0.5 MM, RAHEEL LEVEL III PRESENT AT MARGIN (C43.62) (see microscopic description, comment, and synoptic report) 2:[address] [facility] DERMATOPATHOLOGY LABORATORY Amendment electronically signed by Cliff Veliz MD on 06/24/2017 at 2:31 PM Clinical History Materials received from: Materials from: [employer] [address] [place] [address] Received are 1 slide(s) labeled [id number] R/O MM. Original Bx Date: 05/18/2017 All slides returned. Any additional sections, special stains or immunohistochemical stains performed by our laboratory will be kept here on file. 2:[address] [facility] DERMATOPATHOLOGY LABORATORY Microscopic Description Specimen A. Slide(s), Left dorsal forearm, OSC# [id number]: There is a proliferation melanocytes distributed in [...] who agrees with the diagnosis. 2:[address] [facility] DERMATOPATHOLOGY LABORATORY Disclaimer An external and internal positive and negative controls are appropriate for the histochemical, immunohistochemical and immunofluorescence stain(s) in this case (if any), except where stated explicitly. The performance characteristics of the stain(s) cited in this report were developed and its performance characteristic determined by the Dermatopathology Laboratory at [facility]. These tests need not be, and therefore are not, approved by the [place] Food and Drug Administration. The tests are used for clinical purposes. Billing Codes Specimen Charges Stain Charges 78065 1 2:[address] [facility] DERMATOPATHOLOGY LABORATORY Synoptic Report MELANOMA OF THE SKIN: Biopsy (Melanoma Bx - A) SPECIMEN Procedure: Biopsy, shave Specimen Laterality: Left TUMOR Primary Tumor Site: Skin Primary Tumor Site: Skin of upper limb and shoulder Invasiveness: Invasive Melanoma Histologic Type: Superficial spreading melanoma Maximum Tumor (Breslow) Thickness in Millimeters (mm): At least in Millimeters (mm): 0.5 mm Explain: Tumor is present at the surgical margin; therefore, final depth may exceed the current one. Anatomic (Raheel) Level: III (melanoma fills and expands papillary dermis) Ulceration: Not identified Mitotic Rate: None identified Lymphovascular Invasion: Not identified Neurotropism: Not identified Tumor Regression: Present Peripheral Margins: Uninvolved by invasive melanoma Status of Melanoma In Situ Involvement at Peripheral Margins: Involved by melanoma in situ Deep Margin: Uninvolved by invasive melanoma Primary Tumor (pT): pT1a: Melanoma 1.0 mm or less in thickness, no ulceration, < 1 mitoses / mm2 ADDITIONAL FINDINGS Additional Pathologic Findings: Other (specify): Solar elastosis 8 2:31 PM CDT DERMATOPATHOLOGY LABORATORY Embedded Images 8 2:31 PM CDT DERMATOPATHOLOGY LABORATORY Pathology/Cytolog y SLIDE / Unknown 05/28/2017 05/27/2017 4:29 PM CDT Toan Du MD LAB - PATHOLOGY/CYTO LOGY ORDERABLES DERMATOPATHOLOGY LABORATORY [facility] - Department of Dermatology [address] [place] [address] 5th Floor [facility] [address] [phone] documented in this encounter Visit Diagnoses Not on filedocumented in this encounter Care Teams Field Adjuster Relationship Specialty Start Date End Date Karlos Dorsey MD [address] [place] [address] PCP - General 11/30/08 documented as of this encounter
--- OUTSIDE RECORDS SUMMARY | 2024-03-30 11:43 | XMS_ITS | Encounter Summary ---
Author Organization [facility] Address [address] [facility] [place] [address] Care Team Providers Care City Manager Name Role Phone Karlos Dorsey MD Primary Care Provider [phone] Encounter Details Date Type Department Care Team (Late st Contact Info) Description 12/04/2022 Lab Requisition [facility] - DermPath Lab [address] [place] [id number] Toan Du MD [address] [place] [address] Social History Tobacco Use Types [...] AM CDT) Case Report Dermatopathology Report Case: [id number] Authorizing Provider: Toan Du MD Collected: 12/02/2022 12:00 AM Ordering Location: [facility] DermPath Lab Received: 12/04/2022 09:21 AM Pathologist: Mandi Riddle MD Specimen: Skin, right sup shoulder 2:21 PM CDT DERMATOPATHOLOGY LABORATORY Final Diagnosis Specimen A. SKIN, right sup shoulder: BASAL CELL CARCINOMA, NODULAR TYPE (C44.612) PRESENT AT MARGIN 2:21 PM CDT DERMATOPATHOLOGY LABORATORY Clinical History R/O Sm BCC. Check Margins. 2:21 PM CDT DERMATOPATHOLOGY LABORATORY Gross Description Specimen A: Received is one formalin filled container labeled with the patient's name and designated right sup shoulder. The specimen consists of a shave biopsy measuring 6x5x1 mm. Jar 0. 2:21 PM CDT DERMATOPATHOLOGY LABORATORY Microscopic Description Specimen A. SKIN, right sup shoulder: Within the dermis there are aggregates of basaloid cells with a high nuclear to cytoplasmic ratio and peripheral palisading. This lesion is present at the margin of the specimen. 2:21 PM CDT DERMATOPATHOLOGY LABORATORY Disclaimer An external and internal positive and negative controls are appropriate for the histochemical, immunohistochemical and immunofluorescence stain(s) in this case (if any), except where stated explicitly. The performance characteristics of the stain(s) cited in this report were developed and its performance characteristic determined by the Dermatopathology Laboratory at [facility], directed by Dr. Lobito Veliz. These tests need not be, and therefore are not, approved by the [place] Food and Drug Administration. The tests are used for clinical purposes. Billing Codes Specimen Charges Stain Charges 40160 1 2:21 PM CDT DERMATOPATHOLOGY LABORATORY Embedded Images 2:21 PM CDT DERMATOPATHOLOGY LABORATORY Pathology/Cytolog y TISSUE SPECIMEN FROM SKIN / Unknown 12/02/2022 12/04/2022 9:21 AM CDT Toan Du MD LAB - PATHOLOGY/CYTO LOGY ORDERABLES DERMATOPATHOLOGY LABORATORY [facility] - Department of Dermatology [address], [address] [phone] documented in this encounter Visit Diagnoses Not on filedocumented in this encounter Care Teams City Manager Relationship Specialty Start Date End Date Karlos Dorsey MD [address] [place] [address] PCP - General 11/30/08 documented as of this encounter
--- OUTSIDE RECORDS SUMMARY | 2024-03-30 11:43 | XMS_ITS | Clinical Summary ---
Author Organization [facility] Address [address] [place] [address] Care Team Providers Care Animal Trainer Name Role Phone Jericho Dorsey MD Primary Care Provider [phone] Allergies Active Allergy Reactions Criticality Noted Date [...] 1 tablet (12.5 mg total) by mouth speech therapist early intervention before breakfast Active magnesium oxide (MAG-OX) 250 mg (150.8 mg elemental) tablet Take 1 tablet (250 mg total) by mouth daily Active Active Problems Problem Noted Date Diagnosed Date Gastroesophageal reflux disease 09/07/2023 Personal history of colonic polyps 09/07/2023 Encounter for screening colonoscopy 09/07/2023 Gastroesophageal reflux disease without esophagi tis 06/05/2019 Overview (06/05/2019): Added automatically from request for surgery [id number] Screen for colon cancer 08/10/2018 Overview (08/10/2018): Added automatically from request for surgery [id number] Acute appendicitis with localized peritonitis Malignant neoplasm of prostate 12/31/2010 Overview (05/28/2017): Description: s/p RRP 2003 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 Overview (05/28/2017): Description: s/p IPP 2006 Male urinary stress incontinence 12/31/2010 Overview (05/28/2017): Description: s/p sling 2007 Surgical History Surgery Date Site/Laterality Comments [place] UNLISTED PROCEDURE ABDOME N PERITONEUM & OMENTUM Hernia Repair - x2 (Added by TW Conv) [place] HEMORRHOIDECTOMY INTERNAL RUBBER BAND LIGATIONS Hemorrhoidectomy - (Added by TW Conv) RADICAL PROSTATECTOMY Prostatect Retropubic Radical W/ Bilat Pelv Lymphadenectomy - 2002 Dr Mendoza in [place] (Added by TW Conv) [place] INSJ MULTI-COMPONENT INFLATABLE PENILE PROSTH Surg Penis [...] on file 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 [address] [place] [address] Harriet Grover MD [address] [place] [address] DR DICKINSON [address] [place] [address] 05/31/2024 10:30 AM CDT - 05/31/2024 11:00 AM CDT Surgery [facility] [address] [place] [address] Harriet Grover MD [address] [place] [address] ESOPHAGOGASTRODUODENOSCOPY Scheduled Procedures Name Priority Associated Diagnoses [...] Romano MD - 09/26/2018 11:06 AM CDT [facility] Patient Name: Helder Concepcion Procedure Date: 09/26/2018 11:06 AM Date of : 1945 Admit Type: Outpatient Age: 72 Gender: Male Attending MD: Gerald Romano M.D. Room: [facility] ENDOSCOPY ROOM 2 Note Status: Finalized Patient [...] was passed under direct vision. The Colonoscope CF-CP526C [id number] was introducedthrough the anus and advanced to [...] history of colonic polyps CPT copyright 2017 [employer]. All rights reserved. The codes documented in this report are preliminary and upon 911 emergency services dispatcher reviewmay be revised to meet current compliance requirements. Recognized by the [employer] for promoting quality in endoscopy Gerald Romano MD ENDOSCOPY PROCEDURES Final Re sult from Last 3 Months or Most Recently Relevant to Health Maintenance Insurance [employer] MEDICARE MEDICARE MEDICARE Advance Directives For more information, please contact: [phone] * Full Code (Latest Code Status on File) Date Activated Date Inactivated Comments 08/21/2019 9:02 AM 08/21/2019 3:15 PM * Full Code Date Activated Date Inactivated Comments 09/26/2018 11:06 AM 09/26/2018 5:34 PM * Full Code Date Activated Date Inactivated Comments 09/26/2018 11:06 AM 09/26/2018 11:06 AM Care Teams Animal Trainer Relationship Specialty Start Date End Date Jericho Dorsey MD [address] [place] [address] PCP - General 08/28/17
--- OUTSIDE RECORDS SUMMARY | 2024-03-30 11:43 | XMS_ITS | Clinical Summary ---
Author Organization [facility] Address [address] [place] [address] Care Team Providers Care Blacksmith Hammer Operator Name Role Phone Jericho Dorsey MD Primary Care Provider [phone] Allergies Active Allergy Reactions Criticality Noted Date Comments Cyclobenzaprine Rash Low 03/21/2022 Doxycycline Diarrhea 06/29/2017 severe diarrhea -- I had to stop taking it Medications vitamin D3, cholecalciferol , 1000 UNIT Tab tablet Take 1 tablet by mouth daily. Active enalapril (VASOTEC) 20 MG tablet Take 20 mg by mouth daily. Active rosuvastatin (CRESTOR) 10 MG tablet Take 10 mg by mouth nightly at bedtime. Active magnesium oxide (MAG-OX) 250 MG tablet Take 1 tablet by mouth daily. Active aspirin EC 81 MG tablet Take 81 mg by mouth daily. Active omeprazole EC (PRILOSEC OTC) 20 MG tablet Take 20 mg by mouth daily. Active fish oil (OMEGA-3 FATTY ACID) 1000 MG Cap capsule Take 1,000 mg by mouth 2 (two) times daily. Active levothyroxine (SYNTHROID) 75 MCG tablet Take 75 mcg by mouth every morning. Active B Complex-C Tab tablet Take 1 tablet by mouth daily. Active coenzyme Q-10 (CO Q-10) 150 MG capsule Take 200 mg by mouth daily. Active triamcinolone (KENALOG) 0.1 % cream Apply topically 2 (two) times daily. Active hydroCHLOROthia zide (MICROZIDE) 12.5 MG tablet Take 12.5 mg by mouth every morning. Take half tab daily Active Encounters Date Type Department Care Team Description 01/03/2024 8:04 AM POLICY SPECIALIST - 01/03/2024 11:59 PM POLICY SPECIALIST Hospital Encounter [facility] MRI [address] [place] [address] Jericho Dorsey MD Discharge Disposition: Home or Self Care (Routine Discharge) 01/03/2024 Travel from Last 3 Months Social History Tobacco Use Types Packs/Day Years Used Date Smoking Tobacco: Former Smokeless Tobacco: Never Tobacco Cessation:Counseling Given: Not Answered Alcohol Use Standard Drinks/Week Comments Never 0 (1 standard drink = 0.6 oz pur e alcohol) Sex and Gender Information Value Date Recorded Sex Assigned at Not on file Legal Sex Male 1:50 AM CDT Gender Identity Not on file Sexual Orientation Not on file Last Filed Vital Signs Vital Sign Reading Time Taken Comments Blood Pressure 105/81 05/15/2023 11:49 AM CDT Pulse 76 05/15/2023 11:49 AM CDT Temperature 36.6 C (97.8 F) 05/15/2023 11:52 AM CDT Respiratory Rate 18 05/15/2023 11:4 9 AM CDT Oxygen Saturation 95% 05/15/2023 11: 49 AM CDT Inhaled Oxygen Concentration - - Weight 89.8 kg (197 lb 15.6 oz) 024 11:49 AM CDT Height 175.3 cm (5' 9 ) 05/15/2023 11:4 9 AM CDT Body Mass Index 29.24 05/15/2023 11:49 AM CDT Plan of Treatment Health Maintenance Due Date Last Done Comments DTaP, Tdap and Td Vaccines ( 1 - Tdap) 10/31/1962 Annual Medicare Wellness Visit 10/31/2008 Zoster Vaccines (2 of 3) 02/28/2014 01/03/2014 RSV Immunization or 60+ Years (1 - 1-dose 75+ series) 10/31/2018 Pneumococcal Vaccine: 65+ Years (2 of 2 - PPSV23 or PCV20) 12/26/2020 12/27/2019 COVID-19 Vaccine (4 - 2023-2 5 season) 2023 03/14/2021, 06/08/2020, 05/22/2020 Influenza Adult (#1) 2023 Meningococcal B Vaccine Aged Out No l onger eligible based on patient's age to complete this topic Meningococcal Vaccine Aged Out No keri pita eligible based on patient's age to complete this topic RSV Immunizations Under 20 Months Aged Out No longer eligible b ased on patient's age to complete this topic Medical Devices Implanted Type Area Brim And Crown Presser Device Identifier Shelf Expiration Date Model / Serial / Lot Penile Prosthesis Penile Description:[employer]ARD[employer] 2006 Procedures Procedure Name Priority Date/Time Associated Diagnosis Comments MRI LUMB SPINE WO CON STAT 01/03/2024 8:57 AM POLICY SPECIALIST Neuropathy of left lower extremity Low back pain from Last 3 Months Results * MRI LUMB SPINE WO CON (01/03/2024 8:57 AM POLICY SPECIALIST) Anatomical Region Laterality Modality Spine Magnetic Resonan ce 01/03/2024 9:14 AM POLICY SPECIALIST Impressions 01/03/2024 9:22 AM POLICY SPECIALIST IMPRESSION: 1. Moderate to severe bilateral neural foraminal stenosis at L5/S1. Moderate bilateral foraminal stenosis at L4/L5. 2. Mild to moderate central canal stenosis and effacement of the lateral recesses at L4/L5 due to grade 1 anterolisthesis, disc bulging and facet arthropathy. 3. Grade 1 retrolisthesis at L1/L2 and grade 1 anterolisthesis of L4/L5. 4. Indeterminant 0.8 cm lesion within the right side of the L2 vertebral body demonstrating increased STIR signal and intermediate to decreased T1 signal, possibly reflecting an atypical lipid poor hemangioma. Metastasis cannot be excluded. Short-term follow-up noncontrast enhanced MRI of the lumbar spine with and 3-4 months is recommended. Referred By: JERICHO DORSEY Interpreted By: Gerald Oliveira MD, 01/03/2024 9:14 AM Narrative 01/03/2024 9:22 AM POLICY SPECIALIST [address] [address] EXAMINATION:MRI lumbar spine without contrast 01/03/2024 INDICATION:Lower back pain, lower extremity paresthesias neuropathy TECHNIQUE: Multiplanar multisequence MR imaging lumbar spine was performed without intravenous contrast. COMPARISON: Lumbar radiographs 07/06/2022 FINDINGS:Last fully formed disc space is presumed represent L5/S1. Lumbar spine is in anatomic alignment with preservation of vertebral body heights and disc spaces. Bone marrow signal is within normal limits. Modic type I degenerative changes are noted L1/L2. There is a 0.8 cm rounded lesion within the right side of the L2 vertebral body demonstrating a increased T2/STIR signal with the intermediate to decreased T1 signal. There is 3 mm retrolisthesis at L1/L2 and a 4 mm anterolisthesis at L4/L5. The conus terminates at the L1/L2 and is unremarkable contour and signal. No paraspinal mass or fluid collection. Visualized abdominal aorta is unremarkable in contour. The left kidney is absent. T11/T12: Disc space narrowing and mild disc bulging. T12/L1: Negative L1/L2: Disc space narrowing with 3 mm retrolisthesis and disc bulging causing slight effacement of ventral thecal sac and mild bilateral neural foraminal stenosis. L2/L3: Negative L3/L4: Disc bulging and facet arthropathy causing mild bilateral foraminal stenosis L4/L5 disc space narrowing with 4 mm anterolisthesis, disc bulging and facet arthropathy causing mild to moderate central canal stenosis and effacement the lateral recesses and moderate bilateral foraminal stenosis. The thecal sac measures 8 mm. L5/S1: Disc space narrowing disc bulging and facet arthropathy causing moderate to severe bilateral neural foraminal stenosis. Procedure Note Gerald Oliveira MD - 01/03/2024 [address] [place] [address] EXAMINATION:MRI lumbar spine without contrast 01/03/2024 INDICATION:Lower back pain, lower extremity paresthesias neuropathy TECHNIQUE: Multiplanar multisequence MR imaging lumbar spine was performedwithout intravenous contrast. COMPARISON: Lumbar radiographs 07/06/2022 FINDINGS:Last fully formed disc space is presumed represent L5/S1. Lumbarspine is in anatomic alignment with preservation of vertebral body heightsand disc spaces. Bone marrow signal is within normal limits. Modic typeI degenerative changes are noted L1/L2. There is a 0.8 cm rounded lesionwithin the right side of the L2 vertebral body demonstrating a increasedT2/STIR signal with the intermediate to decreased T1 signal. There is 3 mm retrolisthesis at L1/L2 and a 4 mm anterolisthesis atL4/L5. The conus terminates at the L1/L2 and is unremarkable contour and signal.No paraspinal mass or fluid collection. Visualized abdominal aorta isunremarkable in contour. The left kidney is absent. T11/T12: Disc space narrowing and mild disc bulging. T12/L1: Negative L1/L2: Disc space narrowing with 3 mm retrolisthesis and disc bulgingcausing slight effacement of ventral thecal sac and mild bilateral neuralforaminal stenosis. L2/L3: Negative L3/L4: Disc bulging and facet arthropathy causing mild bilateral foraminalstenosis L4/L5 disc space narrowing with 4 mm anterolisthesis, disc bulging andfacet arthropathy causing mild to moderate central canal stenosis andeffacement the lateral recesses and moderate bilateral foraminal stenosis.The thecal sac measures 8 mm. L5/S1: Disc space narrowing disc bulging and facet arthropathy causingmoderate to severe bilateral neural foraminal stenosis. IMPRESSION: 1. Moderate to severe bilateral neural foraminal stenosis at L5/S1.Moderate bilateral foraminal stenosis at L4/L5. 2. Mild to moderate central canal stenosis and effacement of the lateralrecesses at L4/L5 due to grade 1 anterolisthesis, disc bulging and facetarthropathy. 3. Grade 1 retrolisthesis at L1/L2 and grade 1 anterolisthesis ofL4/L5. 4. Indeterminant 0.8 cm lesion within the right side of the L2 vertebralbody demonstrating increased STIR signal and intermediate to decreased L4meixbp, possibly reflecting an atypical lipid poor hemangioma. Metastasiscannot be excluded. Short-term follow-up noncontrast enhanced MRI of thelumbar spine with and 3-4 months is recommended. Referred By: JERICHO DORSEY Interpreted By: Gerald Oliveira MD, 01/03/2024 9:14 AM Jericho Dorsey MD MRI Final Result from Last 3 Months Insurance [employer] Care Teams Blacksmith Hammer Operator Relationship Specialty Start Date End Date Jericho Dorsey MD [address] [place] [address] PCP - General PEDIATRICS 11/28/21
--- OUTSIDE RECORDS SUMMARY | 2024-03-30 11:43 | XMS_ITS | Encounter Summary ---
Author Organization [facility] Address [address] [facility] [place] [address] Care Team Providers Care Director Of Oncology Name Role Phone Karlos Dorsey MD Primary Care Provider [phone] Encounter Details Date Type Department Care Team (Late st Contact Info) Description 01/07/2024 Lab Requisition [facility] - DermPath Lab [address] [place] [id number] Sergey Gonzalez MD [facility] DERMATOLOGY [address] [place] [phone] Neoplasm of uncertain behavior of skin [...] Diagnosis Comments DERMATOPATHOLOGY Routine 01/07/2024 3:33 AM GRADUATE RN Neoplasm of uncertain behavior of skin documented in this encounter Results * DERMATOPATHOLOGY (01/07/2024 3:33 AM GRADUATE RN) Case Report Dermatopathology Report Case: [id number] Authorizing Provider: Sergey Gonzalez MD Collected: 01/07/2024 03:33 AM Ordering Location: [facility] - Received: 01/10/2024 12:00 PM DermPath Lab Pathologist: Chelo Kenyon MD Specimen: Skin, left mid upper back 12:43 PM [facility] DERMATOPATHOLOGY LABORATORY Final Diagnosis Specimen A. SKIN, left mid upper back: JUNCTIONAL MELANOCYTIC PROLIFERATION, INFLAMED; NOT PRESENT AT SAMPLED MARGIN (D48.5) (see microscopic description and comment) 12:43 PM [facility] DERMATOPATHOLOGY LABORATORY Clinical History Malignant melanoma 12:43 PM [facility] DERMATOPATHOLOGY LABORATORY Gross Description Specimen A: Received is one formalin filled container labeled with the patient's name and designated left mid upper back. The specimen consists of a shave biopsy measuring 8x8x1 mm. Jar 0. 12:43 PM [facility] DERMATOPATHOLOGY LABORATORY Microscopic Description Specimen A. [...] who agrees with the diagnosis. 12:43 PM [facility] DERMATOPATHOLOGY LABORATORY Disclaimer An external and internal positive and negative controls are appropriate for the histochemical, immunohistochemical and immunofluorescence stain(s) in this case (if any), except where stated explicitly. The performance characteristics of the stain(s) cited in this report were developed and its performance characteristic determined by the Dermatopathology Laboratory at [facility], directed by Dr. Lobito Veliz. These tests need not be, and therefore are not, approved by the [place] Food and Drug Administration. The tests are used for clinical purposes. Billing Codes Specimen Charges Stain Charges 28673 1 33908 55760 1 1 12:43 PM [facility] DERMATOPATHOLOGY LABORATORY Embedded Images 12:43 PM GRADUATE RN DERMATOPATHOLOGY LABORATORY Pathology/Cytolo gy TISSUE SPECIMEN FROM SKIN / Unknown 01/07/2024 3:33 AM GRADUATE RN 01/10/2024 12:00 PM GRADUATE RN Sergey Gonzalez MD LAB - PATHOLOGY/CYTO LOGY ORDERABLES DERMATOPATHOLOGY LABORATORY [facility] - Department of Dermatology [facility] Specialized Medicine [address] [place] [address], [address] [phone] documented in this encounter Visit Diagnoses Diagnosis Neoplasm of uncertain behavior of skin documented in this encounter Care Teams Director Of Oncology Relationship Specialty Start Date End Date Karlos Dorsey MD [address] [place] [id number] PCP - General 11/30/08 documented as of this encounter
--- OUTSIDE RECORDS SUMMARY | 2024-03-30 11:43 | XMS_ITS | Encounter Summary ---
Author Organization [facility] Address [address] [place] [address] Care Team Providers Care Dry Primer Powder Blender Name Role Phone Kralos Dorsey MD Primary Care Provider [phone] Encounter Details Date Type Department Care Team (Late st Contact Info) Description 05/05/2019 Lab Requisition [facility] DermPath Lab [address] [place] [address] Toan Du MD [address] [place] [address] Social History Tobacco Use Types [...] AM CDT) Case Report Dermatopathology Report Case: [id number] Authorizing Provider: Toan Du MD Collected: 05/04/2019 12:00 AM Ordering Location: [facility] DermPath Lab Received: 05/05/2019 10:07 AM Pathologist: Mandi Riddle MD Specimen: Skin, nasal tip 0 12:41 PM CDT DERMATOPATHOLOGY LABORATORY Final Diagnosis Specimen A. SKIN, nasal tip: BASAL CELL CARCINOMA, INFILTRATIVE PATTERN (C44.311) 0 12:41 PM CDT DERMATOPATHOLOGY LABORATORY Clinical History R/O neoplasm. 0 [...] determined by the Dermatopathology Laboratory at [facility], directed by Dr. Lobito Veliz. These tests need not be, and therefore are not, approved by the [place] Food and Drug Administration. The tests are used for clinical purposes. Billing Codes Specimen Charges Stain Charges 71657 1 0 12:41 PM CDT DERMATOPATHOLOGY LABORATORY Embedded Images 0 12:41 PM CDT DERMATOPATHOLOGY LABORATORY Pathology/Cytolog y TISSUE SPECIMEN FROM SKIN / Unknown 05/04/2019 05/05/2019 10:07 AM CDT Toan Du MD LAB - PATHOLOGY/CYTO LOGY ORDERABLES DERMATOPATHOLOGY LABORATORY [facility] - Department of Dermatology [facility] [facility], [address]th [place] [address], [facility] [phone] documented in this encounter Visit Diagnoses Not on filedocumented in this encounter Care Teams Dry Primer Powder Blender Relationship Specialty Start Date End Date Karlos Dorsey MD [address] [place] [address] PCP - General 11/30/08 documented as of this encounter
--- OUTSIDE RECORDS SUMMARY | 2024-03-30 11:43 | XMS_ITS | Referral Summary ---
Author Organization [facility] Address [address] [place] [address] Care Team Providers Care Field Mechanic/Site Lead Name Role Phone Jericho Dorsey MD Primary Care Provider [phone] Allergies Active Allergy Reactions Criticality Noted Date [...] 1 tablet (12.5 mg total) by mouth liquified natural gas technician before breakfast Active magnesium oxide (MAG-OX) 250 mg (150.8 mg elemental) tablet Take 1 tablet (250 mg total) by mouth daily Active Active Problems Problem Noted Date Diagnosed Date Gastroesophageal reflux disease 09/07/2023 Personal history of colonic polyps 09/07/2023 Encounter for screening colonoscopy 09/07/2023 Gastroesophageal reflux disease without esophagi tis 06/05/2019 Overview (06/05/2019): Added automatically from request for surgery [id number] Screen for colon cancer 08/10/2018 Overview (08/10/2018): Added automatically from request for surgery [id number] Acute appendicitis with localized peritonitis Malignant neoplasm [...] on file Legal Sex Male 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 Room: [facility] ENDOSCOPY ROOM 2 Note Status: Finalized Patient [...] was passed under direct vision. The Colonoscope [id number] was introducedthrough the anus and advanced to [...] history of colonic polyps CPT copyright 2017 [employer]. All rights reserved. The codes documented in this report are preliminary and upon black top machine operator reviewmay be revised to meet current compliance requirements. Recognized by the [employer] for promoting quality in endoscopy Gerald Romano MD ENDOSCOPY PROCEDURES Final Re sult from Last 3 Months or Most Recently Relevant to Health Maintenance Insurance [employer] MEDICARE MEDICARE MEDICARE Advance Directives For more information, please contact: [phone] * Full Code (Latest Code Status on File) Date Activated Date Inactivated Comments 08/21/2019 9:02 AM 08/21/2019 3:15 PM * Full Code Date Activated Date Inactivated Comments 09/26/2018 11:06 AM 09/26/2018 5:34 PM * Full Code Date Activated Date Inactivated Comments 09/26/2018 11:06 AM 09/26/2018 11:06 AM Care Teams Field Mechanic/Site Lead Relationship Specialty Start Date End Date Jericho Dorsey MD [address] [place] [address] PCP - General 08/28/17
--- OUTSIDE RECORDS SUMMARY | 2024-03-30 11:43 | XMS_ITS | Encounter Summary ---
Author Organization [facility] Address [address] [facility] [place] [address] Care Team Providers Care Unemployment Inspector Name Role Phone Karlos Dorsey MD Primary Care Provider [phone] Encounter Details Date Type Department Care Team (Late st Contact Info) Description 12/31/2022 Lab Requisition [facility] - DermPath Lab [address] [place] [phone] Toan Du MD [address] [place] [address] Social History Tobacco Use Types [...] Comments DERMATOPATHOLOGY Routine 12/29/2022 12:0 0 AM DOOR INSTALLER documented in this encounter Results * DERMATOPATHOLOGY (12/29/2022 12:00 AM DOOR INSTALLER) Case Report Dermatopathology Report Case: [id number] Authorizing Provider: Toan Du MD Collected: 12/29/2022 12:00 AM Ordering Location: [facility] DermPath Lab Received: 12/31/2022 09:21 AM Pathologist: Hailey Swanson MD Specimen: Skin, right sup shoulder 3:17 PM DOOR INSTALLER DERMATOPATHOLOGY LABORATORY Final Diagnosis Specimen A. SKIN, right sup shoulder: DERMAL SCAR RESIDUAL BASAL CELL CARCINOMA NOT IDENTIFIED (L90.5) 3 3:17 PM [facility] DERMATOPATHOLOGY LABORATORY Clinical History Bx Proven BCC Check Margin and Prior Biopsy 3 3:17 PM [facility] DERMATOPATHOLOGY LABORATORY Gross Description Specimen A: Received is one formalin filled container labeled with the patient's name and designated right sup shoulder. The specimen consists of a non-oriented ellipse of skin measuring 78h56l1 mm. Also, there lesion measuring 4x2 mm. The margin is inked green. The 12 o'clock and 6 o'clock tips are submitted in cassette 1. The remainder of the ellipse is serially sectioned and submitted in cassette 2 - 3. Jar 0. 3 3:17 PM [facility] DERMATOPATHOLOGY LABORATORY Microscopic Description Specimen A. SKIN, right sup shoulder: There are fibroblasts and collagen bundles oriented parallel to the skin surface. There are elongated blood vessels, some of which are oriented perpendicular to the skin surface. No basal cell carcinoma is identified. 3 3:17 PM [facility] DERMATOPATHOLOGY LABORATORY Disclaimer An external and internal positive and negative controls are appropriate for the histochemical, immunohistochemical and immunofluorescence stain(s) in this case (if any), except where stated explicitly. The performance characteristics of the stain(s) cited in this report were developed and its performance characteristic determined by the Dermatopathology Laboratory at [facility], directed by Dr. Lobito Veliz. These tests need not be, and therefore are not, approved by the [place] Food and Drug Administration. The tests are used for clinical purposes. Billing Codes Specimen Charges Stain Charges 12962 1 3 3:17 PM [facility] DERMATOPATHOLOGY LABORATORY Embedded Images 3 3:17 PM [facility] DERMATOPATHOLOGY LABORATORY Pathology/Cytolog y TISSUE SPECIMEN FROM SKIN / Unknown 12/29/2022 12/31/2022 9:21 AM DOOR INSTALLER Toan Du MD LAB - PATHOLOGY/CYTO LOGY ORDERABLES DERMATOPATHOLOGY LABORATORY [facility] - Department of Dermatology [address], [address] [phone] documented in this encounter Visit Diagnoses Not on filedocumented in this encounter Care Teams Unemployment Inspector Relationship Specialty Start Date End Date Karlos Dorsey MD [address] [place] [address] PCP - General 11/30/08 documented as of this encounter
--- OUTSIDE RECORDS SUMMARY | 2024-03-30 11:44 | XMS_ITS | Clinical Summary ---
Author Organization [facility] [employer] Address [address] [place] [address] Care Team Providers Care Machinery Erector Name Role Phone Karlos Dorsey MD Primary Care Provider [phone] Source Comments [facility] [employer],non-owned Affiliates and Associated Physician Practices is amultiple site organization consisting of ambulatory clinics and hospital sitesin [place], [place], [place] and [place]. This disclosure is being madepursuant to the Care Everywhere program and may not contain all information available regarding this patient. Last updated 17.[facility] [employer] Allergies Active Allergy Reactions Criticality Noted Date [...] 81 mg by mouth once daily Active [place]-3 Fatty Acids (FISH OIL) 1000 MG capsule [...] Department Care Team Description 01/07/2024 Lab Requisition [facility] - DermPath Lab [address] [place] [address] Sergey Gonzalez MD Neoplasm of uncertain behavior [...] 54 07/14/2017 12:50 PM CDT Temperature 37.1 C (98.8 F) 06/29/2017 12:12 PM CDT Respiratory Rate 16 06/29/2017 2:45 PM CDT [...] (#1) 2023 DEPRESSION SCREENING 02/16/2024 MEDICARE AWV CALENDAR YEAR 2024 HEPATITIS B VACCINE Aged [...] Diagnosis Comments DERMATOPATHOLOGY Routine 01/07/2024 3:33 AM BUSINESS EDUCATION INSTRUCTOR Neoplasm of uncertain behavior of skin from Last 3 Months Results * DERMATOPATHOLOGY (01/07/2024 3:33 AM BUSINESS EDUCATION INSTRUCTOR) Case Report Dermatopathology Report Case: [id number] Authorizing Provider: Sergey Gonzalez MD Collected: 01/07/2024 03:33 AM Ordering Location: [facility] - Received: 01/10/2024 12:00 PM DermPath Lab Pathologist: Chelo Kenyon MD Specimen: Skin, left mid upper back 12:43 PM BUSINESS EDUCATION INSTRUCTOR DERMATOPATHOLOGY LABORATORY Final Diagnosis Specimen A. SKIN, left mid upper back: JUNCTIONAL MELANOCYTIC PROLIFERATION, INFLAMED; NOT PRESENT AT SAMPLED MARGIN (D48.5) (see microscopic description and comment) 12:43 PM [facility] DERMATOPATHOLOGY LABORATORY Clinical History Malignant melanoma 12:43 PM [facility] DERMATOPATHOLOGY LABORATORY Gross Description Specimen A: Received is one formalin filled container labeled with the patient's name and designated left mid upper back. The specimen consists of a shave biopsy measuring 8x8x1 mm. Jar 0. 12:43 PM [facility] DERMATOPATHOLOGY LABORATORY Microscopic Description Specimen A. SKIN, [...] Mandi Riddle who agrees with the diagnosis. 4 12:43 PM [facility] DERMATOPATHOLOGY LABORATORY Disclaimer An external and internal positive and negative controls are appropriate for the histochemical, immunohistochemical and immunofluorescence stain(s) in this case (if any), except where stated explicitly. The performance characteristics of the stain(s) cited in this report were developed and its performance characteristic determined by the Dermatopathology Laboratory at [facility], directed by Dr. Lobito Veliz. These tests need not be, and therefore are not, approved by the [place] Food and Drug Administration. The tests are used for clinical purposes. Billing Codes Specimen Charges Stain Charges 44879 1 45707 58591 1 1 4 12:43 PM [facility] DERMATOPATHOLOGY LABORATORY Embedded Images 4 12:43 PM [facility] DERMATOPATHOLOGY LABORATORY Pathology/Cytolo gy TISSUE SPECIMEN FROM SKIN / Unknown 01/07/2024 3:33 AM BUSINESS EDUCATION INSTRUCTOR 01/10/2024 12:00 PM BUSINESS EDUCATION INSTRUCTOR Sergey Gonzalez MD LAB - PATHOLOGY/CYTO LOGY ORDERABLES DERMATOPATHOLOGY LABORATORY [facility] - Department of Dermatology [facility] Medicine [address] [place] [address], [address] [phone] from Last 3 Months Advance Directives * Full Code (Latest Code Status on File) Date Activated Date Inactivated Comments 06/29/2017 11:33 AM 06/29/2017 5:07 PM Care Teams Machinery Erector Relationship Specialty Start Date End Date Karlos Dorsey MD [address] [place] [address] PCP - General 11/30/08
--- OUTSIDE RECORDS SUMMARY | 2024-03-30 11:44 | XMS_ITS | Patient Health Summary ---
Author Organization [facility] [employer] Address [address] [place] [address] Care Team Providers Care Back Tufter Name Role Phone Karlos Dorsey MD Primary Care Provider [phone] Note from [facility],non-owned Affiliates and Associated Physician Practices is amultiple site organization consisting of ambulatory clinics and hospital sitesin [place], [place], [place] and [place]. This disclosure is being madepursuant to the Care Everywhere program and may not contain all information available regarding this patient. Last updated 17.[facility] [employer] Allergies * Doxycycline(Diarrhea) Medications * Be aware [...] 81 mg by mouth once daily * [place]-3 Fatty Acids (FISH OIL) 1000 MG capsule [...] 05/28/2017) Results * DERMATOPATHOLOGY (01/07/2024 3:33 AM PRENATAL TEACHER) Only the most recent of4 resultswithin the time period is included. Case Report Dermatopathology Report Case: [id number] Authorizing Provider: Sergey Gonzalez MD Collected: 01/07/2024 03:33 AM Ordering Location: [facility] - Received: 01/10/2024 12:00 PM DermPath Lab Pathologist: Chelo Kenyon MD Specimen: Skin, left mid upper back 12:43 PM [facility] DERMATOPATHOLOGY LABORATORY Final Diagnosis Specimen A. SKIN, left mid upper back: JUNCTIONAL MELANOCYTIC PROLIFERATION, INFLAMED; NOT PRESENT AT SAMPLED MARGIN (D48.5) (see microscopic description and comment) 12:43 PM [facility] DERMATOPATHOLOGY LABORATORY Clinical History Malignant melanoma 12:43 PM [facility] DERMATOPATHOLOGY LABORATORY Gross Description Specimen A: Received is one formalin filled container labeled with the patient's name and designated left mid upper back. The specimen consists of a shave biopsy measuring 8x8x1 mm. Jar 0. 12:43 PM [facility] DERMATOPATHOLOGY LABORATORY Microscopic Description Specimen A. SKIN, [...] who agrees with the diagnosis. 12:43 PM [facility] DERMATOPATHOLOGY LABORATORY Disclaimer An external and internal positive and negative controls are appropriate for the histochemical, immunohistochemical and immunofluorescence stain(s) in this case (if any), except where stated explicitly. The performance characteristics of the stain(s) cited in this report were developed and its performance characteristic determined by the Dermatopathology Laboratory at [facility], directed by Dr. Lobito Veliz. These tests need not be, and therefore are not, approved by the [place] Food and Drug Administration. The tests are used for clinical purposes. Billing Codes Specimen Charges Stain Charges 41598 1 52762 81717 1 1 4 12:43 PM PRENATAL TEACHER DERMATOPATHOLOGY LABORATORY Embedded Images 4 12:43 PM PRENATAL TEACHER DERMATOPATHOLOGY LABORATORY Pathology/Cytolo gy TISSUE SPECIMEN FROM SKIN / Unknown 01/07/2024 3:33 AM PRENATAL TEACHER 01/10/2024 12:00 PM PRENATAL TEACHER Sergey Gonzalez MD LAB - PATHOLOGY/CYTO LOGY ORDERABLES DERMATOPATHOLOGY LABORATORY [facility] Department of Dermatology [address], [address] [phone] * PATHOLOGY TISSUE (06/29/2017 1:59 PM CDT) Case Report Surgical Pathology Report Case: [id number] Authorizing Provider: Angelo Madrigal MD Collected: 06/29/2017 01:59 PM Ordering Location: [facility] Received: 06/29/2017 03:27 PM Pathologist: Jordana Alejandre MD Specimens: A) - Skin, LEFT FOREARM MELANOMA STITCH @ 12 O'CLOCK B) - Skin, LEFT FOREARM MELANOMA SUPERIOR C) - Skin, LEFT FOREARM MELANOMA INFERIOR D) - Skin, RIGHT UPPER BACK BASAL CELL CANCER STITCH @ 12 O'CLOCK 06/30/2017 9:30 PM CDT [facility] PATHOLOGY LAB Final Diagnosis Skin, left forearm [...] - No residual cancer 06/30/2017 9:30 PM [facility] PATHOLOGY LAB Microscopic Description and Comment Hematoxylin and eosin-stained sections of the melanoma and basal cell cancer (A through D) do not show any residual melanoma or basal cell carcinoma. A segment of benign solar lentigo is seen on the left forearm melanoma superior (B). KS/TF/met 06/30/2017 9:30 PM [facility] PATHOLOGY LAB Clinical History 71-year-old man who underwent excision of melanoma on left arm and basal cell carcinoma of upper back. 06/30/2017 9:30 PM [facility] PATHOLOGY LAB Gross Description The specimen is [...] o'clock shave margin TF/cmb 06/30/2017 9:30 PM CDT [facility] PATHOLOGY LAB Disclaimer The performance characteristics of all immunohistochemical and indirect immunofluorescence stains (if any) cited in this report were determined by the Histopathology Laboratory of [facility]. Some of these tests were developed by [...] the attending (teaching) pathologist. 06/30/2017 9:30 PM CDT [facility] PATHOLOGY LAB Embedded Images 06/30/2017 9:30 PM CDT [facility] PATHOLOGY LAB Biopsy, Excision TISSUE SPECIMEN FROM [...] Madrigal MD LAB - PATHOLOGY/CYTO LOGY ORDERABLES Performing Organization Address City/State/[facility] Co de Phone Number [facility] PATHOLOGY LAB [address] [phone] * DERMPATH SLIDE CONSULT (05/28/2017 12:00 AM CDT) Case Report Dermatopathology Report Case: [id number] Authorizing Provider: Toan Du Collected: 05/28/2017 12:00 AM Pathologist: Cliff Veliz MD Received: 05/27/2017 04:29 PM Specimen: Slide(s), Left dorsal forearm, [id number]# [id number] 2:31 PM CDT DERMATOPATHOLOGY LABORATORY Amended Report Adding the original biopsy date to the report. 2:31 PM CDT DERMATOPATHOLOGY LABORATORY Final Diagnosis Specimen A. Slide(s), Left dorsal forearm, OSC# [id number]: MALIGNANT MELANOMA, SUPERFICIAL SPREADING TYPE [place] THICKNESS 0.5 MM, RAHEEL LEVEL III PRESENT AT MARGIN (C43.62) (see microscopic description, comment, and synoptic report) 2:31 PM CDT DERMATOPATHOLOGY LABORATORY Amendment electronically signed by Cliff Veliz MD on 06/24/2017 at 2:31 PM Clinical History Materials received from: Materials from: [employer] [address] [place] [id number] Received are 1 slide(s) labeled [id number] R/O MM. Original Bx Date: 05/18/2017 All slides returned. Any additional sections, special stains or immunohistochemical stains performed by our laboratory will be kept here on file. 2:[address] [facility] DERMATOPATHOLOGY LABORATORY Microscopic Description Specimen A. Slide(s), Left dorsal forearm, OSC# [id number]: There is a proliferation melanocytes distributed in [...] who agrees with the diagnosis. 2:[address] [facility] DERMATOPATHOLOGY LABORATORY Disclaimer An external and internal positive and negative controls are appropriate for the histochemical, immunohistochemical and immunofluorescence stain(s) in this case (if any), except where stated explicitly. The performance characteristics of the stain(s) cited in this report were developed and its performance characteristic determined by the Dermatopathology Laboratory at [facility]. These tests need not be, and therefore are not, approved by the [place] Food and Drug Administration. The tests are used for clinical purposes. Billing Codes Specimen Charges Stain Charges 00158 1 2:[address] [facility] DERMATOPATHOLOGY LABORATORY Synoptic Report MELANOMA OF THE [...] LAB - PATHOLOGY/CYTO LOGY ORDERABLES DERMATOPATHOLOGY LABORATORY [facility] - Department of Dermatology [address] [place] [address] [address] [phone] Care Teams Back Tufter Relationship Specialty Start Date End Date Karlos Dorsey MD [address] [place] [address] PCP - General 11/30/08
--- OUTSIDE RECORDS SUMMARY | 2024-03-30 11:44 | XMS_ITS | Referral Summary ---
Author Organization [facility] Address [address] [place] [address] Care Team Providers Care Plate Glass Installer Helper Name Role Phone Karlos Dorsey MD Primary Care Provider [phone] Source Comments [facility],non-owned Affiliates and Associated Physician Practices is amultiple site organization consisting of ambulatory clinics and hospital sitesin [place], [place] and [place]. This disclosure is being madepursuant to the Care Everywhere program and may not contain all information available regarding this patient. Last updated 17.[facility] Encounters Date Type Department Care Team Description 01/07/2024 Lab Requisition [facility] - DermPath Lab [address], [place] [phone] Sergey Gonzalez MD Neoplasm of uncertain behavior [...] 81 mg by mouth once daily Active [place]-3 Fatty Acids (FISH OIL) 1000 MG capsule [...] Diagnosis Comments DERMATOPATHOLOGY Routine 01/07/2024 3:33 AM NUCLEAR PROCESS ENGINEER Neoplasm of uncertain behavior of skin from Last 3 Months Results * DERMATOPATHOLOGY (01/07/2024 3:33 AM NUCLEAR PROCESS ENGINEER) Case Report Dermatopathology Report Case: [id number] Authorizing Provider: Sergey Gonzalez MD Collected: 01/07/2024 03:33 AM Ordering Location: [facility] - Received: 01/10/2024 12:00 PM DermPath Lab Pathologist: Chelo Kenyon MD Specimen: Skin, left mid upper back 12:43 PM [facility] DERMATOPATHOLOGY LABORATORY Final Diagnosis Specimen A. SKIN, left mid upper back: JUNCTIONAL MELANOCYTIC PROLIFERATION, INFLAMED; NOT PRESENT AT SAMPLED MARGIN (D48.5) (see microscopic description and comment) 12:43 PM [facility] DERMATOPATHOLOGY LABORATORY Clinical History Malignant melanoma 12:43 PM [facility] DERMATOPATHOLOGY LABORATORY Gross Description Specimen A: Received is one formalin filled container labeled with the patient's name and designated left mid upper back. The specimen consists of a shave biopsy measuring 8x8x1 mm. Jar 0. 12:43 PM [facility] DERMATOPATHOLOGY LABORATORY Microscopic Description Specimen A. [...] who agrees with the diagnosis. 12:43 PM [facility] DERMATOPATHOLOGY LABORATORY Disclaimer An external and internal positive and negative controls are appropriate for the histochemical, immunohistochemical and immunofluorescence stain(s) in this case (if any), except where stated explicitly. The performance characteristics of the stain(s) cited in this report were developed and its performance characteristic determined by the Dermatopathology Laboratory at [facility], directed by Dr. Lobito Veliz. These tests need not be, and therefore are not, approved by the [place] Food and Drug Administration. The tests are used for clinical purposes. Billing Codes Specimen Charges Stain Charges 05324 1 20310 41461 1 1 4 12:43 PM NUCLEAR PROCESS ENGINEER DERMATOPATHOLOGY LABORATORY Embedded Images 4 12:43 PM NUCLEAR PROCESS ENGINEER DERMATOPATHOLOGY LABORATORY Pathology/Cytolo gy TISSUE SPECIMEN FROM SKIN / Unknown 01/07/2024 3:33 AM NUCLEAR PROCESS ENGINEER 01/10/2024 12:00 PM NUCLEAR PROCESS ENGINEER Sergey Gonzalez MD LAB - PATHOLOGY/CYTO LOGY ORDERABLES DERMATOPATHOLOGY LABORATORY [facility] - Department of Dermatology [address], [address] [phone] from Last 3 Months Advance Directives * Full Code (Latest Code Status on File) Date Activated Date Inactivated Comments 06/29/2017 11:33 AM 06/29/2017 5:07 PM Care Teams Plate Glass Installer Helper Relationship Specialty Start Date End Date Karlos Dorsey MD [address] [place] [address] PCP - General 11/30/08
[2024-03-30 12:35] LABS: Estimated Glomerular Filt Rate 31
== END 2024-03-30 11:38 | disposition home or self-care (01) ==
PROVIDERS: PCP Pediatrics; Visit Provider Urology
DX: C64.2 Malignant neoplasm of left kidney, except renal pelvis (principal); Z90.5 Acquired absence of kidney
CPT/HCPCS: 74178; Q9967

== ENCOUNTER 2024-07-17 10:29 | Outpatient (CLI) | payer MEDICARE, SELFPAY ==
--- OUTSIDE RECORDS SUMMARY | 2024-07-17 11:08 | XMS_ITS | Clinical Summary ---
Author Organization [facility] Address [address] [place] [address] Care Team Providers Care Business Machine Mechanic Name Role Phone Karlos Dorsey MD Primary Care Provider [phone] Source Comments [facility],non-owned Affiliates and Associated Physician Practices is amultiple site organization consisting of ambulatory clinics and hospital sitesin [place], [place] and [place]. This disclosure is being madepursuant to the Care Everywhere program and may not contain all information available regarding this patient. Last updated 17.[facility] Allergies Active Allergy Reactions Criticality Noted Date Comments Doxycycline Diarrhea 06/29/2017 severe diarrhea -- I had to stop taking it Medications * Be aware that medications may not be up to date on this document. Alwaysverify current medications with the patient. enalapril (VASOTEC) 20 MG tablet Take 20 [...] 81 mg by mouth once daily Active [place]-3 Fatty Acids (FISH OIL) 1000 MG capsule Acti ve HYDROcodone-acet aminophen (NORCO) 5-325 MG tablet Take 1 tablet [...] at Not on file Legal Sex Male 6:34 PM PATHOLOGY LABORATORY DIRECTOR Gender Identity Not on file Sexual Orientation [...] 12:12 PM CDT Height 175.3 cm (5' 9) 06/29/2017 12:12 PM CDT Body Mass Index 27.32 06/29/2017 12:12 PM CDT Plan of Treatment Health Maintenance Due Date Last Done Comments DTAP/TDAP/TD VACCINES (1 - Tdap) 10/31/1962 PNEUMOCOCCAL VACCINE 50+ (1 of 1 - PCV) 10/31/1993 ZOSTER VACCINE (1 of 2) 10/31/1993 Respiratory Syncytial Virus (RSV) Vaccine Pt: or over 60 yrs (1 - 1-dose 75+ series) 10/31/2018 COVID-19 VACCINE ( - 2023-2 5 season) 2023 DEPRESSION SCREENING 02/16/2024 MEDICARE AWV CALENDAR YEAR 2024 INFLUENZA VACCINE (Season Ended) 2024 HEPATITIS B VACCINE Aged Out No longe r eligible based on patient's age to complete this topic HIB VACCINE Aged Out No longer eligi ble based on patient's age to complete this topic HPV VACCINE Aged Out No longer eligi ble based on patient's age to complete this topic MENINGOCOCCAL (Group B) VACC INE SHARED DECISION-MAKING Aged Out No longer eligibl e based on patient's age to complete this topic MENINGOCOCCAL GROUPS A/C/Y/W VACCINE Aged Out No longer eligible b ased on patient's age to complete this topic Insurance AET AET AETNA MEDICARE ADV SELF PAY NO INSURANCE Member Subscriber Plan / Payer (Ef fective for All Dates) Name:Galina Cowart Member ID:Not on file Relation to Subscriber:Not on file Name:GALINA COWART Subscriber ID:Not on file (Home) Address: [address] [place] [id number] Payer ID:Not on file Group ID:Not on file Type:Self Pay Address: [place], [place] Advance Directives * Full Code (Latest Code Status on File) Date Activated Date Inactivated Comments 06/29/2017 11:33 AM 06/29/2017 5:07 PM Care Teams Business Machine Mechanic Relationship Specialty Start Date End Date Karlos Dorsey MD [address] [place] [address] PCP - General 11/30/08
--- OUTSIDE RECORDS SUMMARY | 2024-07-17 11:08 | XMS_ITS | Clinical Summary ---
Author Organization [facility] Address [address] [place] [address] Care Team Providers Care Machine Brusher Name Role Phone Jericho Dorsey MD Primary Care Provider [phone] Allergies Active Allergy Reactions Criticality Noted Date [...] 1 tablet (12.5 mg total) by mouth junior staff accountant before breakfast Active magnesium oxide (MAG-OX) 250 mg (150.8 mg elemental) tablet Take 1 tablet (250 mg total) by mouth daily Active Active Problems Problem Noted Date Diagnosed Date Gastroesophageal reflux disease 09/07/2023 Personal history of colonic polyps 09/07/2023 Encounter for screening colonoscopy 09/07/2023 Gastroesophageal reflux disease without esophagi tis 06/05/2019 Overview (06/05/2019): Added automatically from request for surgery [id number] Screen for colon cancer 08/10/2018 Overview (08/10/2018): Added automatically from request for surgery [id number] Acute appendicitis with localized peritonitis Malignant neoplasm of prostate 12/31/2010 Overview (05/28/2017): Description: s/p RRP 2002 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 Overview (05/28/2017): Description: s/p IPP 2006 Male urinary stress incontinence 12/31/2010 Overview (05/28/2017): Description: s/p sling 2006 Encounters Date Type Department Care Team Description 05/08/2024 Telephone [facility] Gastroenterology at [address] [place] [address] Veronica Jimenez from Last 3 Months Surgical History Surgery Date Site/Laterality Comments [place] UNLISTED PROCEDURE ABDOME N PERITONEUM & OMENTUM Hernia Repair - x2 (Added by TW Conv) [place] HEMORRHOIDECTOMY INTERNAL RUBBER BAND LIGATIONS Hemorrhoidectomy - (Added by TW Conv) RADICAL PROSTATECTOMY Prostatect Retropubic Radical W/ Bilat Pelv Lymphadenectomy - 2002 Dr Mendoza in [place] (Added by TW Conv) [place] INSJ MULTI-COMPONENT INFLATABLE PENILE PROSTH Surg Penis [...] on file Legal Sex Male 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 Gender Identity Not on file Sexual Orientation [...] P M CDT Height 175.3 cm (5' 9) 08/21/2019 9:17 AM CDT Body Mass Index 27.81 08/21/2019 9:17 AM CDT Plan of Treatment Upcoming Encounters Date Type Department Care Team (Latest Contact Info) Description 11/07/2024 9:00 AM CDT Hospital Encounter [facility] [address] [place] [address] Harriet Grover MD [address] [facility] [address] [place] [address] 11/07/2024 9:00 AM CDT - 11/07/2024 9:30 AM CDT Surgery [facility] [address] [place] [address] Harriet Grover MD [address] [facility] [address] [place] [address] ESOPHAGOGASTRODUODENOSCOPY Scheduled Procedures Name Priority Associated Diagnoses Date/Ti me ESOPHAGOGASTRODUODENOSCOPY Gastroesophageal reflux disease, unspecified whether esophagitis present Personal history of colonic polyps Encounter for screening colonoscopy 11/07/2024 9:00 AM CDT COLONOSCOPY Gastroesophageal reflux disease, unspecified whether esophagitis present Personal history of colonic polyps Encounter for screening colonoscopy 11/07/2024 9:00 AM CDT Health Maintenance Due Date Last Done Comments Depression Screening 1945 DTaP/Tdap/Td Vaccine (1 - Tdap) 10/31/1954 Pneumococcal vaccine 65+ (1 of 1 - PCV) 10/31/1993 Zoster Vaccine (1 of 2) 10/31/1993 Well Visit 65+ 10/31/2008 Fall Risk Assessment 08/20/2020 08/21/2019 Influenza Vaccine (Season Ended) 2024 Hepatitis B Screening Completed 01/18/2009 , 08/06/2008, 06/19/2008 Colon Cancer Screening-CT Colonography Discontinued 09/26/2018, 07/27/2013 Colon Cancer Screening-Colonoscopy Discontinued 2018, 07/27/2013 [...] Romano MD - 09/26/2018 11:06 AM CDT [facility] Patient Name: Helder Concepcion Procedure Date: 09/26/2018 11:06 AM Date of : 1945 Admit Type: Outpatient Age: 72 Gender: Male Attending MD: Gerald Romano M.D. Room: [facility] ENDOSCOPY ROOM 2 Note Status: Finalized Patient [...] was passed under direct vision. The Colonoscope [id number] was introducedthrough the anus and advanced to [...] history of colonic polyps CPT copyright 2017 [employer]. All rights reserved. The codes documented in this report are preliminary and upon complaint supervisor reviewmay be revised to meet current compliance requirements. Recognized by the [employer] for promoting quality in endoscopy Gerald Romano MD ENDOSCOPY PROCEDURES Final Re sult from Last 3 Months or Most Recently Relevant to Health Maintenance Insurance T MEDICARE T MEDICARE AET MEDICARE Advance Directives For more information, please contact: [phone] * Full Code (Latest Code Status on File) Date Activated Date Inactivated Comments 08/21/2019 9:02 AM 08/21/2019 3:15 PM * Full Code Date Activated Date Inactivated Comments 09/26/2018 11:06 AM 09/26/2018 5:34 PM * Full Code Date Activated Date Inactivated Comments 09/26/2018 11:06 AM 09/26/2018 11:06 AM Care Teams Machine Brusher Relationship Specialty Start Date End Date Jericho Dorsey MD [address] [place] [address] PCP - General 08/28/17
--- OUTSIDE RECORDS SUMMARY | 2024-07-17 11:08 | XMS_ITS | Encounter Summary ---
Author Organization [facility] Address [address] [place] [address] Care Team Providers Care Cattle Inspector Name Role Phone Karlos Dorsey MD Primary Care Provider [phone] Encounter Details Date Type Department Care Team (Late st Contact Info) Description 12/04/2022 Lab Requisition [facility] - DermPath Lab [address] [facility] [place] [phone] Toan Du MD [address] [place] [address] Social History Tobacco Use Types Packs/Day Years Used Date Smoking Tobacco: Never Smokeless Tobacco: Never Alcohol Use Standard Drinks/Week Comments No 0 (1 standard drink = 0.6 oz pur e alcohol) Sex and Gender Information Value Date Recorded Sex Assigned at Not on file 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 Gender Identity Not on file Sexual Orientation Not on file documented as of this encounter Plan of Treatment Not on file documented as of this encounter Procedures Procedure Name Priority Date/Time Associated Diagnosis Comments DERMATOPATHOLOGY Routine 12/02/2022 12:0 0 AM CDT documented in this encounter Results * DERMATOPATHOLOGY (12/02/2022 12:00 AM CDT) Case Report Dermatopathology Report Case: [id number] Authorizing Provider: Toan Du MD Collected: 12/02/2022 12:00 AM Ordering Location: [facility] DermPath Lab Received: 12/04/2022 09:21 AM Pathologist: Mandi Riddle MD Specimen: Skin, right sup shoulder 2:21 PM T DERMATOPATHOLOGY LABORATORY Final Diagnosis Specimen A. SKIN, right sup shoulder: BASAL CELL CARCINOMA, NODULAR TYPE (C44.612) PRESENT AT MARGIN 2:21 PM T DERMATOPATHOLOGY LABORATORY at 1421 CDT Clinical History R/O Sm BCC. Check Margins. 2:21 PM T DERMATOPATHOLOGY LABORATORY Gross Description Specimen A: Received is one formalin filled container labeled with the patient's name and designated right sup shoulder. The specimen consists of a shave biopsy measuring 6x5x1 mm. Jar 0. 2:21 PM T DERMATOPATHOLOGY LABORATORY Microscopic Description Specimen A. SKIN, right sup shoulder: Within the dermis there are aggregates of basaloid cells with a high nuclear to cytoplasmic ratio and peripheral palisading. This lesion is present at the margin of the specimen. 2:21 PM T DERMATOPATHOLOGY LABORATORY Disclaimer An external and internal positive and negative controls are appropriate for the histochemical, immunohistochemical and immunofluorescence stain(s) in this case (if any), except where stated explicitly. The performance characteristics of the stain(s) cited in this report were developed and its performance characteristic determined by the Dermatopathology Laboratory at [facility], directed by Dr. Lobito Veliz. These tests need not be, and therefore are not, approved by the [place] Food and Drug Administration. The tests are used for clinical purposes. Billing Codes Specimen Charges Stain Charges 26043 1 2:21 PM CDT DERMATOPATHOLOGY LABORATORY Embedded Images 2:21 PM CDT DERMATOPATHOLOGY LABORATORY Pathology/Cytolog y TISSUE SPECIMEN FROM SKIN / Unknown 12/02/2022 12/04/2022 9:21 AM CDT Toan Du MD LAB - PATHOLOGY/CYTOLOGY ORDERAB LES Final Result DERMATOPATHOLOGY LABORATORY [facility] - Department of Dermatology [address], [address] [phone] documented in this encounter Visit Diagnoses Not on filedocumented in this encounter Care Teams Cattle Inspector Relationship Specialty Start Date End Date Karlos Dorsey MD [address] [place] [address] PCP - General 11/30/08 documented as of this encounter
--- OUTSIDE RECORDS SUMMARY | 2024-07-17 11:08 | XMS_ITS | Encounter Summary ---
Author Organization [facility] Address [address] [facility] [place] [address] Care Team Providers Care Roll Forming Machine Set Up Operator Name Role Phone Karlos Dorsey MD Primary Care Provider [phone] Encounter Details Date Type Department Care Team (Late st Contact Info) Description 05/27/2017 Lab Requisition 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 Gender Identity Not on file Sexual Orientation Not on file documented as of this encounter Plan of Treatment Not on file documented as of this encounter Procedures Procedure Name Priority Date/Time Associated Diagnosis Comments DERMPATH SLIDE CONSULT Routine 05/28/2017 12:00 AM CDT documented in this encounter Results * DERMPATH SLIDE CONSULT (05/28/2017 12:00 AM CDT) Case Report Dermatopathology Report Case: [id number] Authorizing Provider: Toan Du Collected: 05/28/2017 12:00 AM Pathologist: Cliff Veliz MD Received: 05/27/2017 04:29 PM Specimen: Slide(s), Left dorsal forearm, OSC# [id number] 8 2:31 PM CDT DERMATOPATHOLOGY LABORATORY Amended Report Adding the original biopsy date to the report. 2:31 PM CDT DERMATOPATHOLOGY LABORATORY Final Diagnosis Specimen A. 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 Original Bx Date: 05/18/2017 All slides returned. Any additional sections, special stains or immunohistochemical stains performed by our laboratory will be kept here on file. 2:31 PM CDT DERMATOPATHOLOGY LABORATORY Microscopic Description Specimen A. Slide(s), Left dorsal forearm, OSC# [id number]: There is a proliferation melanocytes distributed in [...] who agrees with the diagnosis. 2:31 PM CDT DERMATOPATHOLOGY LABORATORY Disclaimer An external and internal positive and negative controls are appropriate for the histochemical, immunohistochemical and immunofluorescence stain(s) in this case (if any), except where stated explicitly. The performance characteristics of the stain(s) cited in this report were developed and its performance characteristic determined by the Dermatopathology Laboratory at [facility]. These tests need not be, and therefore are not, approved by the [place] Food and Drug Administration. The tests are used for clinical purposes. Billing Codes Specimen Charges Stain Charges 91509 1 2:31 PM CDT DERMATOPATHOLOGY LABORATORY Synoptic Report MELANOMA OF THE [...] PM CDT Toan Du MD LAB - PATHOLOGY/CYTOLOGY ORDERAB LES Edited Result - Final DERMATOPATHOLOGY LABORATORY [facility] - Department of Dermatology [address] [place] [address] 5th Floor Lab [address] [phone] documented in this encounter Visit Diagnoses Not on filedocumented in this encounter Care Teams Roll Forming Machine Set Up Operator Relationship Specialty Start Date End Date Karlos Dorsey MD [address] [place] [address] PCP - General 11/30/08 documented as of this encounter
--- OUTSIDE RECORDS SUMMARY | 2024-07-17 11:08 | XMS_ITS | Encounter Summary ---
Author Organization [facility] Address [address] [facility] [place] [address] Care Team Providers Care Whittling Room Operator Name Role Phone Karlos Dorsey MD Primary Care Provider [phone] Encounter Details Date Type Department Care Team (Late st Contact Info) Description 12/31/2022 Lab Requisition [facility] - DermPath Lab [address] [facility] [place] [phone] Toan Du MD [address] [place] [address] Social History Tobacco Use Types Packs/Day Years Used Date Smoking Tobacco: Never Smokeless Tobacco: Never Alcohol Use Standard Drinks/Week Comments No 0 (1 standard drink = 0.6 oz pur e alcohol) Sex and Gender Information Value Date Recorded Sex Assigned at Not on file Legal Sex Male 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 HAND Gender Identity Not on file Sexual Orientation Not on file documented as of this encounter Plan of Treatment Not on file documented as of this encounter Procedures Procedure Name Priority Date/Time Associated Diagnosis Comments DERMATOPATHOLOGY Routine 12/29/2022 12:0 0 AM SHED HAND documented in this encounter Results * DERMATOPATHOLOGY (12/29/2022 12:00 AM SHED HAND) Case Report Dermatopathology Report Case: [id number] Authorizing Provider: Toan Du MD Collected: 12/29/2022 12:00 AM Ordering Location: [facility] DermPath Lab Received: 12/31/2022 09:21 AM Pathologist: Hailey Swanson MD Specimen: Skin, right sup shoulder 3 3:17 PM [facility] DERMATOPATHOLOGY LABORATORY Final Diagnosis Specimen A. SKIN, right sup shoulder: DERMAL SCAR RESIDUAL BASAL CELL CARCINOMA NOT IDENTIFIED (L90.5) 3 3:17 PM [facility] DERMATOPATHOLOGY LABORATORY at 1517 SHED HAND Clinical History Bx Proven BCC Check Margin and Prior Biopsy 3 3:17 PM [facility] DERMATOPATHOLOGY LABORATORY Gross Description Specimen A: Received is one formalin filled container labeled with the patient's name and designated right sup shoulder. The specimen consists of a non-oriented ellipse of skin measuring 80r86v2 mm. Also, there lesion measuring 4x2 mm. The margin is inked green. The 12 o'clock and 6 o'clock tips are submitted in cassette 1. The remainder of the ellipse is serially sectioned and submitted in cassette 2 - 3. Jar 0. 3 3:17 PM [facility] DERMATOPATHOLOGY LABORATORY Microscopic Description Specimen A. SKIN, right sup shoulder: There are fibroblasts and collagen bundles oriented parallel to the skin surface. There are elongated blood vessels, some of which are oriented perpendicular to the skin surface. No basal cell carcinoma is identified. 3 3:17 PM [facility] DERMATOPATHOLOGY LABORATORY Disclaimer An external and internal positive and negative controls are appropriate for the histochemical, immunohistochemical and immunofluorescence stain(s) in this case (if any), except where stated explicitly. The performance characteristics of the stain(s) cited in this report were developed and its performance characteristic determined by the Dermatopathology Laboratory at [facility], directed by Dr. Lobito Veliz. These tests need not be, and therefore are not, approved by the [place] Food and Drug Administration. The tests are used for clinical purposes. Billing Codes Specimen Charges Stain Charges 29026 1 3 3:17 PM [facility] DERMATOPATHOLOGY LABORATORY Embedded Images 3 3:17 PM [facility] DERMATOPATHOLOGY LABORATORY Pathology/Cytolog y TISSUE SPECIMEN FROM SKIN / Unknown 12/29/2022 12/31/2022 9:21 AM SHED HAND Toan Du MD LAB - PATHOLOGY/CYTOLOGY ORDERAB LES Final Result DERMATOPATHOLOGY LABORATORY [facility] - Department of Dermatology [facility] Specialized Medicine [address] [facility], 3rd Floor [address] [phone] documented in this encounter Visit Diagnoses Not on filedocumented in this encounter Care Teams Whittling Room Operator Relationship Specialty Start Date End Date Karlos Dorsey MD [address] [place] [address] PCP - General 11/30/08 documented as of this encounter
--- OUTSIDE RECORDS SUMMARY | 2024-07-17 11:08 | XMS_ITS | Encounter Summary ---
Author Organization [facility] Address [address] [place] [address] Care Team Providers Care Inspector Wire Rope Name Role Phone Karlos Dorsey MD Primary Care Provider [phone] Encounter Details Date Type Department Care Team (Late st Contact Info) Description 01/07/2024 Lab Requisition [facility] - DermPath Lab [address] [place] [phone] Sergey Gonzalez MD [facility] DERMATOLOGY [address] [place] [phone] Neoplasm of uncertain behavior of skin Social History Tobacco Use Types Packs/Day Years Used Date Smoking Tobacco: Never Smokeless Tobacco: Never Alcohol Use Standard Drinks/Week Comments No 0 (1 standard drink = 0.6 oz pur e alcohol) Sex and Gender Information Value Date Recorded Sex Assigned at Not on file 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 Gender Identity Not on file Sexual Orientation Not on file documented as of this encounter Plan of Treatment Not on file documented as of this encounter Procedures Procedure Name Priority Date/Time Associated Diagnosis Comments DERMATOPATHOLOGY Routine 01/07/2024 3:33 AM GREY GOODS TESTER Neoplasm of uncertain behavior of skin documented in this encounter Results * DERMATOPATHOLOGY (01/07/2024 3:33 AM GREY GOODS TESTER) Case Report Dermatopathology Report Case: [id number] Authorizing Provider: Sergey Gonzalez MD Collected: 01/07/2024 03:33 AM Ordering Location: [facility] - Received: 01/10/2024 12:00 PM DermPath Lab Pathologist: Chelo Kenyon MD Specimen: Skin, left mid upper back 12:43 PM [facility] DERMATOPATHOLOGY LABORATORY Final Diagnosis Specimen A. SKIN, left mid upper back: JUNCTIONAL MELANOCYTIC PROLIFERATION, INFLAMED; NOT PRESENT AT SAMPLED MARGIN (D48.5) (see microscopic description and comment) 12:43 PM [facility] DERMATOPATHOLOGY LABORATORY at [address] [facility] Clinical History Malignant melanoma 12:43 PM [facility] DERMATOPATHOLOGY LABORATORY Gross Description Specimen A: Received is one formalin filled container labeled with the patient's name and designated left mid upper back. The specimen consists of a shave biopsy measuring 8x8x1 mm. Jar 0. 12:43 PM [facility] DERMATOPATHOLOGY LABORATORY Microscopic Description Specimen A. SKIN, [...] who agrees with the diagnosis. 12:43 PM [facility] DERMATOPATHOLOGY LABORATORY Disclaimer An external and internal positive and negative controls are appropriate for the histochemical, immunohistochemical and immunofluorescence stain(s) in this case (if any), except where stated explicitly. The performance characteristics of the stain(s) cited in this report were developed and its performance characteristic determined by the Dermatopathology Laboratory at [facility], directed by Dr. Lobito Veliz. These tests need not be, and therefore are not, approved by the [place] Food and Drug Administration. The tests are used for clinical purposes. Billing Codes Specimen Charges Stain Charges 20675 1 78452 84588 1 1 11/27/202 4 12:43 PM GREY GOODS TESTER DERMATOPATHOLOGY LABORATORY Embedded Images 12:43 PM GREY GOODS TESTER DERMATOPATHOLOGY LABORATORY Pathology/Cytolo gy TISSUE SPECIMEN FROM SKIN / Unknown 01/07/2024 3:33 AM GREY GOODS TESTER 01/10/2024 12:00 PM GREY GOODS TESTER us Sergey Gonzalez MD LAB - PATHOLOGY/CYTOLOGY ORDE CRISTOBAL Final Result DERMATOPATHOLOGY LABORATORY [facility] - Department of Dermatology [facility] Specialized Medicine [address] [place] [address], [address] [phone] documented in this encounter Visit Diagnoses Diagnosis Neoplasm of uncertain behavior of skin documented in this encounter Care Teams Inspector Wire Rope Relationship Specialty Start Date End Date Karlos Dorsey MD [address] [place] [address] PCP - General 11/30/08 documented as of this encounter
--- OUTSIDE RECORDS SUMMARY | 2024-07-17 11:08 | XMS_ITS | Encounter Summary ---
Author Organization [facility] Address [address] [place] [address] Care Team Providers Care Medication Aid Name Role Phone Karlos Dorsey MD Primary Care Provider [phone] Encounter Details Date Type Department Care Team (Late st Contact Info) Description 05/05/2019 Lab Requisition [facility] DermPath Lab [address] [facility] [place] [address] Toan Du MD [address] [place] [address] Social History Tobacco Use Types Packs/Day Years Used Date Smoking Tobacco: Never Smokeless Tobacco: Never Alcohol Use Standard Drinks/Week Comments No 0 (1 standard drink = 0.6 oz pur e alcohol) Sex and Gender Information Value Date Recorded Sex Assigned at Not on file 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 Gender Identity Not on file Sexual Orientation Not on file documented as of this encounter Plan of Treatment Not on file documented as of this encounter Procedures Procedure Name Priority Date/Time Associated Diagnosis Comments DERMATOPATHOLOGY Routine 05/04/2019 12:0 0 AM CDT documented in this encounter Results * DERMATOPATHOLOGY (05/04/2019 12:00 AM CDT) Case Report Dermatopathology Report Case: [id number] Authorizing Provider: Toan Du MD Collected: 05/04/2019 12:00 AM Ordering Location: [facility] DermPath Lab Received: 05/05/2019 10:07 AM Pathologist: Mnadi Riddle MD Specimen: Skin, nasal tip 0 12:41 PM CDT DERMATOPATHOLOGY LABORATORY Final Diagnosis Specimen A. SKIN, nasal tip: BASAL CELL CARCINOMA, INFILTRATIVE PATTERN (C44.311) 0 12:41 PM CDT DERMATOPATHOLOGY LABORATORY at 1241 CDT Clinical History R/O neoplasm. 0 12:41 PM [...] determined by the Dermatopathology Laboratory at [facility], directed by Dr. Lobito Veliz. These tests need not be, and therefore are not, approved by the [place] Food and Drug Administration. The tests are used for clinical purposes. Billing Codes Specimen Charges Stain Charges 69437 1 0 12:41 PM CDT DERMATOPATHOLOGY LABORATORY Embedded Images 0 12:41 PM CDT DERMATOPATHOLOGY LABORATORY Pathology/Cytolog y TISSUE SPECIMEN FROM SKIN / Unknown 05/04/2019 05/05/2019 10:07 AM CDT Toan Du MD LAB - PATHOLOGY/CYTOLOGY ORDERAB LES Final Result DERMATOPATHOLOGY LABORATORY [facility] - Department of Dermatology [address] [place] [address], [address]th [place] [address], [facility] [phone] documented in this encounter Visit Diagnoses Not on filedocumented in this encounter Care Teams Medication Aid Relationship Specialty Start Date End Date Siefken, Karlos, MD [address] [place] [address] PCP - General 11/30/08 documented as of this encounter
--- OUTSIDE RECORDS SUMMARY | 2024-07-17 11:08 | XMS_ITS | Referral Summary ---
Author Organization [facility] Address [address] [place] [address] Care Team Providers Care Alligator Trapper Name Role Phone Jericho Doresy MD Primary Care Provider [phone] Encounters Date Type Department Care Team Description 05/08/[address] [facility] G[facility]ology at [address] [place] [address] Veronica Jimenez from Last 3 Months Allergies Active Allergy [...] hours as needed for pain. 20 tablet 8 Active Additional Information Patient not taking.Reported on 09/07/2023 hydroCHLOROthia zide 12.5 mg tablet Take 1 tablet (12.5 mg total) by mouth fiber designer before breakfast Active magnesium oxide (MAG-OX) 250 mg (150.8 mg elemental) tablet Take 1 tablet (250 mg total) by mouth daily Active Active Problems Problem Noted Date Diagnosed Date Gastroesophageal reflux disease 09/07/2023 Personal history of colonic polyps 09/07/2023 Encounter for screening colonoscopy 09/07/2023 Gastroesophageal reflux disease without esophagi tis 06/05/2019 Overview (06/05/2019): Added automatically from request for surgery [id number] Screen for colon cancer 08/10/2018 Overview (08/10/2018): Added automatically from request for surgery [id number] Acute appendicitis with localized peritonitis Malignant neoplasm [...] on file 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 Gender Identity Not on file Sexual Orientation [...] Description 11/07/2024 9:00 AM CDT Hospital Encounter [address] [address] Harriet Grover MD [address] [facility] [address] [place] [id number] 11/07/2024 9:00 AM CDT - 11/07/2024 9:30 AM CDT Surgery [address] [address] Harriet Grover MD [address] [facility] [address] [place] [address] ESOPHAGOGASTRODUODENOSCOPY Scheduled Procedures Name Priority Associated Diagnoses Date/Ti me ESOPHAGOGASTRODUODENOSCOPY Gastroesophageal reflux disease, unspecified whether esophagitis present Personal history of colonic polyps Encounter for screening colonoscopy 11/07/2024 9:00 AM CDT COLONOSCOPY Gastroesophageal reflux disease, unspecified whether esophagitis present Personal history of colonic polyps Encounter for screening colonoscopy 11/07/2024 9:00 AM CDT Procedures Procedure Name Priority Date/Time Associated Diagnosis Comments COLONOSCOPY 09/26/2018 11:06 AM CDT from Last 3 Months or Most Recently Relevant to Health Maintenance Results * COLONOSCOPY (09/26/2018 11:06 AM CDT) Anatomical Region Laterality Modality Other Narrative Procedure Note Gerald Romano MD - 09/26/2018 11:[address] [facility] Patient Name: Helder Concepcion Procedure [...] was passed under direct vision. The Colonoscope [id number] was introducedthrough the anus and advanced to [...] history of colonic polyps CPT copyright 2017 [employer]. All rights reserved. The codes documented in this report are preliminary and upon construction administrator reviewmay be revised to meet current compliance requirements. Recognized by the [employer] for promoting quality in endoscopy Gerald Romano MD ENDOSCOPY PROCEDURES Final Re sult from Last 3 Months or Most Recently Relevant to Health Maintenance Insurance AET MEDICARE T MEDICARE T MEDICARE Advance Directives For more information, please contact: [phone] * Full Code (Latest Code Status on File) Date Activated Date Inactivated Comments 08/21/2019 9:02 AM 08/21/2019 3:15 PM * Full Code Date Activated Date Inactivated Comments 09/26/2018 11:06 AM 09/26/2018 5:34 PM * Full Code Date Activated Date Inactivated Comments 09/26/2018 11:06 AM 09/26/2018 11:06 AM Care Teams Alligator Trapper Relationship Specialty Start Date End Date Jericho Dorsey MD [address] [place] [address] PCP - General 08/28/17
[2024-07-17 11:23] LABS: Albumin Level 4.2 g/dL (3.5-5.1); Anion Gap 7 mmol/L (4-12); Blood Urea Nitrogen 17 mg/dL (9-20); Calcium 9.2 mg/dL (8.4-10.2); Carbon Dioxide 28 mmol/L (22-30); Chloride 105 mmol/L (98-107); Estimated Glomerular Filt Rate 36; Glucose 131 mg/dL (65-110); Phosphorus 3.4 mg/dL (2.5-4.5); Potassium 4.1 mmol/L (3.4-5.0); Sodium 140 mmol/L (137-145)
[2024-07-17 12:19] LABS: Creatinine Urine 178.1 mg/dL; Total Protein Urine Random 12 mg/dL; Ur Ttl Prot Creatinine Ratio 0.07 mg/mg (0-0.20)
== END 2024-07-17 10:30 | disposition home or self-care (01) ==
PROVIDERS: PCP Pediatrics; Referring Provider Pediatrics; Visit Provider Internal Medicine Nephrology
DX: I12.9 Hypertensive chronic kidney disease with stage 1 through stage 4 chronic kidney disease, or unspecified chronic kidney disease (principal); N18.32 Chronic kidney disease, stage 3b; Z90.5 Acquired absence of kidney; E53.8 Deficiency of other specified B group vitamins
CPT/HCPCS: 36415; 80069; 82570; 82607; 84156